=== PATIENT | male | born 1950 | race Caucasian/White ===

== ENCOUNTER 2020-12-29 21:05 | Inpatient (IN) | payer MEDICARE ==
[~2020-12-29] VITALS: Ht 177.8 cm; Wt 153.4 kg
[~2020-12-29 21:05] MED LIST: ASP81CT PO; COLE3.75 PO; HYDR1CAP2 PO; LISI1TAB10 PO; MULT-608 PO; NYST15CR3 TP; OMEG1CAP40 PO; ROSI1TAB23 PO; SERT100T PO
[2020-12-29] MEDS ORDERED: ONDANSETRON 4 MG/2 ML (SDV) Z0FRAN ONE (22:03)
[2020-12-29] MEDS ORDERED: ACETAMINOPHEN 500 MG TAB (TYLENOL) ONE (22:03)
[2020-12-29] MEDS ORDERED: ONDANSETRON 4 MG/2 ML (SDV) Z0FRAN IV STA (22:11)
[2020-12-29] MEDS ORDERED: LACTATED RINGERS 1,000 ML IV ONE (22:15)
[2020-12-29] MEDS ORDERED: cefTRIAXone FOR IV USE 1,000 MG in WATER (STERILE) FOR INJECTION 10 ML IV ONE (22:15)
[2020-12-29] MEDS ORDERED: ACETAMINOPHEN 500 MG TAB (TYLENOL) PO PRN (22:15)
[2020-12-29] MEDS ORDERED: AZITHROMYCIN INJECTION 500 MG in NS (IVPB) 250 ML IV ONE (22:15)
[2020-12-29] MEDS: cefTRIAXone 1,000 MG IV (ROCEPHIN) VIAL ONE (22:17)
[2020-12-29] MEDS: LACTATED RINGERS 1,000 ML IV ONE (22:17)
[2020-12-29] MEDS: WATER (STERILE) FOR INJECTION 10 ML ONE (22:18)
--- NOTE | 2020-12-29 22:19 | ED Respiratory ---
General Chief Complaint: Respiratory Problems Stated Complaint: FEVER/COUGH/NAUSEA Source: patient Exam Limitations: no limitations History of Present Illness Date Seen by Provider: Dec 29, 2020 Time Seen by Provider: 22:00 Initial Comments Patient presents ER by private conveyance from home with chief complaint of nonproductive cough shortness of air fever T-max of 100.5. Been going on for the past several days. He has been dizzy and had 7 or 8 falls in the past couple days. He is not having any pain from any that. Is not on any blood thinners. No loss of consciousness or syncope. He says he gets nauseated whenever he lays flat such as to work on a car but not when he lays down in bed to sleep. He is not having orthopnea or increased swelling or weight gain. He follows with Dr. Crawford but does not have any known coronary, heart failure, dysrhythmia. He is not a smoker. He wanted to be tested for COVID-19. No known sick contacts. He has not had any antipyretics today. The patient wears CPAP at night. He has had a pneumonia vaccine and influenza vaccine this season but no Covid vaccine. Allergies and Home Medications Allergies Coded Allergies: No Known Drug Allergies (Unverified , 01/02/11) Home Medications Aspirin 81 Mg Chew, 81 MG PO DAILY, (Reported) Colesevelam Hcl 3.75 Gm Powd.pack, 3 TAB PO BID, (Reported) Docosahexanoic Acid/Epa 1 Cap Capsule, 1 CAP PO BID, (Reported) Hctz/Lisinopril 1 Tab Tablet, 1 EACH PO DAILY, (Reported) Hydrocodone Bit/Acetaminophen 1 Each Capsule, 1 EACH PO PRN, (Reported) Nystatin 30 Gm Cream.gm., 30 GM TP PRN, (Reported) Rosiglitazone/Metformin Hcl 1 Each Tablet, 1 EACH PO BID, (Reported) Patient Home Medication List Home Medication List Reviewed: Yes Review of Systems Review of Systems Constitutional: chills, dizziness, fever, malaise, weakness EENTM: No ear pain, No eye pain Respiratory: cough; No phlegm; short of breath; No wheezing Cardiovascular: No chest pain, No Hx of Intervention, No palpitations Gastrointestinal: No abdominal pain, No constipation, No diarrhea; nausea; No vomiting Genitourinary: No decreased output, No discharge Musculoskeletal: No back pain, No joint pain Psychiatric/Neurological: Denies Anxiety, Denies Depressed All Other Systems Reviewed Negative Unless Noted: Yes Past Neunpay-Ivsikq-Yzubpb Hx Patient Social History Alcohol Use: Denies Use Smoking Status: Never a Smoker Past Medical History Reproductive Disorders: No Physical Exam Vital Signs - First Documented 12/28/20 3 22:19 21:36 Temp 38.1 Pulse 96 Resp 20 B/P (MAP) 185/91 (122) Pulse Ox 96 O2 Delivery Room Air Capillary Refill : Height: '" Weight: lbs. oz. kg; BMI Method:Stated General Appearance: mild distress, obese Eyes: Bilateral Eye Normal Inspection, Bilateral Eye PERRL, Bilateral Eye EOMI HEENT: PERRL/EOMI, pharynx normal, other (Bilateral TMs with otosclerosis right TM with some clear mucoid effusion and mild bulging. No erythema or injection bilaterally. Canals and pinnae unremarkable.) Neck: full range of motion, normal inspection Respiratory: lungs clear, normal breath sounds, no respiratory distress, no accessory muscle use Cardiovascular: normal peripheral pulses, regular rate, rhythm Gastrointestinal: normal bowel sounds, non tender, soft, no organomegaly Extremities: normal range of motion, normal inspection, normal capillary refill Neurologic/Psychiatric: no motor/sensory deficits, alert, normal mood/affect, oriented x 3 Skin: normal color, warm/dry Focused Exam Lactate Level 12/29/20 22:00: Lactic Acid Level 1.69 Lactic Acid Level Laboratory Tests Test 12/29/20 22:00 Lactic Acid Level 1.69 MMOL/L (0.50-2.00) Progress/Results/Core Measures Suspected Sepsis SIRS Temperature: Pulse: Respiratory Rate: Laboratory Tests 12/29/20 22:00: White Blood Count 11.0 Blood Pressure / Mean: 12/29/20 22:00: Lactic Acid Level 1.69 Laboratory Tests 12/29/20 22:00: Creatinine 1.25, INR Comment 1.0, Platelet Count 201, Total Bilirubin 2.3H Results/Orders Lab Results Laboratory Tests Test 12/29/20 22:00 12/29/20 23:28 Range/Units White Blood Count 11.0 4.3-11.0 10^3/uL Red Blood Count 4.60 4.30-5.52 10^6/uL Hemoglobin 14.0 13.3-17.7 g/dL Hematocrit 41 40-54 % Mean Corpuscular Volume 90 80-99 fL Mean Corpuscular Hemoglobin 30 25-34 pg Mean Corpuscular Hemoglobin Concent 34 32-36 g/dL Red Cell Distribution Width 13.0 10.0-14.5 % Platelet Count 201 130-400 10^3/uL Mean Platelet Volume 10.3 9.0-12.2 fL Immature Granulocyte % (Auto) 1 % Neutrophils (%) (Auto) 85 H 42-75 % Lymphocytes (%) (Auto) 6 L 12-44 % Monocytes (%) (Auto) 8 0-12 % Eosinophils (%) (Auto) 0 0-10 % Basophils (%) (Auto) 0 0-10 % Neutrophils # (Auto) 9.4 H 1.8-7.8 10^3/uL Lymphocytes # (Auto) 0.6 L 1.0-4.0 10^3/uL Monocytes # (Auto) 0.9 0.0-1.0 10^3/uL Eosinophils # (Auto) 0.0 0.0-0.3 10^3/uL Basophils # (Auto) 0.0 0.0-0.1 10^3/uL Immature Granulocyte # (Auto) 0.1 0.0-0.1 10^3/uL Prothrombin Time 14.0 12.2-14.7 SEC INR Comment 1.0 0.8-1.4 Activated Partial Thromboplast Time 35 24-35 SEC Sodium Level 133 L 135-145 MMOL/L Potassium Level 4.1 3.6-5.0 MMOL/L Chloride Level 99 98-107 MMOL/L Carbon Dioxide Level 19 L 21-32 MMOL/L Anion Gap 15 H 5-14 MMOL/L Blood Urea Nitrogen 23 H 7-18 MG/DL Creatinine 1.25 0.60-1.30 MG/DL Estimat Glomerular Filtration Rate 57 BUN/Creatinine Ratio 18 Glucose Level 180 H 70-105 MG/DL Lactic Acid Level 1.69 0.50-2.00 MMOL/L Calcium Level 9.2 8.5-10.1 MG/DL Corrected Calcium 9.2 8.5-10.1 MG/DL Total Bilirubin 2.3 H 0.1-1.0 MG/DL Aspartate Amino Transf (AST/SGOT) 21 5-34 U/L Alanine Aminotransferase (ALT/SGPT) 25 0-55 U/L Alkaline Phosphatase 75 40-136 U/L Total Protein 7.4 6.4-8.2 GM/DL Albumin 4.0 3.2-4.5 GM/DL Coronavirus 2019 (ADAM) Negative Negative Urine Color YELLOW Urine Clarity SL CLOUDY Urine pH 6.0 5-9 Urine Specific Switzer 1.025 H 1.016-1.022 Urine Protein 2+ H NEGATIVE Urine Glucose (UA) NEGATIVE NEGATIVE Urine Ketones 1+ H NEGATIVE Urine Nitrite NEGATIVE NEGATIVE Urine Bilirubin NEGATIVE NEGATIVE Urine Urobilinogen 2.0 < = 1.0 MG/DL Urine Leukocyte Esterase NEGATIVE NEGATIVE Urine RBC (Auto) TRACE-I NEGATIVE Urine RBC NONE /HPF Urine WBC NONE /HPF Urine Squamous Epithelial Cells 0-2 /HPF Urine Crystals NONE /LPF Urine Bacteria FEW H /HPF Urine Casts NONE /LPF Urine Mucus SMALL H /LPF Urine Culture Indicated CULTURE PENDING Micro Results Microbiology 12/29/20 Influenza Types A,B Antigen (ARELY) - Final, Complete My Orders Orders - YOU STERN Lactated Ringers (Lr 1000 Ml Iv Solution (12/29/20 22:02) Ondansetron Injection (Zofran Injectio (12/29/20 22:03) Acetaminophen Tablet (Tylenol Tablet) (12/29/20 22:03) Water (Sterile) For Injection (Sterile W (12/29/20 22:03) Ceftriaxone For Iv Use (Rocephin For I (12/29/20 22:03) Cbc With Automated Diff (12/29/20 22:11) Comprehensive Metabolic Panel (12/29/20 22:11) Blood Culture (12/29/20 22:11) Urinalysis (12/29/20 22:11) Urine Culture (12/29/20 22:11) Protime With Inr (12/29/20 22:11) Partial Thromboplastin Time (12/29/20 22:11) Chest 1 View, Ap/Pa Only (12/29/20 22:11) Acetaminophen Tablet (Tylenol Tablet) (12/29/20 22:15) Ed Iv/Invasive Line Start (12/29/20 22:11) Ed Iv/Invasive Line Start (12/29/20 22:11) Vital Signs Adult Sepsis Patie Q15M (12/29/20 22:11) Ondansetron Injection (Zofran Injectio (12/29/20 22:11) O2 (12/29/20 22:11) Remove Rings In Anticipation O (12/29/20 22:11) Lactic Acid Analyzer (12/29/20 22:11) Influenza A And B Antigens (12/29/20 22:11) Lactated Ringers (Lr 1000 Ml Iv Solution (12/29/20 22:15) Ceftriaxone For Iv Use (Rocephin For I (12/29/20 22:15) Azithromycin Injection (Zithromax Inject (12/29/20 22:15) Ct Head/Cervical Spine Wo (12/29/20 22:11) Covid 19 Inhouse Test (12/29/20 22:11) Medications Given in ED Current Medications Medications Dose Ordered Sig/Chele Route Start Time Stop Time Status Last Admin Dose Admin Acetaminophen 500 mg STK-MED ONCE .ROUTE 12/29/20 22:03 12/29/20 22:09 DC 12/29/20 22:17 1,000 MG Acetaminophen 1,000 mg ONCE PRN PO 12/29/20 22:15 12/29/20 22:20 DC 12/28/20 22:19 1,000 MG Azithromycin 500 mg/Sodium Chloride 255 ml @ 250 mls/hr ONCE ONCE IV 12/29/20 22:15 12/29/20 23:16 DC 12/29/20 22:29 250 MLS/HR Ceftriaxone Sodium 1000 mg/ Sterile Water 10 ml @ 200 mls/hr ONCE ONCE IV 12/29/20 22:15 12/29/20 22:17 DC 12/29/20 22:19 200 MLS/HR Ondansetron HCl 4 mg STK-MED ONCE .ROUTE 12/29/20 22:03 12/29/20 22:09 DC 12/29/20 22:17 8 MG Vital Signs/I&O 12/28/20 12/29/20 12/29/20 22:19 21:36 22:17 Temp 38.1 38.1 38.1 Pulse 96 Resp 20 B/P (MAP) 185/91 (122) Pulse Ox 96 O2 Delivery Room Air 12/30/20 00:00 Intake Total 1265 ml Balance 1265 ml Capillary Refill : Progress Note : Time: 22:17 Progress Note Septic work-up based on his elevated temperature of 100.5 and heart rate in the mid 90s. We have encouraged him to get a CT of his head and C-spine with his history of multiple falls. Nothing tender to suggest further musculoskeletal injury. Suspect pneumonia versus bronchitis. Some of his nausea and dizziness may be related to inner ear infection likely viral as he has a mucoid effusion on his right ear. He has scarring on his TMs related to myringotomy in the past. We will give him some Zofran and Tylenol for his fever and nausea. We will start with just 1 L of fluids while awaiting on the initial Covid and flu swab. If it looks more like a bacterial lobar pneumonia then we will pursue more IV fluids but for now Rocephin and azithromycin. Diagnostic Imaging Diagonstic Imaging: Xray Plain Films/CT/US/NM/MRI: chest Comments No acute cardiopulmonary process. Reviewed: Reviewed by Me Diagonstic Imaging: CT Plain Films/CT/US/NM/MRI: c-spine, head Comments No acute findings in the head or brain. Enlargement of the lateral ventricles. Cannot exclude a normal pressure hydrocephalus. No acute findings in the cervical spine Reviewed: Reviewed Night [facility] Study, Reviewed by Me Departure Communication (Admissions) Time/Spoke to Admitting Phy: 01:06 Dr Crawford: Discussed the case as well as the CT findings. Plan to put him on Rocephin azithromycin but on the floor. She agrees with the inpatient plan for treatment of pneumonia. Covid PUI Impression Primary Impression: Pneumonia Qualified Codes: J18.9 - Pneumonia, unspecified organism Additional Impressions: Sepsis Qualified Codes: A41.9 - Sepsis, unspecified organism Person under investigation for COVID-19 History of falling Suspect normal pressure hydrocephalus Disposition: ADMITTED INPATIENT Condition: Stable Admissions Decision to Admit Reason: Admit from ER (General) Decision to Admit/Date: Dec 30, 2020 Time/Decision to Admit Time: 01:06 Departure-Patient Inst. Referrals: GIOVANNA CRAWFORD MD (PCP/Family) Primary Care Physician YOU STERN Dec 29, 2020 22:19
[2020-12-29 22:30] LABS: BASOPHILS % (AUTO) 0 % (0-10); EOSINOPHILS % (AUTO) 0 % (0-10); HEMATOCRIT 41 % (40-54); LYMPHOCYTES # (AUTO) 0.6 10^3/uL (1.0-4.0); LYMPHOCYTES % (AUTO) 6 % (12-44); MEAN CORPUSCULAR HEMOGLOBIN 30 pg (25-34); MEAN CORPUSCULAR HGB CONC 34 g/dL (32-36); MEAN CORPUSCULAR VOLUME 90 fL (80-99); MEAN PLATELET VOLUME 10.3 fL (9.0-12.2); MONOCYTES # (AUTO) 0.9 10^3/uL (0.0-1.0); MONOCYTES % (AUTO) 8 % (0-12); NEUTROPHILS # (AUTO) 9.4 10^3/uL (1.8-7.8); NEUTROPHILS % (AUTO) 85 % (42-75); PLATELET COUNT 201 10^3/uL (130-400)
[2020-12-29 22:41] LABS: POTASSIUM 4.1 MMOL/L (3.6-5.0)
[2020-12-29 22:42] LABS: CALCIUM 9.2 MG/DL (8.5-10.1)
[2020-12-29 22:43] LABS: TOTAL PROTEIN 7.4 GM/DL (6.4-8.2)
[2020-12-29 22:45] LABS: BILIRUBIN,TOTAL 2.3 MG/DL (0.1-1.0)
[2020-12-29 22:47] LABS: CREATININE SERUM 1.25 MG/DL (0.60-1.30)
[2020-12-29 23:34] LABS: BILIRUBIN,URINE NEGATIVE (NEGATIVE); CLARITY,URINE SL CLOUDY; COLOR,URINE YELLOW; GLUCOSE, URINE (UA) NEGATIVE (NEGATIVE); KETONES,URINE 1+ (NEGATIVE); LEUKOCYTE ESTERASE ,URINE NEGATIVE (NEGATIVE); NITRITE,URINE NEGATIVE (NEGATIVE); PROTEIN,URINE 2+ (NEGATIVE)
[2020-12-29 23:45] LABS: BACTERIA,URINE FEW /HPF; SQUAMOUS EPITHELIAL CELL,UR 0-2 /HPF
[2020-12-30] VITALS (7 sets, daily range): BP systolic 147–185; BP diastolic 65–91
[2020-12-30] MEDS ORDERED: LACTATED RINGERS 1,000 ML IV ONE (01:15)
[2020-12-30] MEDS: LACTATED RINGERS 1,000 ML IV ONE (01:56)
[2020-12-30] MEDS: WATER (STERILE) FOR INJECTION 10 ML ONE (01:57)
[2020-12-30] MEDS: cefTRIAXone 1,000 MG IV (ROCEPHIN) VIAL ONE (01:57)
[2020-12-30] MEDS ORDERED: ONDANSETRON 4 MG/2 ML (SDV) Z0FRAN IV PRN (04:15)
[2020-12-30] MEDS: LACTATED RINGERS 1,000 ML IV SCH ×3 (04:31→17:20)
[2020-12-30] MEDS ORDERED: RT-ALBUTEROL INHALER HFA (VENTOLIN HFA) 18 GM IH PRN (04:45)
[2020-12-30 06:29] LABS: BASOPHILS % (AUTO) 0 % (0-10); EOSINOPHILS % (AUTO) 0 % (0-10); HEMATOCRIT 39 % (40-54); HEMOGLOBIN 12.8 g/dL (13.3-17.7); LYMPHOCYTES # (AUTO) 0.7 10^3/uL (1.0-4.0); LYMPHOCYTES % (AUTO) 8 % (12-44); MEAN CORPUSCULAR HEMOGLOBIN 30 pg (25-34); MEAN CORPUSCULAR HGB CONC 33 g/dL (32-36); MEAN CORPUSCULAR VOLUME 92 fL (80-99); MEAN PLATELET VOLUME 9.8 fL (9.0-12.2); MONOCYTES % (AUTO) 11 % (0-12); NEUTROPHILS # (AUTO) 7.7 10^3/uL (1.8-7.8); NEUTROPHILS % (AUTO) 80 % (42-75); PLATELET COUNT 172 10^3/uL (130-400); WHITE BLOOD COUNT 9.5 10^3/uL (4.3-11.0)
[2020-12-30] MEDS ORDERED: CATHETER FLUSH 10 ML SYR IV PRN (06:30)
[2020-12-30] MEDS: inSUlin ASPART (NovoLOG) 1 UNIT/0.01 ML (CHARGE PER UNIT) SC SCH ×4 (06:32→21:56)
[2020-12-30 06:51] LABS: ALBUMIN 3.6 GM/DL (3.2-4.5)
[2020-12-30 06:52] LABS: CALCIUM 8.9 MG/DL (8.5-10.1)
[2020-12-30 06:53] LABS: TOTAL PROTEIN 6.9 GM/DL (6.4-8.2)
[2020-12-30 06:55] LABS: BILIRUBIN,TOTAL 2.3 MG/DL (0.1-1.0)
[2020-12-30 06:57] LABS: CREATININE SERUM 1.19 MG/DL (0.60-1.30)
--- NOTE | 2020-12-30 07:00 | Diagnostic Imaging Report ---
INDICATION: Sepsis COMPARISON: 01/02/2011 FINDINGS: Single view of the chest demonstrates slight cardiac enlargement. Lungs are otherwise clear. There is no pneumothorax or effusion. Osseous structures are age-appropriate. IMPRESSION: No acute cardiopulmonary findings. Dictated by: Dictated on workstation # [id number]
--- NOTE | 2020-12-30 07:03 | Diagnostic Imaging Report ---
PROCEDURE: CT head and CT cervical spine without contrast. TECHNIQUE: Multiple contiguous axial images were obtained through the brain and cervical spine without the use of intravenous contrast. Sagittal and coronal reformations through the cervical spine were then performed. Auto Exposure Controls were utilized during the CT exam to meet ALARA standards for radiation dose reduction. INDICATION: Trauma, head and neck injury. COMPARISON: None CT HEAD: Age-related cerebral volume loss and chronic microvascular changes are present. The preliminary report did mention some prominent ventricular system which is likely related to the patient's atrophy. There is no focus of acute ischemia or hemorrhage. No extra-axial fluid collection or mass is seen. There is no skull fracture. The mastoids and paranasal sinuses are grossly unremarkable. IMPRESSION: No acute intracranial abnormalities. If normal pressure hydrocephalus is suspected, MRI is recommended. CT cervical spine: Alignment is normal. There is no subluxation or fracture. Mild degenerative changes are seen throughout. There is no osseous lesion. IMPRESSION: No traumatic malalignment or fracture. Dictated by: Dictated on workstation # [id number]
--- NOTE | 2020-12-30 08:56 | History & Physical ---
History of Present Illness History of Present Illness Reason for visit/HPI PT IS A 70 Y/O MALE WHO PRESENTED TO THE EMERGENCY DEPARTMENT AFTER HAVING WEAKNESS AND FALLING AT HOME MULTIPLE TIMES. HE HAD A FEVER ON PRESENTATION TO THE ER, WAS TREATED A COVID PUI AND STARTED ON IV ANTIBIOTICS FOR PNEUMONIA. Date of Admission Dec 30, 2020 at 01:10 Date Seen by a Provider: Dec 30, 2020 Time Seen by a Provider: 08:40 Attending Physician Giovanna Crawford MD Admitting Physician Giovanna Crawford MD Consult Allergies and Home Medications Allergies Coded Allergies: No Known Drug Allergies (Unverified , 01/02/11) Home Medications Allopurinol 300 Mg Tablet, 300 MG PO HS, (Reported) Atorvastatin Calcium 20 Mg Tablet, 20 MG PO HS, (Reported) Insulin Glargine,Hum.rec.anlog 100 Unit/1 Ml Insuln.pen, 80 UNITS SC HS, (Repor lamar) Losartan/Hydrochlorothiazide 1 Each Tablet, 1 EA PO HS, (Reported) Loteprednol Etabonate 5 Gm Drops.gel, 1 DROP OD HS, (Reported) Metformin HCl 850 Mg Tablet, 425 MG PO BID, (Reported) TAKES OF AN 850MG TAB Multivit-Min/FA/Lycopen/Lutein 1 Each Tablet, 1 EACH PO DAILY, (Reported) Patient Home Medication List Home Medication List Reviewed: Yes Past Rykeiia-Qdaoef-Snzzbu Hx Past Med/Social Hx: Reviewed Nursing Past Med/Soc Hx, Reviewed and Corrections made Patient Social History Marrital Status: Living Status: LIVES AT HOME WITH SPOUE Employed/Student: retired ([employer]) Alcohol Use: Denies Use Recreational Drug Use: No Smoking Status: Never a Smoker 2nd Hand Smoke Exposure: No Physical Abuse Screen: No Sexual Abuse: No Recent Foreign Travel: No Contact w/other who traveled: No Recent Hopitalizations: Yes Recent Infectious Disease Expo: No Immunizations Up To Date Date of Influenza Vaccine: Aug 01, 2021 Seasonal Allergies Seasonal Allergies: No Past Medical History Currently Using CPAP: No Currently Using BIPAP: No Cardiac: High Cholesterol, Hypertension Reproductive: No Sexually Transmitted Disease: No HIV/AIDS: No Musculoskeletal: Degenerate Disk Disease Endocrine: Diabetes, Non-Insulin dep Are Your Blood Sugars Over 250: No Loss of Vision: Denies History of Blood Disorders: No Family History Reviewed Nursing Family Hx Hypertension Review of Systems Constitutional: No chills; fever; No malaise, No weakness EENTM: No hoarseness, No throat pain Respiratory: cough, dyspnea on exertion, short of breath Cardiovascular: No chest pain, No palpitations Gastrointestinal: No abdominal pain, No constipation, No diarrhea, No nausea, No vomiting Genitourinary: no symptoms reported Musculoskeletal: back pain, muscle weakness Skin: no symptoms reported Psychiatric/Neurological: No Symptoms Reported All Other Systems Reviewed Negative Unless Noted: Yes Physical Exam Vital Signs Vital Signs - First Documented 12/28/20 12/29/20 12/30/20 12/30/20 22:19 21:36 04:34 22:32 Temp 38.1 Pulse 96 Resp 20 B/P (MAP) 185/91 (122) Pulse Ox 96 O2 Delivery Room Air O2 Flow Rate 21.00 FiO2 21 Capillary Refill : Less Than 3 Seconds Height, Weight, BMI Height: '" Weight: lbs. oz. kg; 46.62 BMI Method:Stated General Appearance: No Apparent Distress, WD/WN Eyes: Bilateral Eye Normal Inspection, Bilateral Eye PERRL, Bilateral Eye EOMI HEENT: PERRL/EOMI, TMs Normal, Normal ENT Inspection, Pharynx Normal Neck: Full Range of Motion, Normal Inspection, Non Tender, Supple Respiratory: Chest Non Tender, No Accessory Muscle Use, No Respiratory Distress, Crackles (BILATERAL LOWER LOBES), Decreased Breath Sounds Cardiovascular: Regular Rate, Rhythm, No Edema, No Gallop, No JVD, No Murmur, Normal Peripheral Pulses Gastrointestinal: Normal Bowel Sounds, No Organomegaly, No Pulsatile Mass, Non Tender, Soft Rectal: Deferred Back: Normal Inspection, No Vertebral Tenderness Extremity: Normal Capillary Refill, Normal Range of Motion, Non Tender, No Calf Tenderness, No Pedal Edema Neurologic/Psychiatric: Alert, Oriented x3, No Motor/Sensory Deficits, Normal Mood/Affect Skin: Normal Color, Warm/Dry Lymphatic: No Adenopathy Assessment/Plan Assessment and Plan COVID PUI PNEUMONIA FEVER SEPSIS HYPERTENSION SEVERE MORBID OBESITY CHRONIC WEAKNESS CHRONIC BACK PAIN COVID PUI - RAPID TEST NEGATIVE - WAITING ON PCR TESTING - BREATHING TREATMENTS, OXYGEN PNEUMONIA - IV ANTIBIOTICS - ROCEPHIN AND AZITHROMYCIN FEVER - TYLENOL AND MOTRIN PRN SEPSIS - IMPROVED - PROTOCOL WITH FLUIDS, MONITOR SYMPTOMS. HYPERTENSION - RESUME HOME REGIMEN SEVERE MORBID OBESITY CHRONIC WEAKNESS WITH CHRONIC BACK PAIN - CONTINUE WITH PLANS FOR THERAPY, MONITOR SYMPTOMS, MAY NEED TO CONSIDER INPT REHAB DVT PROPHYLAXIS WITH SCD'S GI PROPHYLAXIS WITH PPI Admission Diagnosis COVID PUI PNEUMONIA FEVER SEPSIS HYPERTENSION SEVERE MORBID OBESITY CHRONIC WEAKNESS CHRONIC BACK PAIN Admission Status: Inpatient Order (span 2 midnights) Reason for Inpatient Admission: PT ADMITTED TO HOSPITAL FOR PNEUMONIA, SEPSIS, COVID PUI - WILL REQUIRE AT LEAST 72+ HOURS IN HOSPITAL FOR TREATMENT AND STABILIZATION OF SYMPTOMS GIOVANNA CRAWFORD MD Dec 30, 2020 08:56
[2020-12-30] MEDS: ACETAMINOPHEN 500 MG TAB (TYLENOL) PO PRN ×2 (10:14→20:58)
[2020-12-30] MEDS: RT-ALBUTEROL INHALER HFA (VENTOLIN HFA) 18 GM IH SCH ×2 (10:51→18:41)
--- NOTE | 2020-12-30 14:38 | Occupational Therapy Eval ---
OT Evaluation-General/PLF Medical Diagnosis Admission Date Dec 30, 2020 at 01:10 Medical Diagnosis: PNA, sepsis, dehydration, COVID PUI Onset Date: Dec 30, 2020 Therapy Diagnosis Therapy Diagnosis: weakness Precautions Precautions/Isolations: Fall Prevention, Standard Precautions Referral Physician: Ty Referral Reason: Evaluation/Treatment Medical History Current History ED from home, c/o nonproductive cough, SOA and fever. Pt reports dizziness wtih 7-8 falls the past couple of days. He is PUI for COVID-19, no known exposures Social History Home: Single Level Current Living Status: Spouse ADL-Prior Level of Function SCALE: Activities may be completed with or without assistive devices. 2-Hlssdgovwm-muakvce completes the activity by him/herself with no assistance from a helper. 5-Set-up or Clean-up Assistance-helper sets up or cleans up; patient completes activity. [place] assists only prior to or following the activity. 4-Supervision or Touching Assistance-helper provides verbal cues and/or touching/steadying and/or contact guard assistance as patient completes activity. Assistance may be provided throughout the activity or intermittently. 3-Partial/Moderate Assistance-helper does LESS THAN HALF the effort. [place] lifts, holds or supports trunk or limbs, but provides less than half the effort. 2-Substantial/Maximal Assistance-helper does MORE THAN HALF the effort. [place] lifts or holds trunk or limbs and provides more than half the effort. 1-Mioqhtskm-fcmywq does ALL the effort. Patient does none of the effort to complete the activity. Or, the assistance of 2 or more helpers is required for the patient to complete the activity. If activity was not attempted, code reason: 7-Patient Refused. 9-Not Applicable-not attempted and the patient did not perform the activity before the current illness, exacerbation or injury. 10-Not Attempted due to Environmental Limitations-(lack of equipment, weather restraints, etc.). 88-Not Attempted due to Medical Conditions or Safety Concerns. ADL PLOF Comments Pt reports independent with ADLs and functional mobility at [facility]. Pt indicates he typically uses a cane, although he has been using a walker recently. He is unable to complete footwear at home, has assistance donning/doffing socks and shoes. He is able to complete other dressing tasks, shower, and toilet independently. Self Care: Needed Some Help Functional Cognition: Independent DME/Equipment Comments walker, cane. OT Current Status Subjective Pt seated in recliner, agreeable to OT evaluation and tx. Pt does not report any pain, and indicates he is feeling a lot better. Mental Status/Objective Patient Orientation: Person, Place, Time, Situation Attachments: IV Current Upper Extremity ROM WFL Upper Extremity Coordination WFL Upper Extremity Sensation WFL Upper Extremity Strength grossly 4/5 BUEs ADL-Treatment Eating (QC): 6 (Pt reports independent with lunch, able to open containers and use utensils) On/Off Footwear (QC): 1 (Pt requires assistance to doff/don gripper socks.) Other Treatments Pt seated in recliner, used FWW to perform functional mobility to his door and back to recliner, CGA and assist with IV pole. Pt required a seated rest break, then able to complete functional mobility again. With transfers, pt requires skilled verbal cues for hand placement prior to sit <-> stand transfers. Pt educated on safety aspect of reaching back for surface prior to sitting, and pushing up from armrests instead of walker, he verbalizes understanding. Pt attempts to complete footwear, but requires assistance donning/doffing gripper socks. Pt indicates he has assistance with footwear at home, but is able to complete other dressing parts including threading LE clothing. OT educated pt on OT POC while he is admitted to hospital, with focus on increasing BUE strength and activity tolerance, and increasing safety/independence with ADLS and functional mobility, he verbalizes understanding. Post tx, pt seated in recliner, call light in reach and all needs met. Education OT Patient Education: Correct positioning, Energy conservation, Modified ADL techniques, Progress toward Goal/Update tx plan, Purpose of tx/functional activities, Safety issues, Transfer techniques Teaching Recipient: Patient Teaching Methods: Discussion Response to Teaching: Verbalize Understanding OT [facility] Goals Finance Vice President Goals Time Frame: Jan 09, 2021 Eating (QC): 6 Oral Hygiene (QC): 6 Toileting Hygiene (QC): 6 Shower/Bathe Self (QC): 6 Upper Body Dressing (QC): 6 Lower Body Dressing (QC): 6 On/Off Footwear (QC): 2 Additional Goals: 1-Demonstrate ADL Tasks, 2-Verbalize Understanding, 3- ImproveStrength/Rohini 1=Demonstrate adherence to instructed precautions during ADL tasks. 2=Patient will verbalize/demonstrate understanding of assistive devices/modifications for ADL. 3=Patient will improve strength/tolerance for activity to enable patient to perform ADL's. OT Education/Plan Problem List/Assessment Assessment: Decreased Activ Tolerance, Decreased UE Strength, Impaired Funct Balance, Impaired I ADL's, Impaired Self-Care Skills Pt would benefit from skilled OT services in order to increase BUE strength and activity tolerance, and to increase safety and independence with functional mobility and ADLs to maximize LOF for safe return home. Discharge Recommendations Plan/Recommendations: Continue POC Therapy Discharge Recommendati: Home & Family Treatment Plan/Plan of Care Patient would benefit from OT for education, treatment and training to promote independence in ADL's, mobility, safety and/or upper extremity function for ADL's. Plan of Care: ADL Retraining, Functional Mobility, UE Funct Exercise/Act Treatment Duration: Jan 09, 2021 Frequency: 5 times per week Estimated Hrs Per Day: .25 hour per day Agreement: Yes Rehab Potential: Good Time/GCodes Start Time: 14:10 Stop Time: 14:25 Total Time Billed (hr/min): 15 Billed Treatment Time 1, MELISSA TEMPLETON OT Dec 30, 2020 14:38
--- NOTE | 2020-12-30 15:17 | Physical Therapy Evaluation ---
PT Evaluation-General Medical Diagnosis Admission Date Dec 30, 2020 at 01:10 Medical Diagnosis: PNA, sepsis, dehydration, COVID PUI Onset Date: Dec 30, 2020 Therapy Diagnosis Therapy Diagnosis: debility/weakness Precautions Precautions/Isolations: Fall Prevention, Standard Precautions Referral Physician: Ty Reason for Referral: Evaluation/Treatment Medical History Additional Medical History morbid obesity Reviewed History: Yes Social History Home: Single Level Current Living Status: Spouse Entry Into Home: Level Entry Prior Prior Level of Function SCALE: Activities may be completed with or without assistive devices. 4-Obzpmgbsae-wbtrhuz completes the activity by him/herself with no assistance from a helper. 5-Set-up or Clean-up Assistance-helper sets up or cleans up; patient completes activity. [place] assists only prior to or following the activity. 4-Supervision or Touching Assistance-helper provides verbal cues and/or touching/steadying and/or contact guard assistance as patient completes activity. Assistance may be provided throughout the activity or intermittently. 3-Partial/Moderate Assistance-helper does LESS THAN HALF the effort. [place] lifts, holds or supports trunk or limbs, but provides less than half the effort. 2-Substantial/Maximal Assistance-helper does MORE THAN HALF the effort. [place] lifts or holds trunk or limbs and provides more than half the effort. 3-Jkieafkus-tcdzxi does ALL the effort. Patient does none of the effort to complete the activity. Or, the assistance of 2 or more helpers is required for the patient to complete the activity. If activity was not attempted, code reason: 7-Patient Refused. 9-Not Applicable-not attempted and the patient did not perform the activity before the current illness, exacerbation or injury. 10-Not Attempted due to Environmental Limitations-(lack of equipment, weather restraints, etc.). 88-Not Attempted due to Medical Conditions or Safety Concerns. Bed Mobility: 6 Transfers (B,C,W/C): 6 Gait: 6 Indoor Mobility (Ambulation): Independent Prior Devices Use: Walker PT Evaluation-Current Subjective Patient agrees to PT. He reports decrease in activity during Covid (the past year). Objective Patient Orientation: Normal For Age Attachments: IV ROM/Strength ROM Lower Extremities bilateral LE WFL Strength Lower Extremities 4-/5 grossly bilateral LE all planes Integumentary/Posture Integumentary refer to nursing notes Bowel Incontinence: No Bladder Incontinence: No Posture slight trunk flexed posture Neuromuscular (Tone, Coordination, Reflexes) grossly intact Sensory Vision: Functional Hearing: Impaired Transfers Roll Left to Right (QC): 4 Sit to Lying (QC): 4 Lying to Sitting/Side of Bed(Q: 4 Sit to Stand (QC): 4 Chair/Iic-xd-Bqfwc Xfer(QC): 4 Gait Does the Patient Walk?: Yes Mode of Locomotion: Walk Anticipated Mode of Locomotion: Walk Walk 10 feet (QC): 4 Walk 50 ft with 2 Turns(QC): 4 Walk 150 ft (QC): 88 Distance: 50' x 2 Gait Assistive Device: FWW Comments/Gait Description fatigues quickly with minimal activity/ "melts" during gait with FWW due to weakness Balance Sitting Static: Normal Sitting Dynamic: Normal Standing Static: Fair Standing Dynamic: Fair Assessment/Needs 70 y.o. male, will benefit from skilled PT to address functional strength and mobility to improve current LOF to safely return to home at maximum LOF. Rehab Potential: Fair PT Fci Goals Fci Goals PT Fci Goals Time Frame: Jan 10, 2021 Roll Left & Right (QC): 6 Sit to Lying (QC): 6 Lying-Sitting on Side/Bed(QC): 6 Sit to Stand (QC): 6 Chair/The-ke-Olyue Xfer(QC): 6 Toilet Transfer (QC): 6 Car Transfer (QC): 6 Does the Patient Walk: Yes Walk 10 feet (QC): 6 Walk 50ft with 2 Turns (QC): 6 Walk 150 ft (QC): 6 PT Plan Problem List Problem List: Activity Tolerance, Functional Strength, Safety, Balance, Gait, Transfer, Bed Mobility Treatment/Plan Treatment Plan: Continue Plan of Care Treatment Plan: Bed Mobility, Education, Functional Activity Rohini, Functional Strength, Gait, Safety, Therapeutic Exercise, Transfers Treatment Duration: Jan 10, 2021 Frequency: 6 times per week Estimated Hrs Per Day: .25 hour per day Patient and/or Family Agrees t: Yes Time/GCodes Time In: 1415 Time Out: 1429 Total Billed Treatment Time: 14 Total Billed Treatment 1 visit EVModC 14 min SHANNON BARTHOLOMEW PT Dec 30, 2020 15:17
[2020-12-30] MEDS ORDERED: cefTRIAXone 1,000 MG/SWFI 10 ML IV PUSH IV SCH ×2 (21:00)
[2020-12-30] MEDS ORDERED: AZITHROMYCIN 500 MG/NS 250 ML IVPB IV SCH ×2 (21:00)
[2020-12-31] MEDS: LACTATED RINGERS 1,000 ML IV SCH ×3 (00:04→17:04)
[2020-12-31 04:24] VITALS: BP 154/77
[2020-12-31] MEDS: inSUlin ASPART (NovoLOG) 1 UNIT/0.01 ML (CHARGE PER UNIT) SC SCH ×4 (05:24→21:22)
[2020-12-31] MEDS: RT-ALBUTEROL INHALER HFA (VENTOLIN HFA) 18 GM IH SCH ×2 (07:11→18:48)
--- NOTE | 2020-12-31 07:43 | Diagnostic Imaging Report ---
INDICATION: Pneumonia. Followup. COMPARISON: 12/29/2020 FINDINGS: Single frontal view of the chest demonstrates normal heart size and pulmonary vascularity. The lungs show low inspiratory volumes, but are otherwise clear. No large pleural effusion or pneumothorax is seen. The visualized osseous structures show no acute abnormalities. IMPRESSION: 1. No acute cardiopulmonary process. Dictated by: Dictated on workstation # [id number]
[2020-12-31 08:00] VITALS: BP 135/60
[2020-12-31] MEDS ORDERED: METF-398 PO (09:10)
[2020-12-31] MEDS ORDERED: ATOR20TA66 PO (09:10)
[2020-12-31] MEDS ORDERED: MULT-1061 PO (09:10)
[2020-12-31] MEDS ORDERED: INSU100I34 SC (09:10)
[2020-12-31] MEDS ORDERED: LOTE5GEL OD (09:10)
[2020-12-31] MEDS ORDERED: LOSA1TAB20 PO (09:10)
[2020-12-31] MEDS ORDERED: ALLO300T2 PO (09:10)
--- NOTE | 2020-12-31 09:27 | Progress Note ---
Subjective Subjective Date Seen by Provider: Dec 31, 2020 Time Seen by Provider: 09:00 TODAY CAYDEN IS IRRITABLE AND RUDE TO MYSELF AND THE STAFF. HE REPORTS THAT HE WANTS SOMETHING DONE RIGHT NOW TO STOP HIS FEVER AND FIGURE OUT WHERE HIS INFECTION IS COMING FROM AND FOR ME TO STOP IT RIGHT AWAY. HE STATES THAT HE HAS BEEN SICK FOR DAYS AND IT IS RIDICULOUS THAT IT HAS NOT BEEN STOPPED BY NOW. I REMINDED CAYDEN THAT HE HAS BEEN IN THE HOSPITAL FOR ABOUT 48 HOURS AND THAT HIS FEVER IS BETTER, HE IS GETTING BETTER AND IT TAKES TIME TO ACCOMPLISH WELLNESS. Review of Systems General: No Chills; Fatigue, Malaise, Other (FEVER) HEENT: No Head Aches, No Visual Changes, No Dysphasia Pulmonary: Dyspnea, Cough Cardiovascular: No: Chest Pain, Palpitations Gastrointestinal: No: Nausea, Abdominal Pain Genitourinary: No Dysuria; Frequency Musculoskeletal: other (GENERALIZED MUSCLE WEAKNESS), back pain Neurological: Weakness All Other Systems Reviewed All Other Systems Reviewed: Yes Objective Exam Vital Signs Vital Signs - First Documented 12/28/20 12/29/20 12/30/20 12/30/20 22:19 21:36 04:34 22:32 Temp 38.1 Pulse 96 Resp 20 B/P (MAP) 185/91 (122) Pulse Ox 96 O2 Delivery Room Air O2 Flow Rate 21.00 FiO2 21 Capillary Refill : Less Than 3 Seconds General Appearance: No Apparent Distress, WD/WN Eyes: Bilateral Eye Normal Inspection, Bilateral Eye PERRL, Bilateral Eye EOMI HEENT: PERRL/EOMI, TMs Normal, Pharynx Normal Neck: Full Range of Motion, Non Tender, Supple Respiratory: Chest Non Tender, Crackles (LEFT BASE), Decreased Breath Sounds Cardiovascular: Regular Rate, Rhythm, Normal Peripheral Pulses Gastrointestinal: Normal Bowel Sounds, Non Tender, Soft, Other (GROSSLY OBESE ABDOMEN) Rectal: Deferred Extremity: Pedal Edema Neurologic/Psychiatric: Alert, Oriented x3, No Motor/Sensory Deficits, signal maintainer helper II- XII Norm as Tested, Other (IRRITABLE) Skin: Normal Color, Warm/Dry Lymphatic: No Adenopathy Results Lab Laboratory Tests 12/30/20 10:27: Glucometer 153H 12/30/20 16:10: Glucometer 238H 12/30/20 20:30: Glucometer 247H 12/31/20 05:23: Glucometer 164H Microbiology 12/30/20 Gram Stain - Final, Resulted 12/30/20 Sputum Culture, Resulted Pending 12/29/20 Urine Culture - Final, Complete >=3 Gram Positive Isolates 12/29/20 Blood Culture - Preliminary, Resulted No growth Assessment/Plan Assessment/Plan Admission Dx COVID PUI PNEUMONIA FEVER SEPSIS HYPERTENSION SEVERE MORBID OBESITY CHRONIC WEAKNESS CHRONIC BACK PAIN Assessment and Plan COVID PUI PNEUMONIA FEVER SEPSIS HYPERTENSION SEVERE MORBID OBESITY CHRONIC WEAKNESS CHRONIC BACK PAIN TODAY PT AGREES TO EVAL BY INPT REHAB UNIT FOR POSSIBLE MOVE THERE LATER THIS WEEK. COVID PUI NEGATIVE - RAPID TEST NEGATIVE WITH NEGATIVE PCR TESTING - BREATHING TREATMENTS, OXYGEN PNEUMONIA - IV ANTIBIOTICS - ROCEPHIN AND AZITHROMYCIN WITH HIS PERSISTENT FEVER, WILL CHANGE TO ZOSYN. FEVER - TYLENOL AND MOTRIN PRN SEPSIS - IMPROVED - PROTOCOL WITH FLUIDS, MONITOR SYMPTOMS. HYPERTENSION - RESUME HOME REGIMEN SEVERE MORBID OBESITY CHRONIC WEAKNESS WITH CHRONIC BACK PAIN - THERAPY NOTES SIGNIFICANT WEAKNESS - DISCUSSED WITH PT AND HIS , WILL CONSULT INPT REHAB UNIT AND WILL TRANSFER HIM TOMORROW IF HE QUALIFIES - WILL HAVE PT ON IV ANTIBIOTICS ON DISCHARGE TO IRF. DVT PROPHYLAXIS WITH SCD'S GI PROPHYLAXIS WITH PPI GIOVANNA ELIAS MD Dec 31, 2020 09:27
[2020-12-31] MEDS ORDERED: FUROSEMIDE 40 MG/4 ML INJ (LASIX) IVP ONE (09:45)
[2020-12-31] MEDS ORDERED: PIPERACILLIN/TAZOBACTAM (BULK) 4.5 GM in NS (IVPB) 100 ML IV NR (10:00)
--- NOTE | 2020-12-31 10:34 | Physical Therapy Daily Note ---
PT Daily Note-Current Subjective Patient seated upright in chair pre tx. Patient did not complain of pain, but noted he felt feverish and wanted to take a tylenol. We took patient's temperature and it was 98.9 degrees. Patient was mildly agitated, but with some encouragement and consoling patient cooperated and consented to therapy. Patient's current temp and request for tylenol was forwarded to the nurse. Appearance Patient was left in chair seated upright with call button within reach and tray table positioned next to him. Mental Status Attachments: Other-See Comments (Patient was masked in room), IV Transfers SCALE: Activities may be completed with or without assistive devices. 4-Mxbejtmqka-zicqpbs completes the activity by him/herself with no assistance from a helper. 5-Set-up or Clean-up Assistance-helper sets up or cleans up; patient completes activity. [place] assists only prior to or following the activity. 4-Supervision or Touching Assistance-helper provides verbal cues and/or touching/steadying and/or contact guard assistance as patient completes activity. Assistance may be provided throughout the activity or intermittently. 3-Partial/Moderate Assistance-helper does LESS THAN HALF the effort. [place] lifts, holds or supports trunk or limbs, but provides less than half the effort. 2-Substantial/Maximal Assistance-helper does MORE THAN HALF the effort. [place] lifts or holds trunk or limbs and provides more than half the effort. 6-Idavpjdlr-sittok does ALL the effort. Patient does none of the effort to complete the activity. Or, the assistance of 2 or more helpers is required for the patient to complete the activity. If activity was not attempted, code reason: 7-Patient Refused. 9-Not Applicable-not attempted and the patient did not perform the activity before the current illness, exacerbation or injury. 10-Not Attempted due to Environmental Limitations-(lack of equipment, weather restraints, etc.). 88-Not Attempted due to Medical Conditions or Safety Concerns. Sit to Stand (QC): 4 Patient was CGA x1 with sit <> stand transfer. Patient required 2 attempts using forward thrusting movement to perform full transfer. Gait Training Does the Patient Walk?: Yes Distance: 60' Walk 10 feet (QC): 4 Walk 50 ft with 2 Turns(QC): 4 Gait Persons Needed: 1 Gait Assistive Device: FWW Patient ambulates quickly, but feet are not as steady with shuffling feet and poor heel strike. Patient relies on the walker with his upper body, but positions walker in far forward in front of body. Patient noted he needed a rest during last 20' of ambulation, at last 8' he noted he needed to sit down and became SOB. SOB relieved when mask was taken off and patient was seated safely in chair. Exercises Seated Therapy Exercises: Ankle pumps, Long arc quads, Hip flexion Seated Reps: 15 Treatments Patient performed LE strengthening and ROM, and Gait Training for pneumonia and DVT prevention and to promote functional activity, strength, and endurance deficits. Assessment Current Status: Fair Progress Patient will benefit from PT to promote endurance needed for patient to return to [facility] with at home independence. Patient will need further encouragement and education regarding his need for therapies. PT Correction Goals Correction Goals PT Research Tech Goals Time Frame: Jan 10, 2021 Roll Left & Right (QC): 6 Sit to Lying (QC): 6 Lying-Sitting on Side/Bed(QC): 6 Sit to Stand (QC): 6 Chair/Jdh-bb-Touwj Xfer(QC): 6 Toilet Transfer (QC): 6 Car Transfer (QC): 6 Does the Patient Walk: Yes Walk 10 feet (QC): 6 Walk 50ft with 2 Turns (QC): 6 Walk 150 ft (QC): 6 PT Plan Problem List Problem List: Activity Tolerance, Functional Strength, Safety, Gait, Transfer, ROM Treatment/Plan Treatment Plan: Continue Plan of Care Treatment Plan: Bed Mobility, Education, Functional Activity Rohini, Functional Strength, Gait, Safety, Therapeutic Exercise, Transfers Treatment Duration: Jan 10, 2021 Frequency: 6 times per week Estimated Hrs Per Day: .25 hour per day Patient and/or Family Agrees t: Yes Safety Risks/Education Patient Education: Transfer Techniques Teaching Recipient: Patient Teaching Methods: Discussion Response to Teaching: Verbalize Understanding Patient instructed to push off with both hands from seated position during sit <> stand transfer for safety concerns regarding relying heavily on walker with UE's. Time/GCodes Time In: 1010 Time Out: 1025 Total Billed Treatment Time: 15 Total Billed Treatment 1 visit: FA: 15' JASPER MARTINEZ [employer] STE[employer]ER Dec 31, 2020 10:34
[2020-12-31] MEDS: ACETAMINOPHEN 500 MG TAB (TYLENOL) PO PRN (11:52)
[2020-12-31 12:38] VITALS: BP 132/63
--- NOTE | 2020-12-31 13:55 | Occupational Ther Daily Note ---
OT Current Status-Daily Note Subjective Pt agreeable to OT Tx with focus on UE exercises. Pt does not report any pain. ADL-Treatment Therapy Code Descriptions/Definitions Functional [place] Measure: 0=Not Assessed/NA 4=Minimal Assistance 1=Total Assistance 5=Supervision or Setup 2=Maximal Assistance 6=Modified [place] 3=Moderate Assistance 7=Complete IndependenceSCALE: Activities may be completed with or without assistive devices. 5-Oauiazprmw-jhmgdeo completes the activity by him/herself with no assistance from a helper. 5-Set-up or Clean-up Assistance-helper sets up or cleans up; patient completes activity. [place] assists only prior to or following the activity. 4-Supervision or Touching Assistance-helper provides verbal cues and/or touching/steadying and/or contact guard assistance as patient completes activity. Assistance may be provided throughout the activity or intermittently. 3-Partial/Moderate Assistance-helper does LESS THAN HALF the effort. [place] lifts, holds or supports trunk or limbs, but provides less than half the effort. 2-Substantial/Maximal Assistance-helper does MORE THAN HALF the effort. [place] lifts or holds trunk or limbs and provides more than half the effort. 2-Xuggstmwi-wdcjjw does ALL the effort. Patient does none of the effort to complete the activity. Or, the assistance of 2 or more helpers is required for the patient to complete the activity. If activity was not attempted, code reason: 7-Patient Refused. 9-Not Applicable-not attempted and the patient did not perform the activity before the current illness, exacerbation or injury. 10-Not Attempted due to Environmental Limitations-(lack of equipment, weather restraints, etc.). 88-Not Attempted due to Medical Conditions or Safety Concerns. Other Treatment OT tx with focus on UE exercise in order to increase BUE strength and functional activity tolerance. OT educated pt on BUE exercise using moderate resistance theraband, pt completed x15 reps each of the following:shoulder flexion, elbow extension and horizontal abduction. Pt required moderate skilled verbal cues throughout the exercises. Noted LUE shoulder flexion to approx 90 degrees. OT educated pt on completing exercises 2-3 times a day, he verbalized understanding. Post tx, pt seated in recliner, call light in reach and all needs met. Education OT Patient Education: Correct positioning, Exercise program, Modified ADL techniques, Progress toward Goal/Update tx plan, Purpose of tx/functional activities Teaching Recipient: Patient Teaching Methods: Discussion Response to Teaching: Verbalize Understanding OT Custodial Goals Custodial Goals Time Frame: Jan 09, 2021 Eating (QC): 6 Oral Hygiene (QC): 6 Toileting Hygiene (QC): 6 Shower/Bathe Self (QC): 6 Upper Body Dressing (QC): 6 Lower Body Dressing (QC): 6 On/Off Footwear (QC): 2 Additional Goals: 1-Demonstrate ADL Tasks, 2-Verbalize Understanding, 3- ImproveStrength/Rohini 1=Demonstrate adherence to instructed precautions during ADL tasks. 2=Patient will verbalize/demonstrate understanding of assistive devices/modifications for ADL. 3=Patient will improve strength/tolerance for activity to enable patient to perform ADL's. OT Education/Plan Problem List/Assessment Assessment: Decreased Activ Tolerance, Decreased UE Strength, Impaired I ADL's, Impaired Self-Care Skills Pt would benefit from skilled OT services in order to increase BUE strength and activity tolerance, and to increase safety and independence with functional mobility and ADLs to maximize LOF for safe return home. Discharge Recommendations Plan/Recommendations: Continue POC Treatment Plan/Plan of Care Patient would benefit from OT for education, treatment and training to promote independence in ADL's, mobility, safety and/or upper extremity function for ADL's. Plan of Care: ADL Retraining, Functional Mobility, UE Funct Exercise/Act Treatment Duration: Jan 09, 2021 Frequency: 5 times per week Estimated Hrs Per Day: .25 hour per day Agreement: Yes Rehab Potential: Fair Time/GCodes Start Time: 13:37 Stop Time: 13:48 Total Time Billed (hr/min): 11 Billed Treatment Time 1, EX MELISSA ARIAS OT Dec 31, 2020 13:55
[2020-12-31 16:00] VITALS: BP 150/65
[2020-12-31] MEDS: PIPERACILLIN/TAZOBACTAM (BULK) 4.5 GM in NS (IVPB) 100 ML IV SCH (17:01)
[2020-12-31] MEDS: metFORMIN 850 MG (GLUCOPHAGE) TAB PO SCH (17:14)
[2020-12-31 20:30] VITALS: BP 128/58
[2020-12-31] MEDS ORDERED: NON-FORMULARY MEDICATION 1 EA EA (Loteprednol Etabonate (Lotemax) 1 DROP) OD SCH (21:00)
[2020-12-31] MEDS ORDERED: LOSARTAN 50 MG (COZAAR) TAB PO SCH (21:00)
[2020-12-31] MEDS ORDERED: ALLOPURINOL 300 MG (ZYLOPRIM) TAB PO SCH (21:00)
[2020-12-31] MEDS ORDERED: HYDROCHLOROTHIAZIDE 12.5 MG (HCTZ) CAP PO SCH (21:00)
[2021-01-01 00:59] VITALS: BP 168/71
[2021-01-01] MEDS: PIPERACILLIN/TAZOBACTAM (BULK) 4.5 GM in NS (IVPB) 100 ML IV SCH ×2 (01:05→08:45)
[2021-01-01 04:19] LABS: HEMOGLOBIN 11.6 g/dL (13.3-17.7); MEAN PLATELET VOLUME 10.2 fL (9.0-12.2); WHITE BLOOD COUNT 5.5 10^3/uL (4.3-11.0)
[2021-01-01 04:30] LABS: ALBUMIN 3.3 GM/DL (3.2-4.5)
[2021-01-01 04:31] LABS: POTASSIUM 3.4 MMOL/L (3.6-5.0)
[2021-01-01 04:32] LABS: CALCIUM 8.4 MG/DL (8.5-10.1)
[2021-01-01 04:33] LABS: TOTAL PROTEIN 6.4 GM/DL (6.4-8.2)
[2021-01-01 04:35] LABS: BILIRUBIN,TOTAL 0.7 MG/DL (0.1-1.0)
[2021-01-01 04:37] LABS: CREATININE SERUM 1.36 MG/DL (0.60-1.30)
[2021-01-01] MEDS: inSUlin ASPART (NovoLOG) 1 UNIT/0.01 ML (CHARGE PER UNIT) SC SCH ×2 (04:43→11:32)
[2021-01-01 04:47] VITALS: BP 146/67
[2021-01-01] MEDS: LACTATED RINGERS 1,000 ML IV SCH (06:58)
[2021-01-01 07:29] VITALS: BP 134/62
[2021-01-01] MEDS: RT-ALBUTEROL INHALER HFA (VENTOLIN HFA) 18 GM IH SCH (08:26)
[2021-01-01] MEDS ORDERED: KCL 20 MEQ TAB (K-DUR) PO NR (08:45)
[2021-01-01] MEDS: metFORMIN 850 MG (GLUCOPHAGE) TAB PO SCH (08:45)
--- NOTE | 2021-01-01 08:49 | Progress Note ---
Subjective Date Seen by a Provider: Jan 01, 2021 Time Seen by a Provider: 08:46 Subjective/Events-last exam Fwup pneumonia with sepsis, HTN, ROSS, DMII, weakness and falls. Resting in bed with CPAP on. Feeling better. Fevers better. Focused Exam Lactate Level 12/29/20 22:00: Lactic Acid Level 1.69 Objective Exam Vital Signs Date Time Temp Pulse Resp B/P (MAP) Pulse Ox O2 Delivery O2 Flow Rate FiO2 01/01/21 08:26 92 Room Air 01/01/21 08:18 NIV CPAP 01/01/21 07:29 36.4 83 134/62 (86) 93 NIV CPAP 01/01/21 04:47 37.3 82 22 146/67 (93) 95 Room Air 01/01/21 00:59 36.8 96 22 168/71 (103) 92 Room Air 12/31/20 20:30 36.7 92 20 128/58 (81) 98 Room Air 12/31/20 18:49 95 Room Air 12/31/20 16:00 36.3 82 20 150/65 (93) 96 Room Air 12/31/20 12:38 37.1 87 132/63 (86) 94 Room Air 12/31/20 10:35 37.0 12/31/20 09:00 Room Air 12/31/20 09:00 38.0 I & O 01/01/21 07:00 Intake Total 2240 ml Output Total 804 ml Balance 1436 ml Capillary Refill : Less Than 3 Seconds General Appearance: No Apparent Distress Neck: Supple Respiratory: Lungs Clear Cardiovascular: Regular Rate, Rhythm Gastrointestinal: normal bowel sounds, non tender, soft Extremity: Non Tender, No Calf Tenderness, No Pedal Edema Neurologic/Psychiatric: Alert, Oriented x3 Results Lab Laboratory Tests 12/31/20 11:43: Glucometer 266H 12/31/20 16:23: Glucometer 199H 12/31/20 21:02: Glucometer 266H 01/01/21 03:55: White Blood Count 5.5, Red Blood Count 3.89L, Hemoglobin 11.6L, Hematocrit 35L, Mean Corpuscular Volume 90, Mean Corpuscular Hemoglobin 30, Mean Corpuscular Hemoglobin Concent 33, Red Cell Distribution Width 13.0, Platelet Count 213, Mean Platelet Volume 10.2, Sodium Level 135, Potassium Level 3.4L, Chloride Level 101, Carbon Dioxide Level 24, Anion Gap 10, Blood Urea Nitrogen 21H, Creatinine 1.36H, Estimat Glomerular Filtration Rate 52, BUN/Creatinine Ratio 15, Glucose Level 148H, Calcium Level 8.4L, Corrected Calcium 9.0, Total Bilirubin 0.7, Aspartate Amino Transf (AST/SGOT) 33, Alanine Aminotransferase (ALT/SGPT) 42, Alkaline Phosphatase 66, Total Protein 6.4, Albumin 3.3 Microbiology 12/30/20 Gram Stain - Final, Resulted 12/30/20 Sputum Culture - Preliminary, Resulted Usual upper respiratory [place]land 12/29/20 Urine Culture - Final, Complete >=3 Gram Positive Isolates 12/29/20 Blood Culture - Preliminary, Resulted No growth Assessment/Plan Assessment/Plan Assess & Plan/Chief Complaint 1. Pneumonia with sepsis--on zosyn, fevers better, WBC count normal 2. Hypertension--stable 3. DMII--insulin requiring--increase levemir dose and continue accuchecks with SSI 4. Weakness/Falls--continue PT/OT--plan is for rehab SHAYNE SINCLAIR DO Jan 01, 2021 08:49
--- NOTE | 2021-01-01 09:06 | Diagnostic Imaging Report ---
EXAMINATION: PA and lateral chest at 8:44 AM INDICATION: Pneumonia The heart size is within normal limits and stable when compared to 12/31/2020. In the interval since the prior study a vague area of increased density has developed in the left midlung. I am suspicious that this is related to pneumonia/atelectasis. There does not appear to be any significant fluid in the left lung base and left apex is clear. The right lung is generally clear as well. The mediastinum is not widened. The osseous structures are intact. IMPRESSION: The appearance of the chest has worsened since the prior exam as pneumonia/atelectasis has developed in the left midlung. A followup study would be recommended for continued evaluation. Dictated by: Dictated on workstation # [id number]
[2021-01-01 11:23] VITALS: BP 146/64
[2021-01-01 13:49] VITALS: BP 146/64
== END 2021-01-01 13:50 | DRG 871 ==
LOC: EDUNIT# 21:05 → ER 21:07 → 4TH 12-30 01:10
PROVIDERS: ADMIT Family Medicine; ATTEND Family Medicine
PROC: 5A09357 Assistance with Respiratory Ventilation, Less than 24 Consecutive Hours, Continuous Positive Airway Pressure (ICD-10-PCS; principal; 2020-12-31)
DX: A41.9 Sepsis, unspecified organism (principal); J18.9 Pneumonia, unspecified organism; Z68.42 Body mass index [BMI] 45.0-49.9, adult; Z79.4 Long term (current) use of insulin; E78.00 Pure hypercholesterolemia, unspecified; I10 Essential (primary) hypertension; E11.9 Type 2 diabetes mellitus without complications; E66.01 Morbid (severe) obesity due to excess calories; R53.1 Weakness; G89.29 Other chronic pain; M54.9 Dorsalgia, unspecified; Z20.822 Contact with and (suspected) exposure to COVID-19
CPT/HCPCS: 36415; 70450; 71045; 71046; 72125; 80053; 81000; 82962; 83605; 85025; 85027; 85610; 85730; 87040; 87070; 87088; 87205; 87635; 87804; 94640; 94660; 94664; 94760; 96361; 96374; 96375

== ENCOUNTER 2021-01-01 09:49 | Inpatient (IN) | payer MEDICARE ==
[~2021-01-01] VITALS: Ht 177.8 cm; Wt 153.0 kg
[~2021-01-01 09:49] MED LIST changes: +ALLO300T2 PO; +ATOR20TA66 PO; +INSU100I34 SC; +LOSA1TAB20 PO; +LOTE5GEL OD; +METF-398 PO; +MULT-1061 PO
[2021-01-01] MEDS ORDERED: diphenhydrAMINE 25 MG TAB (BENADRYL) PO PRN (10:00)
[2021-01-01] MEDS ORDERED: CALCIUM CARBONATE 500 MG (TUMS) TAB.CHEW PO PRN (10:00)
[2021-01-01] MEDS ORDERED: LOPERAMIDE 2 MG (IMODIUM) TABLET PO PRN (10:00)
[2021-01-01] MEDS ORDERED: FLEET ENEMA ADULT 1 EA BTL PR PRN (10:00)
[2021-01-01] MEDS ORDERED: ONDANSETRON 4 MG (ZOFRAN) ORAL DISSOLVE TAB PO PRN (10:00)
[2021-01-01] MEDS ORDERED: LACTULOSE SYRUP 10GM/15ML (ENULOSE) 30ML UDC PO PRN (10:00)
[2021-01-01] MEDS ORDERED: DOCUSATE SODIUM 100 MG (COLACE) CAP PO PRN (10:00)
[2021-01-01] MEDS ORDERED: guaiFENesin/CODEINE (ROBITUSSIN AC) 10ML UDC PO PRN (10:00)
[2021-01-01] MEDS ORDERED: BISACODYL 10 MG SUPP (DULCOLAX) PR PRN (10:00)
[2021-01-01] MEDS ORDERED: ALPRAZolam 0.25 MG (XANAX) TAB PO PRN (10:00)
[2021-01-01 15:00] VITALS: BP 160/70
--- NOTE | 2021-01-01 15:13 | Physical Therapy Evaluation ---
PT Evaluation-General Medical Diagnosis Admission Date Jan 01, 2021 at 14:09 Medical Diagnosis: PNA, sepsis, dehydration Onset Date: Dec 30, 2020 Therapy Diagnosis Therapy Diagnosis: Impaired functional mobility and strength Precautions Precautions/Isolations: Fall Prevention, Standard Precautions, Pressure Ulcer Weight Bear Status Right Lower Extremity: Right Full Weight Bearing Left Lower Extremity: Left Full Weight Bearing Referral Physician: Tate Reason for Referral: Evaluation/Treatment Medical History Pertinent Medical History: Neuropathy Additional Medical History Prev spinal sx Current History ED from home c/o nonproductive cough, SOA, fever, dizziness with 7-8 falls past couple of days. Reviewed History: Yes Social History Home: Single Level Current Living Status: Spouse Entry Into Home: Level Entry Prior Prior Level of Function SCALE: Activities may be completed with or without assistive devices. 0-Zxyufuzxfc-bfnxssz completes the activity by him/herself with no assistance from a helper. 5-Set-up or Clean-up Assistance-helper sets up or cleans up; patient completes activity. [place] assists only prior to or following the activity. 4-Supervision or Touching Assistance-helper provides verbal cues and/or touching/steadying and/or contact guard assistance as patient completes activity. Assistance may be provided throughout the activity or intermittently. 3-Partial/Moderate Assistance-helper does LESS THAN HALF the effort. [place] lifts, holds or supports trunk or limbs, but provides less than half the effort. 2-Substantial/Maximal Assistance-helper does MORE THAN HALF the effort. [place] lifts or holds trunk or limbs and provides more than half the effort. 5-[place]-nenfrx does ALL the effort. Patient does none of the effort to complete the activity. Or, the assistance of 2 or more helpers is required for the patient to complete the activity. If activity was not attempted, code reason: 7-Patient Refused. 9-Not Applicable-not attempted and the patient did not perform the activity before the current illness, exacerbation or injury. 10-Not Attempted due to Environmental Limitations-(lack of equipment, weather restraints, etc.). 88-Not Attempted due to Medical Conditions or Safety Concerns. Bed Mobility: 6 Transfers (B,C,W/C): 6 Gait: 6 Stairs: 6 Indoor Mobility (Ambulation): Independent Stairs: Independent Prior Device Use: Cane PT Evaluation-Current Subjective Patient consented to therapy. Patient reports no pain overall, and reports he wants to get better so he can help his from her recent spinal surgery 6 weeks prior. Pt/Family Goals Return home to with PLOF Objective Patient Orientation: Person, Place, Time, Normal For Age ROM/Strength ROM Upper Extremities See OT report ROM Lower Extremities WFL for ambulation/transfers Strength Upper Extremities See OT report Strength Lower Extremities (R) WNL grossly (L) Diminished compared to (R) (hip flexion 4-/5, knee extension 4-/5, knee flexion 4-/5, DF 4/5, PF 4-/5) Integumentary/Posture Posture Kyphotic Neuromuscular (Tone, Coordination, Reflexes) grossly intact Sensory Vision: Functional Hearing: Impaired Sensation Right Lower Extremit: Impaired Sensation Left Lower Extremity: Impaired Sensation Lower Extremities Patient reports peripheral neuropathy in feet. Leg sensation in-tact, plantar surface of foot diminished Transfers Roll Left & Right (QC): 4 Sit to Lying (QC): 4 Lying to Sitting/Side of Bed(Q: 4 Sit to Stand (QC): 4 (Patient utilizes forward momentum with transfer.) Chair/Fsd-xr-Viryh Xfer(QC): 4 Toilet Transfer (QC): 4 Car Transfer (QC): 4 CGA x1 utilized. Gait Does the Patient Walk?: Yes Mode of Locomotion: Walk Anticipated Mode of Locomotion: Walk Walk 10 feet (QC): 4 Walk 50 ft with 2 Turns(QC): 4 Walk 150 ft (QC): 4 Walking 10ft/uneven surface-QC: 4 Distance: 200' x2, 150' Gait Assistive Device: FWW Comments/Gait Description Patient walks with slow pace, "melts" into gait without cueing to stand straight up. Requires several rest breaks between ambulation. Wheelchair Training Wheel 50 ft with 2 turns (QC): 9 Wheel 150 ft (QC): 9 Type of Wheelchair: N/A Stairs #of Steps: 1 1 Step (curb) (QC): 4 4 Steps (QC): 88 12 Steps (QC): 88 Walking Assistive Device: Walker CGA x1 utilized. Balance Sitting Static: Good Sitting Dynamic: Good Standing Static: Good Standing Dynamic: Good Picking up an Object (QC): 88 Treatment OT/PT cotreat due to skill of 2 clinicians required which a rehab trainer could not perform in order to coordinate UE/LEs with tasks, to decrease fall risk, and due to pt's limitations in mobility, activity tolerance, and strength. OT focused on UE placement, cues for sequencing and safety, and ADLs, PT focused on LE placement, gross overall movements, functional mobility and transfers, and endurance with ambulation. Assessment/Needs 70 y.o. male,will benefit from skilled PT to address functional strength and mobility to improve current LOF to safely return to home with spouse at maximum LOF. Rehab Potential: Fair PT Short Term Goals Short Term Goals Time Frame: Jan 14, 2021 Roll Left & Right: 4 Sit to lyin Lying to sitting on side of be: 4 Sit to stand: 4 Chair/uvn-zl-bipvs transfer: 4 Toilet transfer: 4 Car transfer: 4 Walk 10 feet: 4 Walk 50 feet with two turns: 4 Walk 150 feet: 4 Walking 10ft on uneven surface: 4 1 step (curb): 4 4 steps: 4 12 steps: 9 Picking up objects: 4 Does pt use a wc or scooter: No Wheel 50ft w/2 turns: 9 Wheel 150 feet: 9 Type: N/A Utilizing SBA x1 PT Senior Back [employer] Developer Goals [facility] Goals PT [facility] Goals Time Frame: Jan 31, 2021 Roll Left & Right (QC): 6 Sit to Lying (QC): 6 Lying-Sitting on Side/Bed(QC): 6 Sit to Stand (QC): 6 Chair/Oin-vu-Nbeop Xfer(QC): 6 Toilet Transfer (QC): 6 Car Transfer (QC): 6 Does the Patient Walk: Yes Walk 10 feet (QC): 6 Walk 50ft with 2 Turns (QC): 6 Walk 150 ft (QC): 6 Walking 10ft on Uneven Surface: 6 1 Step (curb) (QC): 6 4 Steps (QC): 6 12 Steps (QC): 9 Picking up an Object (QC): 6 (Utilizing cane for assistance) Does the Pt use WC or Scooter?: No Wheel 50 feet with 2 turns (QC: 9 Type: N/A Wheel 150 feet: 9 Type: N/A PT Plan Problem List Problem List: Activity Tolerance, Functional Strength, Safety, Balance, Gait, Transfer, Bed Mobility, ROM Treatment/Plan Treatment Plan: Continue Plan of Care Treatment Plan: Bed Mobility, Concurrent Therapy, Education, Functional Activity Rohini, Functional Strength, Group Therapy, Gait, Safety, Therapeutic Exercise, Transfers Treatment Duration: Jan 24, 2021 Frequency: 6 times per week Estimated Hrs Per Day: 1.5 hours per day Patient and/or Family Agrees t: Yes Discharge Recommendations Therapy Discharge Recommendati: Home & Family Time/GCodes Time In: 1335 Time Out: 1515 Total Billed Treatment Time: 90 Total Billed Treatment 1335- 1345 PT Eval, [id number] OT Eval, 7912-2238 Co- Treat with OT 1 visit EVM: 10' FA x 5: 80' SHANNON BARTHOLOMEW PT Jan 01, 2021 15:13
--- NOTE | 2021-01-01 15:14 | Occupational Therapy Eval ---
OT Evaluation-General/PLF Medical Diagnosis Admission Date Jan 01, 2021 at 14:09 Medical Diagnosis: PNA, sepsis, dehydration Onset Date: Dec 30, 2020 Therapy Diagnosis Therapy Diagnosis: weakness, decreased ADL status Precautions Precautions/Isolations: Fall Prevention, Standard Precautions, Pressure Ulcer Referral Physician: Tate Pringle Reason: Evaluation/Treatment Medical History Pertinent Medical History: Neuropathy Additional Medical History Pt states back injury in high school Current History ED from home c/o nonproductive cough,SOA and dizzy. Pt reports having 7-8 falls the last couple days prior to admission, negative for COVID-19. Pt admitted to ARU 01/01/21 for skilled therapies and continued medication management. Social History Home: Single Level Current Living Status: Spouse Entry Into Home: Level Entry ADL-Prior Level of Function SCALE: Activities may be completed with or without assistive devices. 0-Cxptorwysh-kmptqkq completes the activity by him/herself with no assistance fr om a helper. 5-Set-up or Clean-up Assistance-helper sets up or cleans up; patient completes activity. [place] assists only prior to or following the activity. 4-Supervision or Touching Assistance-helper provides verbal cues and/or touching/steadying and/or contact guard assistance as patient completes activity. Assistance may be provided throughout the activity or intermittently. 3-Partial/Moderate Assistance-helper does LESS THAN HALF the effort. [place] lifts, holds or supports trunk or limbs, but provides less than half the effort. 2-Substantial/Maximal Assistance-helper does MORE THAN HALF the effort. [place] lifts or holds trunk or limbs and provides more than half the effort. 2-Hnfpslfkb-lkzreh does ALL the effort. Patient does none of the effort to complete the activity. Or, the assistance of 2 or more helpers is required for the patient to complete the activity. If activity was not attempted, code reason: 7-Patient Refused. 9-Not Applicable-not attempted and the patient did not perform the activity before the current illness, exacerbation or injury. 10-Not Attempted due to Environmental Limitations-(lack of equipment, weather restraints, etc.). 88-Not Attempted due to Medical Conditions or Safety Concerns. ADL PLOF Comments Pt initially reports being independent with all ADLS and functional mobility. He used a cane primarily, but recently has been using an old walker. Upon further discussion, pt reports needing assistance with footwear, and some assist with donning overalls. His LLE is weaker than R and he sometimes needs assistance threading LLE and with pant hike of overalls. He uses his cane to assist him with doffing socks and donning underwear at home, using the handle as a dressing stick. IND with toileting, showering, and oral care. Self Care: Needed Some Help Functional Cognition: Independent DME/Equipment: Bath Chair, Shower DME/Equipment Comments cane, walker. Drive Self: Yes OT Current Status Subjective Pt agreeable to OT evaluation, then OT/PT cotreat. Pt did not verbalize any pain during tx. Mental Status/Objective Patient Orientation: Person, Place, Time, Situation Current Glasses/Contacts: Yes Hearing Aids: No Dentures/Partials: No Hand Dominance: Right Upper Extremity ROM WFL, BUE shoulder flexion to approx 140 degrees Upper Extremity Coordination WFL, pt did require assistance opening toothbrush from plastic (states he uses his pocket knife at home to open things) Upper Extremity Sensation WFL, pt denies tingling/numbness Upper Extremity Strength RUE grossly 4+/5, LUE grossly 3+/5 (pt states L side has been weaker since back injury in high school) ADL-Treatment Eating (QC): 6 (IND) Oral Hygiene (QC): 4 (SBA standing at sink for safety, pt leaning over sink requiring cues to stand up straight.) Shower/Bathe Self (QC): 3 (Assist to wash BLE lower legs/feet and buttocks. Pt able to wash other parts seated on SC) Upper Body Dressing (QC): 3 (Min A with managing shirt down back, pt able to thread BUEs and overhead.) Lower Body Dressing (QC): 3 (Pt able to doff underwear, assist to thread BLEs into underwear, pt able to manage up, assist with managing up completely in the back. Assist to thread LLE into overalls, and assist with managing overalls up.) On/Off Footwear (QC): 1 (Assist donning/doffing gripper socks.) Toileting Hygiene (QC): 3 (Assist with washing buttocks, pt able to manage clothing. Set up assist with urinal.) Other Treatments OT evaluation complete. OT/PT cotreat due to skill of 2 clinicians required which a rn rehabilitation could not perform in order to coordinate UE/LEs with tasks, to decrease fall risk, and due to pt's limitations in mobility, activity tolerance, and strength. OT focused on UE placement, cues for sequencing and safety, and ADLs, PT focused on LE placement, gross overall movements, functional mobility and transfers. Pt completed functional transfers, in/out of car simulation, over uneven surface and up/down 1 step. Pt took a seated rest break, then used FWW to go to room, CGA. Pt sat on SC, doffed clothes, completed shower, then donned clothes. Pt took rest breaks as needed. Pt then stood at sink to complete oral care. Pt sat at w/c for rest break after oral care, then transferred to bed, and supine. Pt required cues for UE placement with each sit <-> stand transfer. Please refer to PT note for QCs for mobility/transfers. Post tx, pt laying in bed, call light in reach and all needs met. Education OT Patient Education: Correct positioning, Energy conservation, Modified ADL techniques, Progress toward Goal/Update tx plan, Purpose of tx/functional activities, Rehab process, Safety issues, Transfer techniques Teaching Recipient: Patient Teaching Methods: Discussion Response to Teaching: Verbalize Understanding OT Short Term Goals Short Term Goals Time Frame: Jan 15, 2021 Shower/bathe self: 4 Upper body dressin Lower body dressin OT Waistband Setter Lockstitch Goals Waistband Setter Lockstitch Goals Time Frame: Jan 30, 2021 Eating (QC): 6 Oral Hygiene (QC): 6 Toileting Hygiene (QC): 6 Shower/Bathe Self (QC): 6 Upper Body Dressing (QC): 6 Lower Body Dressing (QC): 6 On/Off Footwear (QC): 3 Additional Goals: 1-Demonstrate ADL Tasks, 2-Verbalize Understanding, 3- ImproveStrength/Rohini 1=Demonstrate adherence to instructed precautions during ADL tasks. 2=Patient will verbalize/demonstrate understanding of assistive devices/modifications for ADL. 3=Patient will improve strength/tolerance for activity to enable patient to perform ADL's. OT Education/Plan Problem List/Assessment Assessment: Decreased Activ Tolerance, Decreased Safety Aware, Decreased UE Strength, Impaired Funct Balance, Impaired I ADL's, Impaired Self-Care Skills Discharge Recommendations Plan/Recommendations: Continue POC Treatment Plan/Plan of Care Patient would benefit from OT for education, treatment and training to promote independence in ADL's, mobility, safety and/or upper extremity function for ADL's. Plan of Care: ADL Retraining, Functional Mobility, Group Exercise/Act as Ind, UE Funct Exercise/Act Treatment Duration: Jan 30, 2021 Frequency: At least 5 of 7 days/Wk (IRF) Estimated Hrs Per Day: 1.5 hours per day Rehab Potential: Good Time/GCodes Start Time: 13:45 Stop Time: 15:15 Total Time Billed (hr/min): 90 Billed Treatment Time 6931-4505 OT tx, [id number] OT/PT cotreat 1, EVM (10'), FA 2 (35'), ADL 3 (45') MELISSA ARIAS OT Jan 01, 2021 15:14
--- NOTE | 2021-01-01 15:52 | ST Cognitive Linguistic Eval ---
Speech Evaluation-General Medical Diagnosis PNA, sepsis, dehydration Onset Date: Dec 30, 2020 Therapy Diagnosis Therapy Diagnosis: Cognitive-communication Medical History Pertinent Medical History: Neuropathy Reviewed History: Yes Social History Current Living Status: Spouse Speech PLF-Current Status Prior Level of Function Patient lives in the home with his where he was independent with his daily needs. Subjective Patient was pleasant and cooperative with the cognitive assessment. Language Eval: Auditory Comprehends Simple Yes/No Ques: Functional Indent/Objects Multiple Gomez: Functional Ident/Pics in Multiple Gomez: Functional Follows 1-Step Commands: Functional Follows Complex Directions: Functional Follows General Conversations: Functional Language Eval: Verbal Language Completes Spontaneous Greeting: Functional Produces Auto, Serial Info: Functional Imitates Simple Words/Phrases: Functional Word Finding: Functional Requests Basic Needs: Functional States Basic Personal Info: Functional Expresses Complex Ideas: Functional Language Evaluation: Reading Comprehends Single Nouns: Functional Objective Cognitive Domain Attention: WNL Memory: WNL Problem Solving: Functional Executive Functions: WNL Visuospatial Skills: WNL Composite Severity Rating: WNL Clock Drawing Severity Rating: WNL Objective Formal/Standardized Tests [facility] Mental Status ([facility]) Results 28/30, within normal range of function Oral Motor/Speech Production Within Normal Limits Impression Patient is a pleasant 70 y/o man who was admitted to the ARU for strengthening s/p pneumonia. Patient was given the SLUMS at bedside with a score of 28/30 obtained. This score is within the normal range of function for cognitive. Patient does not require further ST services at this time. Speech Patient Assess Expression of Ideas/Wants: Expression (4) Understanding Verbal Content: Understands (4) Brief Interview-Mental Status: Yes Repetition of Three Words: Three (3) Temporal Orientation: Year: Correct (3) Temporal Orientation: Month: Accurate within 5 days(2) Temporal Orientation: Day: Correct (1) Recall : Wear to say "Sock": Yes, no cue required (2) Recall : Color: Yes, no cue required (2) Recall : Bed: Yes,after cueing (1) Memory/Recall Ability: Current season, That he or she is in a hsp/hsp unit Speech-Plan Patient/Family Goals Patient/Family Goals: Patient plans on returning to his home where he lives with his . Treatment Plan Speech Therapy Treatment Plan: Discontinue ST Treatment Duration: Jan 01, 2021 Frequency: 1 time per week Estimated Hrs Per Day: .25 hour per day Rehab Potential: Good Barriers to Learning: None identified Pt/Family Agrees to Plan: Yes Safety Risks/Education Teaching Recipient: Patient Teaching Methods: Discussion Response to Teaching: Verbalize Understanding Education Topics Provided: Safety within his room, communication of wants/needs Time Speech Therapy Time In: 15:15 Speech Therapy Time Out: 15:30 Total Billed Time: 15 Billed Treatment Time 1, RUBI Sprague Jan 01, 2021 15:52
--- NOTE | 2021-01-01 17:55 | PM&R Post Admission Assessment ---
PM&R HP Date of Visit: Jan 01, 2021 Time of Visit: 14:30 History of Present Illness CC: Debility from PNA HPI: This is a 70yoWM clinic patient of Dr Crawford who is admitted to IRF after dx with PNA and placed on broad spectrum abx and O2 on med-surg. Patient uses CPAP every night. No use of O2 at home. He lives alone. No pain reported. BM+. Patient is weak and will need aggressive PT OT to return to live independently. Past Iwcghip-Zbfbag-Ogmjsc Hx Past Med/Social Hx: Reviewed Nursing Past Med/Soc Hx, Reviewed and Corrections made Patient Social History Marrital Status: single Employed/Student: retired Alcohol Use: Denies Use Smoking Status: Never a Smoker 2nd Hand Smoke Exposure: No Recent Hopitalizations: Yes Immunizations Up To Date Date of Influenza Vaccine: Aug 01, 2021 Seasonal Allergies Seasonal Allergies: No Past Medical History Respiratory: Pneumonia, Sleep Apnea Currently Using CPAP: Yes Currently Using BIPAP: No Cardiac: High Cholesterol, Hypertension Reproductive: No Sexually Transmitted Disease: No HIV/AIDS: No Musculoskeletal: Degenerate Disk Disease Endocrine: Diabetes, Non-Insulin dep Loss of Vision: Denies History of Blood Disorders: No Family History Hypertension Prior Level of Function Bed Mobility: 6 Transfers: 6 Gait: 6 Stairs: 6 Indoor Mobility (Ambulation): Independent Stairs: Independent Cane Self Care: Needed Some Help Functional Cognition: Independent Drive Self: Yes Current Level of Fuctioning Roll Left to Right: 4 Sit to Lyin Lying to Sitting/Side of Bed: 4 Sit to Stand: 4 (Patient utilizes forward momentum with transfer.) Chair/Qjk-rm-Jkqcd Xfer: 4 Car Transfer: 4 Does the Patient Walk: Yes Mode of Locomotion: Walk Anticipated Mode of Locomotion: Walk Walk 10 feet: 4 Walk 50 ft with 2 Turns: 4 Walk 150 ft: 4 Walking 10ft on uneven surface: 4 Gait Assistive Device: FWW Wheel 50 ft with 2 turns: 9 Wheel 150 ft: 9 Type of Wheelchair: N/A #of Steps: 1 1 Step (curb): 4 4 Steps: 88 Walking Assistive Device: Walker 12 Steps: 88 Picking up an Object: 88 Eatin (IND) Oral Hygiene: 4 (SBA standing at sink for safety, pt leaning over sink requiring cues to stand up straight.) Shower/Bathe Self: 3 (Assist to wash BLE lower legs/feet and buttocks. Pt able to wash other parts seated on SC) Upper Body Dressin (Min A with managing shirt down back, pt able to thread BUEs and overhead.) Lower Body Dressin (Pt able to doff underwear, assist to thread BLEs into underwear, pt able to manage up, assist with managing up completely in the back. Assist to thread LLE into overalls, and assist with managing overalls up.) On/Off Footwear: 1 (Assist donning/doffing gripper socks.) Toileting Hygiene: 3 (Assist with washing buttocks, pt able to manage clothing. Set up assist with urinal.) PM&R Allergy/Meds/Data Review Allergies Coded Allergies: No Known Drug Allergies (Unverified , 01/02/11) Home Medications Scheduled Allopurinol (Allopurinol), 300 MG PO HS, (Reported) Atorvastatin Calcium (Atorvastatin Calcium), 20 MG PO HS, (Reported) Insulin Glargine,Hum.rec.anlog (Basaglar Kwikpen U-100), 80 UNITS SC HS, (Repor lamar) Losartan/Hydrochlorothiazide (Losartan-Hctz 50-12.5 mg Tab), 1 EA PO HS, (Reported) Loteprednol Etabonate (Lotemax), 1 DROP OD HS, (Reported) Metformin HCl (Metformin HCl), 425 MG PO BID, (Reported) Multivit-Min/FA/Lycopen/Lutein (Centrum Silver Men Tablet), 1 EACH PO DAILY, (Reported) Discontinued Medications Aspirin (Aspirin 81 Mg Chew Tab), 81 MG PO DAILY, (Reported) Discontinued Reason: No Longer Taking Colesevelam Hcl (Welchol), 3 TAB PO BID, (Reported) Discontinued Reason: No Longer Taking Docosahexanoic Acid/Epa (Fish Oil 300 Mg Softgel), 1 CAP PO BID, (Reported) Discontinued Reason: No Longer Taking Hctz/Lisinopril (Lisinopril-Hctz 20-25MG Tab), 1 EACH PO DAILY, (Reported) Discontinued Reason: No Longer Taking Hydrocodone Bit/Acetaminophen (Hydrocet 5-500 Capsule), 1 EACH PO PRN, (Reported) Discontinued Reason: No Longer Taking Multivitamins (Multiple Vitamin), 1 TAB PO, (Reported) Discontinued Reason: Prescription changed Nystatin (Mycostatin), 30 GM TP PRN, (Reported) Discontinued Reason: No Longer Taking Rosiglitazone/Metformin Hcl (Avandamet 2 Mg-500 Mg Tablet), 1 EACH PO BID, (Reported) Discontinued Reason: No Longer Taking Sertraline Hcl (Sertraline Hcl), 100 MG PO, (Reported) Discontinued Reason: No Longer Taking Current Medications Current Medications Reviewed Review of Systems Constitutional: see HPI, malaise, weakness Respiratory: dyspnea on exertion Physical Exam Physical Exam Vital Signs Vital Signs - First Documented 01/01/21 14:18 O2 Delivery Room Air Capillary Refill : Height, Weight, BMI Height: '" Weight: lbs. oz. kg; 48.39 BMI Method:Stated General Appearance: No Apparent Distress, WD/WN, Chronically ill, Obese Eyes: Bilateral Eye Normal Inspection, Bilateral Eye PERRL HEENT: PERRL/EOMI, Normal ENT Inspection, Pharynx Normal Neck: Full Range of Motion, Normal Inspection, Non Tender, Supple, Carotid Bruit Respiratory: Chest Non Tender, Lungs Clear, No Accessory Muscle Use, No Respiratory Distress, Decreased Breath Sounds Cardiovascular: Regular Rate, Rhythm, No Edema, No Gallop, No JVD, No Murmur, Normal Peripheral Pulses Gastrointestinal: Normal Bowel Sounds, No Organomegaly, No Pulsatile Mass, Non Tender, Soft Back: Normal Inspection, No CVA Tenderness, No Vertebral Tenderness Extremity: Normal Capillary Refill, Normal Inspection, Normal Range of Motion, Non Tender, No Calf Tenderness, No Pedal Edema Neurologic/Psychiatric: Alert, Oriented x3, No Motor/Sensory Deficits, Normal Mood/Affect, Abnormal Gait, Motor Weakness (generalized) Skin: Normal Color, Warm/Dry Lymphatic: No Adenopathy PM&R Medical Assessment & Plan REHAB/MEDICAL ASSESSMENT AND PLAN: REHAB IMPAIRMENT GROUP: Debility ETIOLOGIC DIAGNOSIS: Debility The comorbidities that impact the patients function and/or functional outcome by: advanced age, obesity, ROSS on CPAP, current PNA REHAB PLAN: The patient is being admitted to our comprehensive inpatient rehabilitation facility and can tolerate the intensity of service consisting of at least: 180 minutes of therapy a day, 5 out of 7 days a week Rehab treatment will consist of: PT OT will focus on regaining function and strength in order to return to live independently The patient/family has a good understanding of our discharge process and will benefit from an interdisciplinary inpatient rehabilitation program. The patient has potential to make improvement and is in need of at least two of the following multidisciplinary therapies including but not limited to physical, occupational, speech, and prosthetics and orthotics. Additionally the patient will need services from respiratory, nutritional services, wound care, psychology, etc. (Customize this to each patient). Given the patients complex condition and risk of further medical complications, rehabilitation services cannot be safely or effectively provided at a lower level of care such as a long-term facility. BARRIERS TO DISCHARGE: Obesity with advanced age ESTIMATED LOS: 7 days DISPOSITION: Home RELEVANT CHANGES SINCE PREADMISSION SCREENING: I have compared the patients medical and functional status at the time of the preadmission screening and there are: no changes PROGNOSIS: Good REHABILITATION GOALS: 1. PT OT will focus on regaining function and strength in order to return to live independently All the above goals were reviewed with the patient and he/she is in agreement. By signing this document, I acknowledge that I have personally performed a full physical examination on this patient within 24 hours of admission to this inpatient rehabilitation facility and have determined the patient to be able to tolerate the above course of treatment at an intensive level for a reasonable period of time. I will be completing a detailed individualized Plan of Care for this patient by day #4 of the patients stay based upon the Preadmission Screen, the Post-Admission Evaluation, and the therapy evaluations. Admission Dx/Comorbidities: (1) Debility ICD Codes: R53.81 - Other malaise (2) Sepsis Status: Acute ICD Codes: A41.9 - Sepsis, unspecified organism (3) Pneumonia Status: Acute ICD Codes: J18.9 - Pneumonia, unspecified organism (4) Dehydration ICD Codes: E86.0 - Dehydration (5) History of falling Status: Acute ICD Codes: Z91.81 - History of falling Assessment/Plan Assessment and Plan Assess & Plan/Chief Complaint Assessment: Debility PNA on abx ROSS on CPAP HTN DM Falls Plan: Abx HLIVF Monitor closely IRF protocol JEANIE GALVIN DO Jan 01, 2021 17:55
[2021-01-01] MEDS ORDERED: CATHETER FLUSH 10 ML SYR IV PRN (18:15)
[2021-01-01] MEDS ORDERED: ONDANSETRON 4 MG/2 ML (SDV) Z0FRAN IV PRN (18:15)
[2021-01-01] MEDS ORDERED: ACETAMINOPHEN 500 MG TAB (TYLENOL) PO PRN (18:15)
[2021-01-01 18:21] VITALS: BP 160/70
[2021-01-01] MEDS ORDERED: RT-ALBUTEROL INHALER HFA (VENTOLIN HFA) 18 GM IH PRN (18:30)
[2021-01-01] MEDS: metFORMIN 850 MG (GLUCOPHAGE) TAB PO SCH (18:56)
[2021-01-01] MEDS: PIPERACILLIN/TAZOBACTAM (BULK) 4.5 GM in NS (IVPB) 100 ML IV SCH (18:57)
[2021-01-01] MEDS ORDERED: NON-FORMULARY MEDICATION 1 EA EA (Loteprednol Etabonate (Lotemax) 1 DROP) OD SCH (21:00)
[2021-01-01] MEDS: inSUlin ASPART (NovoLOG) 1 UNIT/0.01 ML (CHARGE PER UNIT) SC SCH (21:26)
[2021-01-01] MEDS: SENNA W/DOCUSATE (SENOKOT S) TABLET PO SCH (21:30)
[2021-01-01] MEDS: DOCUSATE SODIUM 100 MG (COLACE) CAP PO SCH (21:30)
[2021-01-01] MEDS: polyethylene glycoL POWDER 17 GM (MIRALAX) PACK PO SCH (21:30)
[2021-01-01] MEDS: MELATONIN 3 MG TABLET PO PRN (21:34)
[2021-01-01] MEDS: ALLOPURINOL 300 MG (ZYLOPRIM) TAB PO SCH (21:34)
[2021-01-01] MEDS: HYDROCHLOROTHIAZIDE 12.5 MG (HCTZ) CAP PO SCH (21:34)
[2021-01-01] MEDS: LOSARTAN 50 MG (COZAAR) TAB PO SCH (21:34)
[2021-01-02] MEDS: PIPERACILLIN/TAZOBACTAM (BULK) 4.5 GM in NS (IVPB) 100 ML IV SCH ×2 (02:48→10:16)
[2021-01-02] MEDS: inSUlin ASPART (NovoLOG) 1 UNIT/0.01 ML (CHARGE PER UNIT) SC SCH ×4 (04:56→20:52)
[2021-01-02 05:39] LABS: BASOPHILS # (AUTO) 0.1 10^3/uL (0.0-0.1); BASOPHILS % (AUTO) 1 % (0-10); EOSINOPHILS # (AUTO) 0.4 10^3/uL (0.0-0.3); EOSINOPHILS % (AUTO) 6 % (0-10); HEMATOCRIT 38 % (40-54); HEMOGLOBIN 12.7 g/dL (13.3-17.7); LYMPHOCYTES # (AUTO) 1.2 10^3/uL (1.0-4.0); LYMPHOCYTES % (AUTO) 19 % (12-44); MEAN CORPUSCULAR HEMOGLOBIN 30 pg (25-34); MEAN CORPUSCULAR HGB CONC 33 g/dL (32-36); MEAN CORPUSCULAR VOLUME 90 fL (80-99); MONOCYTES # (AUTO) 0.6 10^3/uL (0.0-1.0); MONOCYTES % (AUTO) 10 % (0-12); NEUTROPHILS # (AUTO) 4.2 10^3/uL (1.8-7.8); NEUTROPHILS % (AUTO) 64 % (42-75); PLATELET COUNT 246 10^3/uL (130-400); WHITE BLOOD COUNT 6.6 10^3/uL (4.3-11.0)
[2021-01-02 05:51] LABS: ALBUMIN 3.5 GM/DL (3.2-4.5); CHLORIDE 104 MMOL/L (98-107); POTASSIUM 3.6 MMOL/L (3.6-5.0); SODIUM 138 MMOL/L (135-145)
[2021-01-02 05:53] LABS: CALCIUM 8.9 MG/DL (8.5-10.1)
[2021-01-02 05:54] LABS: GLUCOSE 99 MG/DL (70-105); TOTAL PROTEIN 6.8 GM/DL (6.4-8.2)
[2021-01-02 05:55] LABS: CARBON DIOXIDE 22 MMOL/L (21-32)
[2021-01-02 05:56] LABS: BILIRUBIN,TOTAL 0.9 MG/DL (0.1-1.0)
[2021-01-02 05:57] LABS: ALKALINE PHOSPHATASE 68 U/L (40-136); CREATININE SERUM 1.17 MG/DL (0.60-1.30); GFR ESTIMATED > 60
[2021-01-02 05:58] LABS: BUN/CREATININE RATIO 15
[2021-01-02 06:00] VITALS: BP 147/67
[2021-01-02 06:00] LABS: ALANINE AMINOTRANSFERASE 41 U/L (0-55)
--- NOTE | 2021-01-02 06:27 | PM&R Progress Note ---
Subjective HPI/CC On Admission Date Seen by Provider: Jan 02, 2021 Time Seen by Provider: 13:00 Subjective/Events-last exam 01/02/21: Patient seems upset to be here Already asking "how am I doing" of which I told him that he just arrived and we are assessing him at bedside who knows me from 2 weeks ago back surgery with Dr Branch Got up to go to bathroom on his own with his to help him and RN explained he needs to use call light IV abx will be transitioned to PO abx at his request Very difficult to manage his needs Review of Systems General: Fatigue Pulmonary: Dyspnea Objective Exam Vital Signs Vital Signs Date Time Temp Pulse Resp B/P (MAP) Pulse Ox O2 Delivery O2 Flow Rate FiO2 01/02/21 16:00 36.0 85 16 160/88 (112) 96 01/02/21 08:00 Room Air 01/01/21 18:21 21 Capillary Refill : General Appearance: No Apparent Distress, WD/WN, Chronically ill, Obese HEENT: PERRL/EOMI, Normal ENT Inspection, Pharynx Normal Neck: Full Range of Motion, Normal Inspection, Non Tender, Supple, Carotid Br uit Respiratory: Chest Non Tender, Lungs Clear, No Accessory Muscle Use, No Re spiratory Distress, Decreased Breath Sounds Cardiovascular: Regular Rate, Rhythm, No Edema, No Gallop, No JVD, No Murmur, Normal Peripheral Pulses Gastrointestinal: Normal Bowel Sounds, No Organomegaly, No Pulsatile Mass, Non Tender, Soft Back: Normal Inspection, No CVA Tenderness, No Vertebral Tenderness Extremity: Normal Capillary Refill, Normal Inspection, Normal Range of Motion, Non Tender, No Calf Tenderness, No Pedal Edema Neurologic/Psychiatric: Alert, Oriented x3, No Motor/Sensory Deficits, Normal Mood/Affect, Abnormal Gait, Motor Weakness (generalized) Skin: Normal Color, Warm/Dry Lymphatic: No Adenopathy Results/Procedures Lab Laboratory Tests 01/02/21 05:09 Patient resulted labs reviewed. FIM Transfers Therapy Code Descriptions/Definitions Functional [place] Measure: 0=Not Assessed/NA 4=Minimal Assistance 1=Total Assistance 5=Supervision or Setup 2=Maximal Assistance 6=Modified [place] 3=Moderate Assistance 7=Complete IndependenceSCALE: Activities may be completed with or without assistive devices. 3-Qosxxdqgef-hwmqtoc completes the activity by him/herself with no assistance from a helper. 5-Set-up or Clean-up Assistance-helper sets up or cleans up; patient completes activity. [place] assists only prior to or following the activity. 4-Supervision or Touching Assistance-helper provides verbal cues and/or touching/steadying and/or contact guard assistance as patient completes activity. Assistance may be provided throughout the activity or intermittently. 3-Partial/Moderate Assistance-helper does LESS THAN HALF the effort. [place] lifts, holds or supports trunk or limbs, but provides less than half the effort. 2-Substantial/Maximal Assistance-helper does MORE THAN HALF the effort. [place] lifts or holds trunk or limbs and provides more than half the effort. 5-Fkewrpwkj-nrfksm does ALL the effort. Patient does none of the effort to complete the activity. Or, the assistance of 2 or more helpers is required for the patient to complete the activity. If activity was not attempted, code reason: 7-Patient Refused. 9-Not Applicable-not attempted and the patient did not perform the activity before the current illness, exacerbation or injury. 10-Not Attempted due to Environmental Limitations-(lack of equipment, weather restraints, etc.). 88-Not Attempted due to Medical Conditions or Safety Concerns. Roll Left to Right (QC): 4 Sit to Lying (QC): 4 Sit to Stand (QC): 4 (Patient utilizes forward momentum with transfer.) Chair/Cuh-mw-Gdptm Xfer(QC): 4 Car Transfer (QC): 4 Gait Training Does the Patient Walk?: Yes Walk 10 feet (QC): 4 Walk 50 ft with 2 Turns(QC): 4 Walk 150 ft (QC): 4 Walking 10ft/uneven surface-QC: 4 Gait Assistive Device: FWW Wheelchair Training Wheel 50 ft with 2 turns (QC): 9 Wheel 150 ft (QC): 9 Type of Wheelchair: N/A Stair Training #of Steps: 1 1 Step (curb) (QC): 4 4 Steps (QC): 88 12 Steps (QC): 88 Balance Picking up an Object (QC): 88 ADL-Treatment Eating (QC): 6 (IND) Oral Hygiene (QC): 4 (SBA standing at sink for safety, pt leaning over sink requiring cues to stand up straight.) Shower/Bathe Self (QC): 3 (Assist to wash BLE lower legs/feet and buttocks. Pt able to wash other parts seated on SC) Upper Body Dressing (QC): 3 (Min A with managing shirt down back, pt able to thread BUEs and overhead.) Lower Body Dressing (QC): 3 (Pt able to doff underwear, assist to thread BLEs into underwear, pt able to manage up, assist with managing up completely in the back. Assist to thread LLE into overalls, and assist with managing overalls up.) On/Off Footwear (QC): 1 (Assist donning/doffing gripper socks.) Toileting Hygiene (QC): 3 (Assist with washing buttocks, pt able to manage clothing. Set up assist with urinal.) Assessment/Plan Assessment and Plan Assess & Plan/Chief Complaint Assessment: Debility PNA on abx ROSS on CPAP HTN DM Falls Plan: Abx HLIVF Monitor closely IRF protocol 01/02/21: Supportive care Abx change to PO (1) Debility (2) Sepsis Status: Acute (3) Pneumonia Status: Acute (4) Dehydration (5) History of falling Status: Acute JEANIE GALVIN DO Jan 02, 2021 06:27
--- NOTE | 2021-01-02 06:27 | Individualized Plan of Care ---
Individualized Plan of Care Rehab Nursing IPOC Order Admission Date Jan 01, 2021 at 14:09 Current Orders Orders Admission Order(Inpt,Obs,Sdc) (01/01/21 09:52) Agency Appointments Supervisor-Inpt Rehab Con (01/01/21 09:52) Rehab Nursing Orders-Ipoc (01/01/21 09:52) Physical Therapy Rehab Orders (01/01/21 09:52) Occupational Therapy Rehab Ord (01/01/21 09:52) Speech Therapy Rehab Orders (01/01/21 09:52) Cbc With Automated Diff (01/02/21 06:00) Comprehensive Metabolic Panel (01/02/21 06:00) Intake & Output 06,14,22 (01/01/21 09:52) Precautions (Aru) (01/01/21 09:52) Weekly Weight WEEK (01/01/21 09:52) Rehab-Intensity Of Therapy (01/01/21 09:52) Initiate Admission Nursing Pro .admission (01/01/21 09:52) Alprazolam Tablet (Xanax Tablet) (01/01/21 10:00) Calcium Carbonate Chew Tablet (Antacid C (01/01/21 10:00) Diphenhydramine Tablet (Benadryl Tablet) (01/01/21 10:00) Docusate Sodium Capsule (Colace Capsule) (01/01/21 21:00) Docusate Sodium Capsule (Colace Capsule) (01/01/21 10:00) Bisacodyl Suppository (Dulcolax Supposit (01/01/21 10:00) Lactulose Oral Solution (Enulose Oral So (01/01/21 10:00) Na Phos/Na Biphos Enema (Fleet Enema Ricardo (01/01/21 10:00) Guaifenesin/Codeine Syrup (Robitussin Ac (01/01/21 10:00) Loperamide Tablet (Imodium Tablet) (01/01/21 10:00) Melatonin Tablet (Melatonin Tablet) (01/01/21 10:00) Polyethylene Glycol Powder Pkt (Miralax (01/01/21 21:00) Ondansetron Oral Dissolve Tab (Zofran (01/01/21 10:00) Senna S Tablet (Senokot S Tablet) (01/01/21 21:00) Initiate Admission Nursing Pro .admission (01/01/21 09:52) Admission Arrival Bed Request (01/01/21 13:55) Patient Visit (01/01/21 ) Pt Eval Moderate Complexity (01/01/21 ) Functional Activities, Ea 15 (01/01/21 ) Patient Visit (01/01/21 ) Speech Sound Lang Comp (01/01/21 ) Code/Resuscitation (01/01/21 18:10) Sequential Compression Device .admit (01/01/21 18:10) Cho 60g/M 3snack (16-2000 Marcellus) (01/01/21 Dinner) (Nf) Loteprednol Etabonate (Lotemax) (01/01/21 21:00) Acetaminophen Tablet (Tylenol Tablet) (01/01/21 18:15) Albuterol Inhaler (Ventolin Hfa) (01/01/21 21:00) Allopurinol Tablet (Zyloprim Tablet) (01/01/21 21:00) Atorvastatin Tablet (Lipitor Tablet) (01/01/21 21:00) Hydrochlorothiazide Cap/Tablet (Hctz Cap (01/01/21 21:00) Losartan Tablet (Cozaar Tablet) (01/01/21 21:00) Ondansetron Injection (Zofran Injectio (01/01/21 18:15) Piperacillin/Tazobactam (Bulk) (Zosyn In (01/01/21 18:15) Sodium Chloride Flush (Catheter Flush Sy (01/01/21 18:15) Insulin Aspart (Novolog) (Novolog (Charg (01/01/21 21:00) Insulin Determir (Per Unit) (Levemir (Pe (01/01/21 21:00) Metformin Tablet (Glucophage Tablet) (01/01/21 18:00) Mat Initiate Protocol (01/01/21 18:27) Albuterol Inhaler (Ventolin Hfa) (01/01/21 18:30) Incentive Spirometry Initial (01/01/21 18:27) Incentive Spirometry (Nursing) Q2H (01/01/21 18:27) Insulin Determir (Per Unit) (Levemir (Pe (01/02/21 21:00) Patient Visit (01/02/21 ) Exercise Therap, Ea 15 Min (01/02/21 ) Gait Training, Ea 15 Min (01/02/21 ) Functional Activities, Ea 15 (01/02/21 ) Cefdinir Capsule (Omnicef Capsule) (01/02/21 21:00) Patient Visit (01/02/21 ) Exercise Therap, Ea 15 Min (01/02/21 ) Rehab Nursing Orders: Ongoing Assess. of Cognitive Status, Ongoing Assess. of Function Status, Bladder Management, Bladder Scan, Bladder Training, Bowel Management, Bowel Training, Disease Management & Educaiton, DVT Prophylaxis, Fall Prevention, Fluid/Electrolyte/Nutrition Mgmt, Infection Prevention, Medication Management & Education, Management of Risks & Complications, Management of Skin Intergrity, Nutrition Management, Pain Management, Patient/Family Support, Safety Management Intensity of Therapy to be met Patient to be seen: Min.3h per day/5 of 7d PT IPOC Problem List: Activity Tolerance, Functional Strength, Safety, Balance, Gait, Transfer, Bed Mobility, ROM Treatment Plan: Continue Plan of Care Bed Mobility, Concurrent Therapy, Education, Functional Activity Rohini, Functional Strength, Group Therapy, Gait, Safety, Therapeutic Exercise, Transfer s Treatment Duration: Jan 24, 2021 Frequency: 6 times per week Estimated Hrs Per Day: 1.5 hours per day OT IPOC Problems: Decreased Activ Tolerance, Decreased Safety Aware, Decreased UE Strength, Impaired Funct Balance, Impaired I ADL's, Impaired Self-Care Skills OT Treatment, Training and Edu: Yes Plan of Care: ADL Retraining, Functional Mobility, Group Exercise/Act as Ind, UE Funct Exercise/Act Treatment Duration: Jan 30, 2021 Frequency: At least 5 of 7 days/Wk (IRF) Estimated Hrs Per Day: 1.[address] IPOC Speech Therapy Treatment Plan: Discontinue ST Treatment Duration: Jan 01, 2021 Frequency: 1 time per week Estimated Hrs Per Day: .25 hour per day Agency Appointments Supervisor/Case Mgmt Agency Appointments Supervisor/Case Managemen: Discharge Planning Dietitian/Product Marketing Programs Manager Dietitian/Product Marketing Programs Manager to monitor nutritional status and make changes and/or recommendations as needed and work with speech pathology on dietary upgrades as the occur. Physician IPOC Medical Issues being managed closely and that require the 24 hour availability of a physician: Recent PNA and ROSS hx will place him at high risk for decompensation Medical Issues: Bowel/Bladder Function, DVT Prophylaxis, Falls Precautions, Fluid/Electrolyte/Nutrition Balance, Infection Protection, Pain Management Brief Synthesis of Preadmission Screen, Post-Admission Evaluation, and Therapy Evaluations: PT OT will focus on regaining ambulatory skills along with use of AD and be able to return to independent living Medical Prognosis: Good Anticipated Length of Stay: 6 days JEANIE GALVIN DO Jan 02, 2021 06:27
[2021-01-02] MEDS: RT-ALBUTEROL INHALER HFA (VENTOLIN HFA) 18 GM IH SCH ×2 (08:21→18:23)
--- NOTE | 2021-01-02 08:23 | Occupational Ther Daily Note ---
OT Current Status-Daily Note Subjective Pt seated upright in w/c, agreeable to OT Tx. Mental Status/Objective Patient Orientation: Person, Place, Time, Situation ADL-Treatment Therapy Code Descriptions/Definitions Functional [place] Measure: 0=Not Assessed/NA 4=Minimal Assistance 1=Total Assistance 5=Supervision or Setup 2=Maximal Assistance 6=Modified [place] 3=Moderate Assistance 7=Complete IndependenceSCALE: Activities may be completed with or without assistive devices. 3-Wlglhstttm-snqwkew completes the activity by him/herself with no assistance from a helper. 5-Set-up or Clean-up Assistance-helper sets up or cleans up; patient completes activity. [place] assists only prior to or following the activity. 4-Supervision or Touching Assistance-helper provides verbal cues and/or touching/steadying and/or contact guard assistance as patient completes activity. Assistance may be provided throughout the activity or intermittently. 3-Partial/Moderate Assistance-helper does LESS THAN HALF the effort. [place] lifts, holds or supports trunk or limbs, but provides less than half the effort. 2-Substantial/Maximal Assistance-helper does MORE THAN HALF the effort. [place] lifts or holds trunk or limbs and provides more than half the effort. 6-Fxglvwmen-berwyv does ALL the effort. Patient does none of the effort to complete the activity. Or, the assistance of 2 or more helpers is required for the patient to complete the activity. If activity was not attempted, code reason: 7-Patient Refused. 9-Not Applicable-not attempted and the patient did not perform the activity before the current illness, exacerbation or injury. 10-Not Attempted due to Environmental Limitations-(lack of equipment, weather restraints, etc.). 88-Not Attempted due to Medical Conditions or Safety Concerns. On/Off Footwear: 2 (Max A overall to don shoes and socks after education of AE) Toileting Hygiene (QC): 4 (CGA for clothing management.) Toilet Transfer (QC): 4 (CGA on/off toilet.) Other Treatment Pt seated up in w/c, agreeable to OT tx. Pt declined completing ADLs as he is already dressed and has already completed oral care. He agreed to going to the therapy gym. Pt used FWW to ambulate to therapy gym, CGA. In order to increase BUE strength and activity tolerance, pt completed arm bike, min resistance x15 mins. Pt did not require a rest break during task, but required one post. OT then educated pt on AE to assist pt with completing footwear. Pt able to use manager inpatient to doff socks, then mod A with sock aide to don socks. With pt's permission, OT switched pt's shoelaces out for elastic laces. Pt used FWW to return to his room, CGA. Pt then donned shoes with max A (slip on), using long handled shoe horn and manager inpatient. Pt requests to use restroom, uses FWW to transfer into bathroom, CGA, and onto toilet. Pt completed toileting, then uses FWW to stand at sink to wash hands, SBA. Pt returned to w/c, post tx, seated in w/c. PT present for therapy, all needs met. Education OT Patient Education: Correct positioning, Energy conservation, Exercise program, Modified ADL techniques, Progress toward Goal/Update tx plan, Purpose of tx/functional activities, Rehab process Teaching Recipient: Patient Teaching Methods: Discussion Response to Teaching: Verbalize Understanding OT Short Term Goals Short Term Goals Time Frame: Jan 15, 2021 Shower/bathe self: 4 Upper body dressin Lower body dressin OT Assisted Goals Histology Specialist Goals Time Frame: Jan 30, 2021 Eating (QC): 6 Oral Hygiene (QC): 6 Toileting Hygiene (QC): 6 Shower/Bathe Self (QC): 6 Upper Body Dressing (QC): 6 Lower Body Dressing (QC): 6 On/Off Footwear (QC): 3 Additional Goals: 1-Demonstrate ADL Tasks, 2-Verbalize Understanding, 3- ImproveStrength/Rohini 1=Demonstrate adherence to instructed precautions during ADL tasks. 2=Patient will verbalize/demonstrate understanding of assistive devices/modifications for ADL. 3=Patient will improve strength/tolerance for activity to enable patient to perform ADL's. OT Education/Plan Problem List/Assessment Assessment: Decreased Activ Tolerance, Decreased UE Strength, Impaired Funct Balance, Impaired I ADL's, Impaired Self-Care Skills Discharge Recommendations Plan/Recommendations: Continue POC Treatment Plan/Plan of Care Patient would benefit from OT for education, treatment and training to promote independence in ADL's, mobility, safety and/or upper extremity function for ADL's. Plan of Care: ADL Retraining, Functional Mobility, Group Exercise/Act as Ind, UE Funct Exercise/Act Treatment Duration: Jan 30, 2021 Frequency: At least 5 of 7 days/Wk (IRF) Estimated Hrs Per Day: 1.5 hours per day Rehab Potential: Good Time/GCodes Start Time: 08:00 Stop Time: 09:00 Total Time Billed (hr/min): 60 Billed Treatment Time 1, ADL 2 (35'), EX (15'), FA (10') MELISSA ARIAS OT Jan 02, 2021 08:23
[2021-01-02] MEDS: DOCUSATE SODIUM 100 MG (COLACE) CAP PO SCH ×2 (08:41→20:53)
[2021-01-02] MEDS: polyethylene glycoL POWDER 17 GM (MIRALAX) PACK PO SCH ×2 (08:41→20:53)
[2021-01-02] MEDS: metFORMIN 850 MG (GLUCOPHAGE) TAB PO SCH ×2 (08:41→17:25)
[2021-01-02] MEDS: SENNA W/DOCUSATE (SENOKOT S) TABLET PO SCH ×2 (08:42→20:53)
--- NOTE | 2021-01-02 10:01 | Physical Therapy Daily Note ---
PT Daily Note-Current Subjective Pt up in bathroom upon arrival to room, OT present. Agreeable to PT treatment at this time. Appearance Pt up in [facility] in room following session, call light, tray and phone within reach. All needs met at this time. Mental Status Patient Orientation: Person, Place, Time, Situation Transfers SCALE: Activities may be completed with or without assistive devices. 4-Ogyzoomord-trwqfrx completes the activity by him/herself with no assistance from a helper. 5-Set-up or Clean-up Assistance-helper sets up or cleans up; patient completes activity. [place] assists only prior to or following the activity. 4-Supervision or Touching Assistance-helper provides verbal cues and/or touching/steadying and/or contact guard assistance as patient completes activity. Assistance may be provided throughout the activity or intermittently. 3-Partial/Moderate Assistance-helper does LESS THAN HALF the effort. [place] lifts, holds or supports trunk or limbs, but provides less than half the effort. 2-Substantial/Maximal Assistance-helper does MORE THAN HALF the effort. [place] lifts or holds trunk or limbs and provides more than half the effort. 1-Rlkcotmfa-nydpmx does ALL the effort. Patient does none of the effort to complete the activity. Or, the assistance of 2 or more helpers is required for the patient to complete the activity. If activity was not attempted, code reason: 7-Patient Refused. 9-Not Applicable-not attempted and the patient did not perform the activity before the current illness, exacerbation or injury. 10-Not Attempted due to Environmental Limitations-(lack of equipment, weather restraints, etc.). 88-Not Attempted due to Medical Conditions or Safety Concerns. Sit to Stand (QC): 5 Chair/Trf-eh-[place] Xfer(QC): 5 Weight Bearing Right Lower Extremity: Right Full Weight Bearing Left Lower Extremity: Left Full Weight Bearing Gait Training Distance: 3 x 150' Walk 10 feet (QC): 4 Walk 50 ft with 2 Turns(QC): 4 Walk 150 ft (QC): 4 Gait Assistive Device: FWW Pt ambulates with short, shuffling steps, requires occasional cueing to prevent walker from getting too far ahead of him. Exercises Seated Therapy Exercises: Ankle pumps, Long arc quads, Hamstring Curls Seated Reps: 15 NuStep Minutes: 15 NuStep Workload: 4 Assessment Current Status: Good Progress Pt with occasional rest breaks due to fatigue, required 2 rest breaks on NuStep. He would benefit from increased endurance activities. Pt tolerated above well, no pain noted. PT Short Term Goals Short Term Goals Time Frame: Jan 14, 2021 Roll Left & Right: 4 Sit to lyin Lying to sitting on side of be: 4 Sit to stand: 4 Chair/rym-um-cjufo transfer: 4 Toilet transfer: 4 Car transfer: 4 Walk 10 feet: 4 Walk 50 feet with two turns: 4 Walk 150 feet: 4 Walking 10ft on uneven surface: 4 1 step (curb): 4 4 steps: 4 12 steps: 9 Picking up objects: 4 Does pt use a wc or scooter: No Wheel 50ft w/2 turns: 9 Wheel 150 feet: 9 Type: N/A PT Sheet Catcher Goals Jail Goals PT Sheet Catcher Goals Time Frame: Jan 31, 2021 Roll Left & Right (QC): 6 Sit to Lying (QC): 6 Lying-Sitting on Side/Bed(QC): 6 Sit to Stand (QC): 6 Chair/Pts-gd-Iwajw Xfer(QC): 6 Toilet Transfer (QC): 6 Car Transfer (QC): 6 Does the Patient Walk: Yes Walk 10 feet (QC): 6 Walk 50ft with 2 Turns (QC): 6 Walk 150 ft (QC): 6 Walking 10ft on Uneven Surface: 6 1 Step (curb) (QC): 6 4 Steps (QC): 6 12 Steps (QC): 9 Picking up an Object (QC): 6 (Utilizing cane for assistance) Does the Pt use WC or Scooter?: No Wheel 50 feet with 2 turns (QC: 9 Type: N/A Wheel 150 feet: 9 Type: N/A PT Plan Problem List Problem List: Activity Tolerance, Functional Strength, Safety, Balance, Gait, Transfer, Bed Mobility, ROM Treatment/Plan Treatment Plan: Continue Plan of Care Treatment Plan: Bed Mobility, Concurrent Therapy, Education, Functional Activity Rohini, Functional Strength, Group Therapy, Gait, Safety, Therapeutic Exercise, Transfers Treatment Duration: Jan 24, 2021 Frequency: 6 times per week Estimated Hrs Per Day: 1.5 hours per day Patient and/or Family Agrees t: Yes Time/GCodes Time In: 900 Time Out: 1000 Total Billed Treatment Time: 60 Total Billed Treatment 1 visit EX x 2 (30') FA ( 10') GT (20') SURESH GIBSON PT Jan 02, 2021 10:01
--- NOTE | 2021-01-02 11:11 | Occupational Ther Daily Note ---
OT Current Status-Daily Note Subjective Pt seated up in w/c, agreeable to OT Tx. Mental Status/Objective Attachments: IV ADL-Treatment Therapy Code Descriptions/Definitions Functional [place] Measure: 0=Not Assessed/NA 4=Minimal Assistance 1=Total Assistance 5=Supervision or Setup 2=Maximal Assistance 6=Modified [place] 3=Moderate Assistance 7=Complete IndependenceSCALE: Activities may be completed with or without assistive devices. 8-Kaodmwhlck-ytmjlxf completes the activity by him/herself with no assistance from a helper. 5-Set-up or Clean-up Assistance-helper sets up or cleans up; patient completes activity. [place] assists only prior to or following the activity. 4-Supervision or Touching Assistance-helper provides verbal cues and/or touching/steadying and/or contact guard assistance as patient completes activity. Assistance may be provided throughout the activity or intermittently. 3-Partial/Moderate Assistance-helper does LESS THAN HALF the effort. [place] lifts, holds or supports trunk or limbs, but provides less than half the effort. 2-Substantial/Maximal Assistance-helper does MORE THAN HALF the effort. [place] lifts or holds trunk or limbs and provides more than half the effort. 7-Zdrewzebv-dvbulj does ALL the effort. Patient does none of the effort to complete the activity. Or, the assistance of 2 or more helpers is required for the patient to complete the activity. If activity was not attempted, code reason: 7-Patient Refused. 9-Not Applicable-not attempted and the patient did not perform the activity before the current illness, exacerbation or injury. 10-Not Attempted due to Environmental Limitations-(lack of equipment, weather restraints, etc.). 88-Not Attempted due to Medical Conditions or Safety Concerns. Other Treatment Pt seated in w/c, agreeable to OT Tx wtih focus on increasing BUE strength and activity tolerance. OT educated pt on moderate resistance theraband exercises, providing pt with printed HEP. Pt completed x15 reps of the following, with min verbal cues: shoulder flexion, elbow flexion, elbow extension, external rotation and horizontal abduction. Pt took rest breaks between exercises as needed. OT instructed pt to complete 2-3 times a day, increasing reps as tolerated, he verbalized understanding. Post tx, pt seated in recliner, call light in reach and all needs met. Education OT Patient Education: Correct positioning, Energy conservation, Exercise program, Home exercise program, Modified ADL techniques, Progress toward Goal/Update tx plan, Purpose of tx/functional activities Teaching Recipient: Patient Teaching Methods: Discussion Response to Teaching: Verbalize Understanding OT Short Term Goals Short Term Goals Time Frame: Jan 15, 2021 Shower/bathe self: 4 Upper body dressin Lower body dressin OT Alf Goals Blanker Press Operator Goals Time Frame: Jan 30, 2021 Eating (QC): 6 Oral Hygiene (QC): 6 Toileting Hygiene (QC): 6 Shower/Bathe Self (QC): 6 Upper Body Dressing (QC): 6 Lower Body Dressing (QC): 6 On/Off Footwear (QC): 3 Additional Goals: 1-Demonstrate ADL Tasks, 2-Verbalize Understanding, 3- ImproveStrength/Rohini 1=Demonstrate adherence to instructed precautions during ADL tasks. 2=Patient will verbalize/demonstrate understanding of assistive devices/modifications for ADL. 3=Patient will improve strength/tolerance for activity to enable patient to perform ADL's. OT Education/Plan Problem List/Assessment Assessment: Decreased Activ Tolerance, Decreased UE Strength, Impaired I ADL's Discharge Recommendations Plan/Recommendations: Continue POC Treatment Plan/Plan of Care Patient would benefit from OT for education, treatment and training to promote independence in ADL's, mobility, safety and/or upper extremity function for ADL's. Plan of Care: ADL Retraining, Functional Mobility, Group Exercise/Act as Ind, UE Funct Exercise/Act Treatment Duration: Jan 30, 2021 Frequency: At least 5 of 7 days/Wk (IRF) Estimated Hrs Per Day: 1.5 hours per day Rehab Potential: Good Time/GCodes Start Time: 10:30 Stop Time: 11:00 Total Time Billed (hr/min): 30 Billed Treatment Time 1, EX 2 MELISSA ARIAS OT Jan 02, 2021 11:11
--- NOTE | 2021-01-02 13:06 | Physical Therapy Daily Note ---
PT Daily Note-Current Subjective Pt sitting up in [facility] upon arrival to room, agreeable to PT exercises, denies ambulation due to pt getting IV in arm "I dont want to pull that around." Appearance Following session, pt up in [facility] with call light, tray and phone within reach. All needs met at this time, Mental Status Patient Orientation: Person, Place, Situation Attachments: IV Transfers SCALE: Activities may be completed with or without assistive devices. 6-Jfqqcafjpb-tczbaqq completes the activity by him/herself with no assistance from a helper. 5-Set-up or Clean-up Assistance-helper sets up or cleans up; patient completes activity. [place] assists only prior to or following the activity. 4-Supervision or Touching Assistance-helper provides verbal cues and/or touching/steadying and/or contact guard assistance as patient completes activity. Assistance may be provided throughout the activity or intermittently. 3-Partial/Moderate Assistance-helper does LESS THAN HALF the effort. [place] lifts, holds or supports trunk or limbs, but provides less than half the effort. 2-Substantial/Maximal Assistance-helper does MORE THAN HALF the effort. [place] lifts or holds trunk or limbs and provides more than half the effort. 2-Xwsujngcl-zudvtp does ALL the effort. Patient does none of the effort to complete the activity. Or, the assistance of 2 or more helpers is required for the patient to complete the activity. If activity was not attempted, code reason: 7-Patient Refused. 9-Not Applicable-not attempted and the patient did not perform the activity before the current illness, exacerbation or injury. 10-Not Attempted due to Environmental Limitations-(lack of equipment, weather restraints, etc.). 88-Not Attempted due to Medical Conditions or Safety Concerns. Weight Bearing Right Lower Extremity: Right Full Weight Bearing Left Lower Extremity: Left Full Weight Bearing Exercises Seated Therapy Exercises: Ankle pumps, Sit to stand (10), Long arc quads, Hip flexion, Hamstring Curls (RTB), Hip abd/add, Glut set Seated Reps: 15 Standing: Heel/toe raises, 3 way Ex=Flex, Abd, Ext, Mini squats Standing Reps: 15 Assessment Current Status: Good Progress Pt with decreased strength on (L) ankle, unable to complete toe raises. RTB used for PF on (L) ankle. PT Short Term Goals Short Term Goals Time Frame: Jan 14, 2021 Roll Left & Right: 4 Sit to lyin Lying to sitting on side of be: 4 Sit to stand: 4 Chair/pwo-ix-bcyhe transfer: 4 Toilet transfer: 4 Car transfer: 4 Walk 10 feet: 4 Walk 50 feet with two turns: 4 Walk 150 feet: 4 Walking 10ft on uneven surface: 4 1 step (curb): 4 4 steps: 4 12 steps: 9 Picking up objects: 4 Does pt use a wc or scooter: No Wheel 50ft w/2 turns: 9 Wheel 150 feet: 9 Type: N/A PT Prison Goals Prison Goals PT Preschool Adviser Goals Time Frame: Jan 31, 2021 Roll Left & Right (QC): 6 Sit to Lying (QC): 6 Lying-Sitting on Side/Bed(QC): 6 Sit to Stand (QC): 6 Chair/Btt-bo-[place]hief Xfer(QC): 6 Toilet Transfer (QC): 6 Car Transfer (QC): 6 Does the Patient Walk: Yes Walk 10 feet (QC): 6 Walk 50ft with 2 Turns (QC): 6 Walk 150 ft (QC): 6 Walking 10ft on Uneven Surface: 6 1 Step (curb) (QC): 6 4 Steps (QC): 6 12 Steps (QC): 9 Picking up an Object (QC): 6 (Utilizing cane for assistance) Does the Pt use WC or Scooter?: No Wheel 50 feet with 2 turns (QC: 9 Type: N/A Wheel 150 feet: 9 Type: N/A PT Plan Problem List Problem List: Activity Tolerance, Functional Strength, Safety, Balance, Gait, Transfer, Bed Mobility, ROM Treatment/Plan Treatment Plan: Continue Plan of Care Treatment Plan: Bed Mobility, Concurrent Therapy, Education, Functional Activity Rohini, Functional Strength, Group Therapy, Gait, Safety, Therapeutic Exercise, Transfers Treatment Duration: Jan 24, 2021 Frequency: 6 times per week Estimated Hrs Per Day: 1.5 hours per day Patient and/or Family Agrees t: Yes Time/GCodes Time In: 1115 Time Out: 1145 Total Billed Treatment Time: 15 Total Billed Treatment 1 visit EX x 2 (30') SURESH GIBSON PT Jan 02, 2021 13:06
[2021-01-02 16:00] VITALS: BP 160/88
[2021-01-02] MEDS: LOSARTAN 50 MG (COZAAR) TAB PO SCH (21:29)
[2021-01-02] MEDS: ALLOPURINOL 300 MG (ZYLOPRIM) TAB PO SCH (21:29)
[2021-01-02] MEDS: HYDROCHLOROTHIAZIDE 12.5 MG (HCTZ) CAP PO SCH (21:29)
[2021-01-02] MEDS: CEFDINIR 300 MG (OMNICEF) CAP PO SCH (21:29)
[2021-01-03 05:44] VITALS: BP 172/73
[2021-01-03] MEDS: inSUlin ASPART (NovoLOG) 1 UNIT/0.01 ML (CHARGE PER UNIT) SC SCH ×4 (06:23→21:00)
[2021-01-03] MEDS: RT-ALBUTEROL INHALER HFA (VENTOLIN HFA) 18 GM IH SCH ×2 (07:03→18:49)
[2021-01-03] MEDS: metFORMIN 850 MG (GLUCOPHAGE) TAB PO SCH ×2 (08:10→17:16)
[2021-01-03] MEDS: CEFDINIR 300 MG (OMNICEF) CAP PO SCH ×2 (08:10→20:51)
[2021-01-03] MEDS: DOCUSATE SODIUM 100 MG (COLACE) CAP PO SCH ×2 (08:12→20:52)
[2021-01-03] MEDS: polyethylene glycoL POWDER 17 GM (MIRALAX) PACK PO SCH ×2 (08:12→21:00)
[2021-01-03] MEDS: SENNA W/DOCUSATE (SENOKOT S) TABLET PO SCH ×2 (08:12→21:00)
--- NOTE | 2021-01-03 08:41 | PM&R Progress Note ---
Subjective HPI/CC On Admission Date Seen by Provider: Jan 03, 2021 Time Seen by Provider: 14:15 Subjective/Events-last exam 01/03/21: Can't understand why he can't go home Appears he has some underlying cognitive deficit Chair alarm on Incontinent at times 01/02/21: Patient seems upset to be here Already asking "how am I doing" of which I told him that he just arrived and we are assessing him at bedside who knows me from 2 weeks ago back surgery with Dr Branch Got up to go to bathroom on his own with his to help him and RN explained he needs to use call light IV abx will be transitioned to PO abx at his request Very difficult to manage his needs Review of Systems General: Fatigue, Malaise Objective Exam Vital Signs Vital Signs Date Time Temp Pulse Resp B/P (MAP) Pulse Ox O2 Delivery O2 Flow Rate FiO2 01/03/21 18:49 94 Room Air 01/03/21 16:18 36.4 89 16 139/84 (102) 01/03/21 07:03 21 Capillary Refill : General Appearance: No Apparent Distress, WD/WN, Chronically ill, Obese HEENT: PERRL/EOMI, Normal ENT Inspection, Pharynx Normal Neck: Full Range of Motion, Normal Inspection, Non Tender, Supple, Carotid Bruit Respiratory: Chest Non Tender, Lungs Clear, No Accessory Muscle Use, No Respiratory Distress, Decreased Breath Sounds Cardiovascular: Regular Rate, Rhythm, No Edema, No Gallop, No JVD, No Murmur, Normal Peripheral Pulses Gastrointestinal: Normal Bowel Sounds, No Organomegaly, No Pulsatile Mass, Non Tender, Soft Back: Normal Inspection, No CVA Tenderness, No Vertebral Tenderness Extremity: Normal Capillary Refill, Normal Inspection, Normal Range of Motion, Non Tender, No Calf Tenderness, No Pedal Edema Neurologic/Psychiatric: Alert, Oriented x3, No Motor/Sensory Deficits, Normal Mood/Affect, Abnormal Gait, Motor Weakness (generalized) Skin: Normal Color, Warm/Dry Lymphatic: No Adenopathy Results/Procedures Lab Patient resulted labs reviewed. FIM Transfers Therapy Code Descriptions/Definitions Functional [place] Measure: 0=Not Assessed/NA 4=Minimal Assistance 1=Total Assistance 5=Supervision or Setup 2=Maximal Assistance 6=Modified [place] 3=Moderate Assistance 7=Complete IndependenceSCALE: Activities may be completed with or without assistive devices. 6-Zgrwumsxut-ncvhmjg completes the activity by him/herself with no assistance from a helper. 5-Set-up or Clean-up Assistance-helper sets up or cleans up; patient completes activity. [place] assists only prior to or following the activity. 4-Supervision or Touching Assistance-helper provides verbal cues and/or touching/steadying and/or contact guard assistance as patient completes activity. Assistance may be provided throughout the activity or intermittently. 3-Partial/Moderate Assistance-helper does LESS THAN HALF the effort. [place] lifts, holds or supports trunk or limbs, but provides less than half the effort. 2-Substantial/Maximal Assistance-helper does MORE THAN HALF the effort. [place] lifts or holds trunk or limbs and provides more than half the effort. 1-Sfykyfkgx-pqqiux does ALL the effort. Patient does none of the effort to complete the activity. Or, the assistance of 2 or more helpers is required for the patient to complete the activity. If activity was not attempted, code reason: 7-Patient Refused. 9-Not Applicable-not attempted and the patient did not perform the activity before the current illness, exacerbation or injury. 10-Not Attempted due to Environmental Limitations-(lack of equipment, weather restraints, etc.). 88-Not Attempted due to Medical Conditions or Safety Concerns. Roll Left to Right (QC): 4 Sit to Lying (QC): 4 Sit to Stand (QC): 5 Chair/Rwn-ft-Xyufv Xfer(QC): 5 Car Transfer (QC): 4 Gait Training Does the Patient Walk?: Yes Distance: 3 x 150' Walk 10 feet (QC): 4 Walk 50 ft with 2 Turns(QC): 4 Walk 150 ft (QC): 4 Walking 10ft/uneven surface-QC: 4 Gait Assistive Device: FWW Wheelchair Training Wheel 50 ft with 2 turns (QC): 9 Wheel 150 ft (QC): 9 Type of Wheelchair: N/A Stair Training #of Steps: 1 1 Step (curb) (QC): 4 4 Steps (QC): 88 12 Steps (QC): 88 Balance Picking up an Object (QC): 88 ADL-Treatment Eating (QC): 6 (IND) Oral Hygiene (QC): 4 (SBA standing at sink for safety, pt leaning over sink requiring cues to stand up straight.) Shower/Bathe Self (QC): 3 (Assist to wash BLE lower legs/feet and buttocks. Pt able to wash other parts seated on SC) Upper Body Dressing (QC): 3 (Min A with managing shirt down back, pt able to thread BUEs and overhead.) Lower Body Dressing (QC): 3 (Pt able to doff underwear, assist to thread BLEs into underwear, pt able to manage up, assist with managing up completely in the back. Assist to thread LLE into overalls, and assist with managing overalls up.) On/Off Footwear (QC): 2 (Max A overall to don shoes and socks after education of AE) Toileting Hygiene (QC): 4 (CGA for clothing management.) Toilet Transfer (QC): 4 (CGA on/off toilet.) Assessment/Plan Assessment and Plan Assess & Plan/Chief Complaint Assessment: Debility PNA on abx ROSS on CPAP HTN DM Falls Plan: Abx HLIVF Monitor closely IRF protocol 01/02/21: Supportive care Abx change to PO 01/03/21: Monitor closely PO abx (1) Debility (2) Sepsis Status: Acute (3) Pneumonia Status: Acute (4) Dehydration (5) History of falling Status: Acute JEANIE GALVIN DO Jan 03, 2021 08:41
--- NOTE | 2021-01-03 10:43 | Physical Therapy Daily Note ---
PT Daily Note-Current Subjective Pt sitting up in w/c upon arrival; RN in room giving medication. Pt agrees to PT tx. Pain Numeric Pain Scale: 0-No Pain Location: No Pain Reported Mental Status Patient Orientation: Person, Place, Time, Situation Transfers SCALE: Activities may be completed with or without assistive devices. 8-Pzasdzssxo-anekuuj completes the activity by him/herself with no assistance from a helper. 5-Set-up or Clean-up Assistance-helper sets up or cleans up; patient completes activity. [place] assists only prior to or following the activity. 4-Supervision or Touching Assistance-helper provides verbal cues and/or touching/steadying and/or contact guard assistance as patient completes activity . Assistance may be provided throughout the activity or intermittently. 3-Partial/Moderate Assistance-helper does LESS THAN HALF the effort. [place] lifts, holds or supports trunk or limbs, but provides less than half the effort. 2-Substantial/Maximal Assistance-helper does MORE THAN HALF the effort. [place] lifts or holds trunk or limbs and provides more than half the effort. 2-Natlxbbaa-kdqbrz does ALL the effort. Patient does none of the effort to complete the activity. Or, the assistance of 2 or more helpers is required for the patient to complete the activity. If activity was not attempted, code reason: 7-Patient Refused. 9-Not Applicable-not attempted and the patient did not perform the activity before the current illness, exacerbation or injury. 10-Not Attempted due to Environmental Limitations-(lack of equipment, weather restraints, etc.). 88-Not Attempted due to Medical Conditions or Safety Concerns. Sit to Stand (QC): 5 Weight Bearing Right Lower Extremity: Right Full Weight Bearing Left Lower Extremity: Left Full Weight Bearing Gait Training Does the Patient Walk?: Yes Distance: 75' x2 Walk 10 feet (QC): 4 Walk 50 ft with 2 Turns(QC): 4 Gait Persons Needed: 1 Gait Assistive Device: FWW Exercises NuStep Minutes: 15 NuStep Workload: 3 Treatments Pt completes all transfers using FWW w/ supervision. Pt completes NuStep at WL3 for 10 mins and WL4 for 5 mins. Pt returns to room, requests bathroom. Pt stands unsupported to doff/don LE clothing. Pt stands unsupported to wash/dry hands. Pt completes toileting and hand hygiene w/ supervision. Pt returns to w/c, has call light, bedside table and all needs met at end of tx. Assessment Current Status: Good Progress Pt seems SOB at times on NuStep but O2 remains WNL. PT Short Term Goals Short Term Goals Time Frame: Jan 14, 2021 Roll Left & Right: 4 Sit to lyin Lying to sitting on side of be: 4 Sit to stand: 4 Chair/yvt-xj-rknsd transfer: 4 Toilet transfer: 4 Car transfer: 4 Walk 10 feet: 4 Walk 50 feet with two turns: 4 Walk 150 feet: 4 Walking 10ft on uneven surface: 4 1 step (curb): 4 4 steps: 4 12 steps: 9 Picking up objects: 4 Does pt use a wc or scooter: No Wheel 50ft w/2 turns: 9 Wheel 150 feet: 9 Type: N/A PT Skilled Nursing Goals Skilled Nursing Goals PT Help Desk Support Goals Time Frame: Jan 31, 2021 Roll Left & Right (QC): 6 Sit to Lying (QC): 6 Lying-Sitting on Side/Bed(QC): 6 Sit to Stand (QC): 6 Chair/Fhh-nc-Yblmr Xfer(QC): 6 Toilet Transfer (QC): 6 Car Transfer (QC): 6 Does the Patient Walk: Yes Walk 10 feet (QC): 6 Walk 50ft with 2 Turns (QC): 6 Walk 150 ft (QC): 6 Walking 10ft on Uneven Surface: 6 1 Step (curb) (QC): 6 4 Steps (QC): 6 12 Steps (QC): 9 Picking up an Object (QC): 6 (Utilizing cane for assistance) Does the Pt use WC or Scooter?: No Wheel 50 feet with 2 turns (QC: 9 Type: N/A Wheel 150 feet: 9 Type: N/A PT Plan Problem List Problem List: Activity Tolerance, Functional Strength, Safety, Balance, Gait, Transfer, Bed Mobility, ROM Treatment/Plan Treatment Plan: Continue Plan of Care Treatment Plan: Bed Mobility, Concurrent Therapy, Education, Functional Activity [place], Functional Strength, Group Therapy, Gait, Safety, Therapeutic Exercise, Transfers Treatment Duration: Jan 24, 2021 Frequency: 6 times per week Estimated Hrs Per Day: 1.5 hours per day Patient and/or Family Agrees t: Yes Safety Risks/Education Patient Education: Safety Issues Teaching Recipient: Patient Teaching Methods: Discussion Response to Teaching: Verbalize Understanding Time/GCodes Time In: 811 Time Out: 845 Total Billed Treatment Time: 34 Total Billed Treatment 1, EX x1(15m), FA x1(12m) and GT (7m) HENRY INFANTE TECHNOLOGY INSTRUCTOR Jan 03, 2021 10:43
[2021-01-03 16:18] VITALS: BP 139/84
[2021-01-03] MEDS: HYDROCHLOROTHIAZIDE 12.5 MG (HCTZ) CAP PO SCH (20:51)
[2021-01-03] MEDS: ALLOPURINOL 300 MG (ZYLOPRIM) TAB PO SCH (20:51)
[2021-01-03] MEDS: LOSARTAN 50 MG (COZAAR) TAB PO SCH (20:52)
[2021-01-03 21:00] VITALS: BP 148/65
[2021-01-04 05:12] VITALS: BP 167/76
[2021-01-04] MEDS: inSUlin ASPART (NovoLOG) 1 UNIT/0.01 ML (CHARGE PER UNIT) SC SCH ×4 (06:28→20:42)
--- NOTE | 2021-01-04 07:20 | PM&R Progress Note ---
Subjective HPI/CC On Admission Date Seen by Provider: Jan 04, 2021 Time Seen by Provider: 13:30 Subjective/Events-last exam 01/04/21: Sleeping soundly Monitor closely Unhappy about being here at IRF just had surgery 2.5 weeks ago and can't help him recuperate Incontinence noted 01/03/21: Can't understand why he can't go home Appears he has some underlying cognitive deficit Chair alarm on Incontinent at times 01/02/21: Patient seems upset to be here Already asking "how am I doing" of which I told him that he just arrived and we are assessing him at bedside who knows me from 2 weeks ago back surgery with Dr Branch Got up to go to bathroom on his own with his to help him and RN explained he needs to use call light IV abx will be transitioned to PO abx at his request Very difficult to manage his needs Review of Systems General: Fatigue, Malaise Pulmonary: Dyspnea Objective Exam Vital Signs Vital Signs Date Time Temp Pulse Resp B/P (MAP) Pulse Ox O2 Delivery O2 Flow Rate FiO2 01/04/21 17:13 36.6 79 20 157/72 (100) 95 Room Air 01/03/21 07:03 21 Capillary Refill : General Appearance: No Apparent Distress, WD/WN, Chronically ill, Obese HEENT: PERRL/EOMI, Normal ENT Inspection, Pharynx Normal Neck: Full Range of Motion, Normal Inspection, Non Tender, Supple, Carotid Bruit Respiratory: Chest Non Tender, Lungs Clear, No Accessory Muscle Use, No Respiratory Distress, Decreased Breath Sounds Cardiovascular: Regular Rate, Rhythm, No Edema, No Gallop, No JVD, No Murmur, Normal Peripheral Pulses Gastrointestinal: Normal Bowel Sounds, No Organomegaly, No Pulsatile Mass, Non Tender, Soft Back: Normal Inspection, No CVA Tenderness, No Vertebral Tenderness Extremity: Normal Capillary Refill, Normal Inspection, Normal Range of Motion, Non Tender, No Calf Tenderness, No Pedal Edema Neurologic/Psychiatric: Alert, Oriented x3, No Motor/Sensory Deficits, Normal Mood/Affect, Abnormal Gait, Motor Weakness (generalized) Skin: Normal Color, Warm/Dry Lymphatic: No Adenopathy Results/Procedures Lab Patient resulted labs reviewed. FIM Transfers Therapy Code Descriptions/Definitions Functional [place] Measure: 0=Not Assessed/NA 4=Minimal Assistance 1=Total Assistance 5=Supervision or Setup 2=Maximal Assistance 6=Modified [place] 3=Moderate Assistance 7=Complete IndependenceSCALE: Activities may be completed with or without assistive devices. 4-Lfrgdqtvtf-aopwyeq completes the activity by him/herself with no assistance from a helper. 5-Set-up or Clean-up Assistance-helper sets up or cleans up; patient completes activity. [place] assists only prior to or following the activity. 4-Supervision or Touching Assistance-helper provides verbal cues and/or touching/steadying and/or contact guard assistance as patient completes activity. Assistance may be provided throughout the activity or intermittently. 3-Partial/Moderate Assistance-helper does LESS THAN HALF the effort. [place] lifts, holds or supports trunk or limbs, but provides less than half the effort. 2-Substantial/Maximal Assistance-helper does MORE THAN HALF the effort. [place] lifts or holds trunk or limbs and provides more than half the effort. 1-Komjbnlah-ubpndd does ALL the effort. Patient does none of the effort to complete the activity. Or, the assistance of 2 or more helpers is required for the patient to complete the activity. If activity was not attempted, code reason: 7-Patient Refused. 9-Not Applicable-not attempted and the patient did not perform the activity before the current illness, exacerbation or injury. 10-Not Attempted due to Environmental Limitations-(lack of equipment, weather restraints, etc.). 88-Not Attempted due to Medical Conditions or Safety Concerns. Roll Left to Right (QC): 4 Sit to Lying (QC): 4 Sit to Stand (QC): 5 Chair/Aye-ph-Tsuvn Xfer(QC): 5 Car Transfer (QC): 4 Gait Training Does the Patient Walk?: Yes Distance: 75' x2 Walk 10 feet (QC): 4 Walk 50 ft with 2 Turns(QC): 4 Walk 150 ft (QC): 4 Walking 10ft/uneven surface-QC: 4 Gait Persons Needed: 1 Gait Assistive Device: FWW Wheelchair Training Wheel 50 ft with 2 turns (QC): 9 Wheel 150 ft (QC): 9 Type of Wheelchair: N/A Stair Training #of Steps: 1 1 Step (curb) (QC): 4 4 Steps (QC): 88 12 Steps (QC): 88 Balance Picking up an Object (QC): 88 ADL-Treatment Eating (QC): 6 (IND) Oral Hygiene (QC): 4 (SBA standing at sink for safety, pt leaning over sink requiring cues to stand up straight.) Shower/Bathe Self (QC): 3 (Assist to wash BLE lower legs/feet and buttocks. Pt able to wash other parts seated on SC) Upper Body Dressing (QC): 3 (Min A with managing shirt down back, pt able to thread BUEs and overhead.) Lower Body Dressing (QC): 3 (Pt able to doff underwear, assist to thread BLEs into underwear, pt able to manage up, assist with managing up completely in the back. Assist to thread LLE into overalls, and assist with managing overalls up.) On/Off Footwear (QC): 2 (Max A overall to don shoes and socks after education of AE) Toileting Hygiene (QC): 4 (CGA for clothing management.) Toilet Transfer (QC): 4 (CGA on/off toilet.) Assessment/Plan Assessment and Plan Assess & Plan/Chief Complaint Assessment: Debility PNA on abx ROSS on CPAP HTN DM Falls Incontinence Plan: Abx HLIVF Monitor closely IRF protocol 01/02/21: Supportive care Abx change to PO 01/03/21: Monitor closely PO abx 01/03/21: Incontinence noted PO abx Monitor O2 (1) Debility (2) Sepsis Status: Acute (3) Pneumonia Status: Acute (4) Dehydration (5) History of falling Status: Acute JEANIE GALVIN DO Jan 04, 2021 07:20
[2021-01-04] MEDS: metFORMIN 850 MG (GLUCOPHAGE) TAB PO SCH ×2 (08:12→17:22)
[2021-01-04] MEDS: CEFDINIR 300 MG (OMNICEF) CAP PO SCH ×2 (08:12→20:42)
[2021-01-04] MEDS: DOCUSATE SODIUM 100 MG (COLACE) CAP PO SCH ×2 (08:19→20:40)
[2021-01-04] MEDS: SENNA W/DOCUSATE (SENOKOT S) TABLET PO SCH ×2 (08:19→20:40)
[2021-01-04] MEDS: polyethylene glycoL POWDER 17 GM (MIRALAX) PACK PO SCH ×2 (08:19→20:40)
[2021-01-04] MEDS: RT-ALBUTEROL INHALER HFA (VENTOLIN HFA) 18 GM IH SCH ×2 (08:49→21:01)
[2021-01-04 17:13] VITALS: BP 157/72
[2021-01-04] MEDS: HYDROCHLOROTHIAZIDE 12.5 MG (HCTZ) CAP PO SCH (20:41)
[2021-01-04] MEDS: LOSARTAN 50 MG (COZAAR) TAB PO SCH (20:41)
[2021-01-04] MEDS: ALLOPURINOL 300 MG (ZYLOPRIM) TAB PO SCH (20:42)
[2021-01-05 06:00] VITALS: BP 152/72
[2021-01-05] MEDS: inSUlin ASPART (NovoLOG) 1 UNIT/0.01 ML (CHARGE PER UNIT) SC SCH ×4 (06:00→20:35)
[2021-01-05 06:23] LABS: BASOPHILS # (AUTO) 0.1 10^3/uL (0.0-0.1); BASOPHILS % (AUTO) 1 % (0-10); EOSINOPHILS # (AUTO) 0.5 10^3/uL (0.0-0.3); EOSINOPHILS % (AUTO) 6 % (0-10); HEMATOCRIT 39 % (40-54); HEMOGLOBIN 12.9 g/dL (13.3-17.7); LYMPHOCYTES # (AUTO) 1.5 10^3/uL (1.0-4.0); LYMPHOCYTES % (AUTO) 18 % (12-44); MEAN CORPUSCULAR HEMOGLOBIN 30 pg (25-34); MEAN CORPUSCULAR HGB CONC 33 g/dL (32-36); MEAN CORPUSCULAR VOLUME 90 fL (80-99); MONOCYTES # (AUTO) 0.5 10^3/uL (0.0-1.0); MONOCYTES % (AUTO) 6 % (0-12); NEUTROPHILS # (AUTO) 5.6 10^3/uL (1.8-7.8); NEUTROPHILS % (AUTO) 68 % (42-75); PLATELET COUNT 366 10^3/uL (130-400); WHITE BLOOD COUNT 8.2 10^3/uL (4.3-11.0)
[2021-01-05 06:30] LABS: ALBUMIN 3.7 GM/DL (3.2-4.5); POTASSIUM 3.7 MMOL/L (3.6-5.0)
[2021-01-05 06:31] LABS: CALCIUM 9.3 MG/DL (8.5-10.1)
[2021-01-05 06:34] LABS: BILIRUBIN,TOTAL 0.8 MG/DL (0.1-1.0)
[2021-01-05 06:36] LABS: CREATININE SERUM 1.23 MG/DL (0.60-1.30)
--- NOTE | 2021-01-05 08:01 | Progress Note ---
Subjective Subjective Date Seen by Provider: Jan 05, 2021 Time Seen by Provider: 07:40 Pt seen and examined. He was sitting up in a wheelchair watching tv, NAD. He denies chest pain, SOB, N/V. He had concerns of ineffective/not enough benefit from PT/OT since being admitted to IRF. Review of Systems General: No Chills; Fatigue; No Malaise HEENT: No Head Aches, No Visual Changes Pulmonary: No Dyspnea, No Cough Cardiovascular: No: Chest Pain, Palpitations, Lt Headedness Gastrointestinal: No: Nausea, Vomiting, Abdominal Pain Genitourinary: No Dysuria, No Hematuria Musculoskeletal: No: neck pain, back pain Neurological: No: Weakness, Numbness Objective Exam Vital Signs Vital Signs - First Documented 01/01/21 01/01/21 01/01/21 14:18 15:00 18:21 Temp 36.6 Pulse 95 Resp 18 B/P (MAP) 160/70 (100) Pulse Ox 95 O2 Delivery Room Air FiO2 21 Capillary Refill : General Appearance: No Apparent Distress, WD/WN, Chronically ill, Obese Eyes: Bilateral Eye Normal Inspection, Bilateral Eye PERRL HEENT: PERRL/EOMI, Normal ENT Inspection, Pharynx Normal Neck: Full Range of Motion, Normal Inspection, Non Tender, Supple Respiratory: Chest Non Tender, Lungs Clear, No Accessory Muscle Use, No Res piratory Distress, Decreased Breath Sounds Cardiovascular: Regular Rate, Rhythm, No Edema, No Gallop, No JVD, No Murmur, Normal Peripheral Pulses, Other (2+ pitting edema BLE) Gastrointestinal: Normal Bowel Sounds, No Organomegaly, No Pulsatile Mass, Non Tender, Soft Rectal: Deferred Back: Normal Inspection, No CVA Tenderness, No Vertebral Tenderness Extremity: Normal Capillary Refill, Normal Inspection, Normal Range of Motion, Non Tender, No Calf Tenderness, Swelling (2+ pitting edema BLE) Neurologic/Psychiatric: Alert, Oriented x3, No Motor/Sensory Deficits, Normal Mood/Affect, Motor Weakness Skin: Normal Color, Warm/Dry Lymphatic: No Adenopathy Results Lab Laboratory Tests 01/04/21 10:51: Glucometer 195H 01/04/21 16:25: Glucometer 123H 01/04/21 20:37: Glucometer 153H 01/05/21 05:45: White Blood Count 8.2, Red Blood Count 4.34, Hemoglobin 12.9L, Hematocrit 39L, Mean Corpuscular Volume 90, Mean Corpuscular Hemoglobin 30, Mean Corpuscular Hemoglobin Concent 33, Red Cell Distribution Width 12.7, Platelet Count 366, Me an Platelet Volume 10.0, Immature Granulocyte % (Auto) 0, Neutrophils (%) (Auto) 68, Lymphocytes (%) (Auto) 18, Monocytes (%) (Auto) 6, Eosinophils (%) (Auto) 6, Basophils (%) (Auto) 1, Neutrophils # (Auto) 5.6, Lymphocytes # (Auto) 1.5, Monocytes # (Auto) 0.5, Eosinophils # (Auto) 0.5H, Basophils # (Auto) 0.1, Immature Granulocyte # (Auto) 0.0, Sodium Level 139, Potassium Level 3.7, Chloride Level 104, Carbon Dioxide Level 24, Anion Gap 11, Blood Urea Nitrogen 20H, Creatinine 1.23, Estimat Glomerular Filtration Rate 58, BUN/Creatinine Ratio 16, Glucose Level 126H, Calcium Level 9.3, Corrected Calcium 9.5, Total Bilirubin 0.8, Aspartate Amino Transf (AST/SGOT) 26, Alanine Aminotransferase (ALT/SGPT) 38, Alkaline Phosphatase 66, Total Protein 7.0, Albumin 3.7 Assessment/Plan Assessment/Plan Assessment and Plan Debility - recent inpatient stay for pneumonia ROSS - CPAP HTN DM He is unhappy with having to be in the IRF and doesn't see much benefit to it Continue PT/OT; pt should not require assistance with ambulation/ADL's D/C later this week Monitor VS/labs Problems: (1) Debility (2) Sepsis (3) Pneumonia (4) Dehydration (5) History of falling ERNIERITCHIE HERRERA MED STUDENT Jan 05, 2021 08:01
[2021-01-05] MEDS: DOCUSATE SODIUM 100 MG (COLACE) CAP PO SCH ×2 (08:03→20:35)
[2021-01-05] MEDS: SENNA W/DOCUSATE (SENOKOT S) TABLET PO SCH ×2 (08:03→20:35)
[2021-01-05] MEDS: polyethylene glycoL POWDER 17 GM (MIRALAX) PACK PO SCH ×2 (08:03→20:35)
[2021-01-05] MEDS: metFORMIN 850 MG (GLUCOPHAGE) TAB PO SCH ×2 (08:04→18:09)
[2021-01-05] MEDS: CEFDINIR 300 MG (OMNICEF) CAP PO SCH ×2 (08:04→21:08)
--- NOTE | 2021-01-05 08:42 | PM&R Progress Note ---
Subjective HPI/CC On Admission Date Seen by Provider: Jan 05, 2021 Time Seen by Provider: 10:30 Subjective/Events-last exam 01/05/21: Pt did pretty well today Took shower on his own Falls a lot at home Labs are okay Incontinence is noted 01/04/21: Sleeping soundly Monitor closely Unhappy about being here at IRF just had surgery 2.5 weeks ago and can't help him recuperate Incontinence noted 01/03/21: Can't understand why he can't go home Appears he has some underlying cognitive deficit Chair alarm on Incontinent at times 01/02/21: Patient seems upset to be here Already asking "how am I doing" of which I told him that he just arrived and we are assessing him at bedside who knows me from 2 weeks ago back surgery with Dr Branch Got up to go to bathroom on his own with his to help him and RN explained he needs to use call light IV abx will be transitioned to PO abx at his request Very difficult to manage his needs Review of Systems General: Fatigue, Malaise Objective Exam Vital Signs Vital Signs Date Time Temp Pulse Resp B/P (MAP) Pulse Ox O2 Delivery O2 Flow Rate FiO2 01/05/21 20:30 95 Room Air 01/05/21 17:46 37.1 83 18 149/67 (94) 01/03/21 07:03 21 Capillary Refill : General Appearance: No Apparent Distress, WD/WN, Chronically ill, Obese HEENT: PERRL/EOMI, Normal ENT Inspection, Pharynx Normal Neck: Full Range of Motion, Normal Inspection, Non Tender, Supple Respiratory: Chest Non Tender, Lungs Clear, No Accessory Muscle Use, No Respiratory Distress, Decreased Breath Sounds Cardiovascular: Regular Rate, Rhythm, No Edema, No Gallop, No JVD, No Murmur, Normal Peripheral Pulses, Other (2+ pitting edema BLE) Gastrointestinal: Normal Bowel Sounds, No Organomegaly, No Pulsatile Mass, Non Tender, Soft Rectal: Deferred Back: Normal Inspection, No CVA Tenderness, No Vertebral Tenderness Extremity: Normal Capillary Refill, Normal Inspection, Normal Range of Motion, Non Tender, No Calf Tenderness, Swelling (2+ pitting edema BLE) Neurologic/Psychiatric: Alert, Oriented x3, No Motor/Sensory Deficits, Normal Mood/Affect, Motor Weakness Skin: Normal Color, Warm/Dry Lymphatic: No Adenopathy Results/Procedures Lab Laboratory Tests 01/05/21 05:45 Patient resulted labs reviewed. FIM Transfers Therapy Code Descriptions/Definitions Functional [place] Measure: 0=Not Assessed/NA 4=Minimal Assistance 1=Total Assistance 5=Supervision or Setup 2=Maximal Assistance 6=Modified [place] 3=Moderate Assistance 7=Complete IndependenceSCALE: Activities may be completed with or without assistive devices. 7-Ubgqexside-ajpmcpd completes the activity by him/herself with no assistance from a helper. 5-Set-up or Clean-up Assistance-helper sets up or cleans up; patient completes activity. [place] assists only prior to or following the activity. 4-Supervision or Touching Assistance-helper provides verbal cues and/or touching/steadying and/or contact guard assistance as patient completes activity. Assistance may be provided throughout the activity or intermittently. 3-Partial/Moderate Assistance-helper does LESS THAN HALF the effort. [place] lifts, holds or supports trunk or limbs, but provides less than half the effort. 2-Substantial/Maximal Assistance-helper does MORE THAN HALF the effort. [place] lifts or holds trunk or limbs and provides more than half the effort. 4-Sxbbavgua-hmluup does ALL the effort. Patient does none of the effort to complete the activity. Or, the assistance of 2 or more helpers is required for the patient to complete the activity. If activity was not attempted, code reason: 7-Patient Refused. 9-Not Applicable-not attempted and the patient did not perform the activity before the current illness, exacerbation or injury. 10-Not Attempted due to Environmental Limitations-(lack of equipment, weather restraints, etc.). 88-Not Attempted due to Medical Conditions or Safety Concerns. Roll Left to Right (QC): 4 Sit to Lying (QC): 4 Sit to Stand (QC): 5 Chair/Sex-jo-Chgtg Xfer(QC): 5 Car Transfer (QC): 4 Gait Training Does the Patient Walk?: Yes Distance: 75' x2 Walk 10 feet (QC): 4 Walk 50 ft with 2 Turns(QC): 4 Walk 150 ft (QC): 4 Walking 10ft/uneven surface-QC: 4 Gait Persons Needed: 1 Gait Assistive Device: FWW Wheelchair Training Wheel 50 ft with 2 turns (QC): 9 Wheel 150 ft (QC): 9 Type of Wheelchair: N/A Stair Training #of Steps: 1 1 Step (curb) (QC): 4 4 Steps (QC): 88 12 Steps (QC): 88 Balance Picking up an Object (QC): 88 ADL-Treatment Eating (QC): 6 (IND) Oral Hygiene (QC): 4 (SBA standing at sink for safety, pt leaning over sink requiring cues to stand up straight.) Shower/Bathe Self (QC): 3 (Assist to wash BLE lower legs/feet and buttocks. Pt able to wash other parts seated on SC) Upper Body Dressing (QC): 3 (Min A with managing shirt down back, pt able to thread BUEs and overhead.) Lower Body Dressing (QC): 3 (Pt able to doff underwear, assist to thread BLEs into underwear, pt able to manage up, assist with managing up completely in the back. Assist to thread LLE into overalls, and assist with managing overalls up.) On/Off Footwear (QC): 2 (Max A overall to don shoes and socks after education o f AE) Toileting Hygiene (QC): 4 (CGA for clothing management.) Toilet Transfer (QC): 4 (CGA on/off toilet.) Assessment/Plan Assessment and Plan Assess & Plan/Chief Complaint Assessment: Debility PNA on abx ROSS on CPAP HTN DM Falls Incontinence Plan: Abx HLIVF Monitor closely IRF protocol 01/02/21: Supportive care Abx change to PO 01/03/21: Monitor closely PO abx 01/04/21: Incontinence noted PO abx Monitor O2 01/05/21: Monitor progress Abx completing (1) Debility (2) Sepsis Status: Acute (3) Pneumonia Status: Acute (4) Dehydration (5) History of falling Status: Acute JEANIE GALVIN DO Jan 05, 2021 08:42
[2021-01-05] MEDS: RT-ALBUTEROL INHALER HFA (VENTOLIN HFA) 18 GM IH SCH ×2 (09:30→19:44)
--- NOTE | 2021-01-05 10:24 | Physical Therapy Daily Note ---
PT Daily Note-Current Subjective Patient seated upright in chair pre tx. Patient reports no pain, and willingly consents to therapy. Appearance Patient seated upright, in chair with call button within reach and tray table positioned in front of patient. Mental Status Patient Orientation: Person, Place, Time, Normal For Age Transfers SCALE: Activities may be completed with or without assistive devices. 3-Uydhmlwact-draphqy completes the activity by him/herself with no assistance from a helper. 5-Set-up or Clean-up Assistance-helper sets up or cleans up; patient completes activity. [place] assists only prior to or following the activity. 4-Supervision or Touching Assistance-helper provides verbal cues and/or touching/steadying and/or contact guard assistance as patient completes activity. Assistance may be provided throughout the activity or intermittently. 3-Partial/Moderate Assistance-helper does LESS THAN HALF the effort. [place] lifts, holds or supports trunk or limbs, but provides less than half the effort. 2-Substantial/Maximal Assistance-helper does MORE THAN HALF the effort. [place] lifts or holds trunk or limbs and provides more than half the effort. 4-Nfzsvubvi-pxgaxg does ALL the effort. Patient does none of the effort to complete the activity. Or, the assistance of 2 or more helpers is required for the patient to complete the activity. If activity was not attempted, code reason: 7-Patient Refused. 9-Not Applicable-not attempted and the patient did not perform the activity before the current illness, exacerbation or injury. 10-Not Attempted due to Environmental Limitations-(lack of equipment, weather restraints, etc.). 88-Not Attempted due to Medical Conditions or Safety Concerns. Sit to Stand (QC): 6 Chair/Rgk-kk-Ncyvj Xfer(QC): 6 Patient is steady with transfers, utilizes pushing from seat with sit <-> stand, demonstrated no alexis LOB. Weight Bearing Right Lower Extremity: Right Full Weight Bearing Left Lower Extremity: Left Full Weight Bearing Gait Training Does the Patient Walk?: Yes Distance: 200' x2 Walk 10 feet (QC): 6 Walk 50 ft with 2 Turns(QC): 6 Walk 150 ft (QC): 6 Gait Assistive Device: FWW Patient able to ambulate with slow but steady gait. During second ambulation, patient self-corrected body positioning by standing straighter which allowed him to increase gait speed overall while maintaining balance. 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 Patient relied on UE's in parallel bars with single leg activities, but was able to complete all repetitions. NuStep Minutes: 15 NuStep Workload: 4 Treatments LE strengthening, balance, functional mobility, and gait training. Assessment Current Status: Good Progress Patient demonstrated improvements in gait endurance and overall functional mobility during today's session. PT Short Term Goals Short Term Goals Time Frame: Jan 14, 2021 Roll Left & Right: 4 Sit to lyin Lying to sitting on side of be: 4 Sit to stand: 4 Chair/phz-jt-yvvfa transfer: 4 Toilet transfer: 4 Car transfer: 4 Walk 10 feet: 4 Walk 50 feet with two turns: 4 Walk 150 feet: 4 Walking 10ft on uneven surface: 4 1 step (curb): 4 4 steps: 4 12 steps: 9 Picking up objects: 4 Does pt use a wc or scooter: No Wheel 50ft w/2 turns: 9 Wheel 150 feet: 9 Type: N/A PT Publicist Goals Publicist Goals PT Publicist Goals Time Frame: Jan 31, 2021 Roll Left & Right (QC): 6 Sit to Lying (QC): 6 Lying-Sitting on Side/Bed(QC): 6 Sit to Stand (QC): 6 Chair/Cwj-iz-Zkaiq Xfer(QC): 6 Toilet Transfer (QC): 6 Car Transfer (QC): 6 Does the Patient Walk: Yes Walk 10 feet (QC): 6 Walk 50ft with 2 Turns (QC): 6 Walk 150 ft (QC): 6 Walking 10ft on Uneven Surface: 6 1 Step (curb) (QC): 6 4 Steps (QC): 6 12 Steps (QC): 9 Picking up an Object (QC): 6 (Utilizing cane for assistance) Does the Pt use WC or Scooter?: No Wheel 50 feet with 2 turns (QC: 9 Type: N/A Wheel 150 feet: 9 Type: N/A PT Plan Problem List Problem List: Activity Tolerance, Functional Strength, Safety, Balance, Gait, Transfer, ROM Treatment/Plan Treatment Plan: Continue Plan of Care Treatment Plan: Bed Mobility, Concurrent Therapy, Education, Functional Activity Rohini, Functional Strength, Group Therapy, Gait, Safety, Therapeutic Exercise, Transfers Treatment Duration: Jan 24, 2021 Frequency: At least 5 of 7 days/Wk (IRF) Estimated Hrs Per Day: 1.5 hours per day Patient and/or Family Agrees t: Yes Safety Risks/Education Patient Education: Gait Training, Transfer Techniques, Correct Positioning, Safety Issues Teaching Recipient: Patient Teaching Methods: Demonstration, Discussion Response to Teaching: Reinforcement Needed Time/GCodes Time In: 929 Time Out: 1030 Total Billed Treatment Time: 60 Total Billed Treatment 1 visit: GT: 15' EX x3: 45' LEXX MCNALLY PT Jan 05, 2021 10:24
--- NOTE | 2021-01-05 11:56 | Occupational Ther Daily Note ---
OT Current Status-Daily Note Subjective Pt alert, sitting in recliner. Pt agrees to therapy. No c/o pain. Mental Status/Objective Patient Orientation: Person, Place, Time, Situation ADL-Treatment Pt declines shower due to taking shower at 0400 today. CGA for stability with toilet transfer and standing to manipulate clothing. Therapy Code Descriptions/Definitions Functional [place] Measure: 0=Not Assessed/NA 4=Minimal Assistance 1=Total Assistance 5=Supervision or Setup 2=Maximal Assistance 6=Modified [place] 3=Moderate Assistance 7=Complete IndependenceSCALE: Activities may be completed with or without assistive devices. 1-Lbfaohuesa-pqtsjxq completes the activity by him/herself with no assistance from a helper. 5-Set-up or Clean-up Assistance-helper sets up or cleans up; patient completes activity. [place] assists only prior to or following the activity. 4-Supervision or Touching Assistance-helper provides verbal cues and/or touch ing/steadying and/or contact guard assistance as patient completes activity. Assistance may be provided throughout the activity or intermittently. 3-Partial/Moderate Assistance-helper does LESS THAN HALF the effort. [place] lifts, holds or supports trunk or limbs, but provides less than half the effort. 2-Substantial/Maximal Assistance-helper does MORE THAN HALF the effort. [place] lifts or holds trunk or limbs and provides more than half the effort. 2-Dmkfdzxkd-qpisux does ALL the effort. Patient does none of the effort to complete the activity. Or, the assistance of 2 or more helpers is required for the patient to complete the activity. If activity was not attempted, code reason: 7-Patient Refused. 9-Not Applicable-not attempted and the patient did not perform the activity before the current illness, exacerbation or injury. 10-Not Attempted due to Environmental Limitations-(lack of equipment, weather restraints, etc.). 88-Not Attempted due to Medical Conditions or Safety Concerns. Toilet Transfer (QC): 4 Other Treatment Pt ambulated using FWW to therapy gym. Pt completed B UE exercises to increase strength and activity tolerance for daily functional tasks. Arm bike for 15 min at 20 cameron resistance. B wrist flex/ext/radial dev using 3# wt, 3 sets 10 reps. Dowel adama exercises with 3# wt attached, bicep and tricep curls 30 reps then shldr flex and chest press 2 sets 10 reps. After session, pt sitting in recliner with call light/phone in reach. All needs met in room. OT Short Term Goals Short Term Goals Time Frame: Jan 15, 2021 Shower/bathe self: 4 Upper body dressin Lower body dressin OT Hydraulic Operator Goals Nursing Home Goals Time Frame: Jan 30, 2021 Eating (QC): 6 Oral Hygiene (QC): 6 Toileting Hygiene (QC): 6 Shower/Bathe Self (QC): 6 Upper Body Dressing (QC): 6 Lower Body Dressing (QC): 6 On/Off Footwear (QC): 3 Additional Goals: 1-Demonstrate ADL Tasks, 2-Verbalize Understanding, 3- ImproveStrength/Rohini 1=Demonstrate adherence to instructed precautions during ADL tasks. 2=Patient will verbalize/demonstrate understanding of assistive devices/modifications for ADL. 3=Patient will improve strength/tolerance for activity to enable patient to perform ADL's. OT Education/Plan Problem List/Assessment Assessment: Decreased Activ Tolerance, Decreased UE Strength Discharge Recommendations Plan/Recommendations: Continue POC Treatment Plan/Plan of Care Patient would benefit from OT for education, treatment and training to promote independence in ADL's, mobility, safety and/or upper extremity function for ADL's. Plan of Care: ADL Retraining, Functional Mobility, Group Exercise/Act as Ind, UE Funct Exercise/Act Treatment Duration: Jan 30, 2021 Frequency: At least 5 of 7 days/Wk (IRF) Estimated Hrs Per Day: 1.5 hours per day Rehab Potential: Good Time/GCodes Start Time: 11:00 Stop Time: 12:00 Total Time Billed (hr/min): 60 Billed Treatment Time 1 visit-EX 4 (60 min) BRIAN BARBOZA Jan 05, 2021 11:56
--- NOTE | 2021-01-05 13:35 | Occupational Ther Daily Note ---
OT Current Status-Daily Note Subjective Pt alert, sitting in w/c. Pt agrees to therapy. No c/o pain, only fatigue. Mental Status/Objective Patient Orientation: Person, Place, Time, Situation ADL-Treatment Therapy Code Descriptions/Definitions Functional [place] Measure: 0=Not Assessed/NA 4=Minimal Assistance 1=Total Assistance 5=Supervision or Setup 2=Maximal Assistance 6=Modified [place] 3=Moderate Assistance 7=Complete IndependenceSCALE: Activities may be completed with or without assistive devices. 8-Aikdbqhwrj-cckwvvc completes the activity by him/herself with no assistance from a helper. 5-Set-up or Clean-up Assistance-helper sets up or cleans up; patient completes activity. [place] assists only prior to or following the activity. 4-Supervision or Touching Assistance-helper provides verbal cues and/or touching/steadying and/or contact guard assistance as patient completes activity. Assistance may be provided throughout the activity or intermittently. 3-Partial/Moderate Assistance-helper does LESS THAN HALF the effort. [place] lifts, holds or supports trunk or limbs, but provides less than half the effort. 2-Substantial/Maximal Assistance-helper does MORE THAN HALF the effort. [place] lifts or holds trunk or limbs and provides more than half the effort. 7-Omzifpsan-qozvzo does ALL the effort. Patient does none of the effort to complete the activity. Or, the assistance of 2 or more helpers is required for the patient to complete the activity. If activity was not attempted, code reason: 7-Patient Refused. 9-Not Applicable-not attempted and the patient did not perform the activity before the current illness, exacerbation or injury. 10-Not Attempted due to Environmental Limitations-(lack of equipment, weather restraints, etc.). 88-Not Attempted due to Medical Conditions or Safety Concerns. Other Treatment Skilled instruction for B UE exercises completed to increase strength and activity tolerance for daily functional tasks. Using medium resistance theraband, pt completed 5 exercise with verbal and physical cues to complete with correct technique. Pt tolerated 1 set 10 reps of each. Pt then completed one lap around [facility] propelling w/c with B UE only. Pt takes increased time to complete all tasks. After session, pt sitting in w/c with call light/phone in reach. All needs met in room. OT Short Term Goals Short Term Goals Time Frame: Jan 15, 2021 Shower/bathe self: 4 Upper body dressin Lower body dressin OT [facility] Goals [facility] Goals Time Frame: Jan 30, 2021 Eating (QC): 6 Oral Hygiene (QC): 6 Toileting Hygiene (QC): 6 Shower/Bathe Self (QC): 6 Upper Body Dressing (QC): 6 Lower Body Dressing (QC): 6 On/Off Footwear (QC): 3 Additional Goals: 1-Demonstrate ADL Tasks, 2-Verbalize Understanding, 3- ImproveStrength/Rohini 1=Demonstrate adherence to instructed precautions during ADL tasks. 2=Patient will verbalize/demonstrate understanding of assistive devices/modifications for ADL. 3=Patient will improve strength/tolerance for activity to enable patient to perform ADL's. OT Education/Plan Problem List/Assessment Assessment: Decreased Activ Tolerance, Decreased UE Strength Discharge Recommendations Plan/Recommendations: Continue POC Treatment Plan/Plan of Care Patient would benefit from OT for education, treatment and training to promote independence in ADL's, mobility, safety and/or upper extremity function for ADL's. Plan of Care: ADL Retraining, Functional Mobility, Group Exercise/Act as Ind, UE Funct Exercise/Act Treatment Duration: Jan 30, 2021 Frequency: At least 5 of 7 days/Wk (IRF) Estimated Hrs Per Day: 1.5 hours per day Rehab Potential: Good Time/GCodes Start Time: 13:00 Stop Time: 13:30 Total Time Billed (hr/min): 30 Billed Treatment Time 1 visit-EX 2 (30 min) BRIAN BARBOZA Jan 05, 2021 13:35
--- NOTE | 2021-01-05 14:27 | Physical Therapy Daily Note ---
PT Daily Note-Current Subjective Patient was upright in chair pre tx. Patient reported no pain, but noted he was tired. Patient consented to PT. Appearance Patient was seated upright, in w/c, with call light within reach and tray table placed in front. Mental Status Patient Orientation: Person, Place, Time, Normal For Age Transfers SCALE: Activities may be completed with or without assistive devices. 9-Badkdmnmsc-uhdpsni completes the activity by him/herself with no assistance from a helper. 5-Set-up or Clean-up Assistance-helper sets up or cleans up; patient completes activity. [place] assists only prior to or following the activity. 4-Supervision or Touching Assistance-helper provides verbal cues and/or touching/steadying and/or contact guard assistance as patient completes activity. Assistance may be provided throughout the activity or intermittently. 3-Partial/Moderate Assistance-helper does LESS THAN HALF the effort. [place] lifts, holds or supports trunk or limbs, but provides less than half the effort. 2-Substantial/Maximal Assistance-helper does MORE THAN HALF the effort. [place] lifts or holds trunk or limbs and provides more than half the effort. 2-Hoqkmmakc-qdtbay does ALL the effort. Patient does none of the effort to complete the activity. Or, the assistance of 2 or more helpers is required for the patient to complete the activity. If activity was not attempted, code reason: 7-Patient Refused. 9-Not Applicable-not attempted and the patient did not perform the activity before the current illness, exacerbation or injury. 10-Not Attempted due to Environmental Limitations-(lack of equipment, weather restraints, etc.). 88-Not Attempted due to Medical Conditions or Safety Concerns. Sit to Stand (QC): 4 Chair/Uan-os-Yzdyt Xfer(QC): 4 Patient required increased cues to push off from chair and to reach back for chair during performance of sit <-> stand transfers. Patient was able to self- correct. Weight Bearing Right Lower Extremity: Right Full Weight Bearing Left Lower Extremity: Left Full Weight Bearing Gait Training Does the Patient Walk?: Yes Distance: 150', 200', 100', 150' Walk 10 feet (QC): 4 Walk 50 ft with 2 Turns(QC): 4 Walk 150 ft (QC): 4 Gait Assistive Device: FWW Patient ambulated a greater cumulative distance, but required 2 rest breaks between ambulation duration. Patient was steady with gait, but did require cue to refrain from moving walker too far in front of him. Patient was able to maintain balance while pulling up his pants, which required brisk weight shifting. Wheelchair Training Does the Pt Use a Wheelchair?: No Exercises Seated Therapy Exercises: Long arc quads, Hip flexion, Hip abd/add (GTB, small ball) Seated Reps: 20 Assessment Current Status: Fair Progress Patient was able to demonstrate improved endurance with ambulation, despite needing rest breaks. Patient also demonstrates improved upright posture with ambulation, and less "melted" posture with gait. PT Short Term Goals Short Term Goals Time Frame: Jan 14, 2021 Roll Left & Right: 4 Sit to lyin Lying to sitting on side of be: 4 Sit to stand: 4 Chair/lil-jq-rcerf transfer: 4 Toilet transfer: 4 Car transfer: 4 Walk 10 feet: 4 Walk 50 feet with two turns: 4 Walk 150 feet: 4 Walking 10ft on uneven surface: 4 1 step (curb): 4 4 steps: 4 12 steps: 9 Picking up objects: 4 Does pt use a wc or scooter: No Wheel 50ft w/2 turns: 9 Wheel 150 feet: 9 Type: N/A PT Global Account Manager Goals Global Account Manager Goals PT [facility] Goals Time Frame: Jan 31, 2021 Roll Left & Right (QC): 6 Sit to Lying (QC): 6 Lying-Sitting on Side/Bed(QC): 6 Sit to Stand (QC): 6 Chair/Cuj-ox-Ravai Xfer(QC): 6 Toilet Transfer (QC): 6 Car Transfer (QC): 6 Does the Patient Walk: Yes Walk 10 feet (QC): 6 Walk 50ft with 2 Turns (QC): 6 Walk 150 ft (QC): 6 Walking 10ft on Uneven Surface: 6 1 Step (curb) (QC): 6 4 Steps (QC): 6 12 Steps (QC): 9 Picking up an Object (QC): 6 (Utilizing cane for assistance) Does the Pt use WC or Scooter?: No Wheel 50 feet with 2 turns (QC: 9 Type: N/A Wheel 150 feet: 9 Type: N/A PT Plan Problem List Problem List: Activity Tolerance, Functional Strength, Safety, Balance, Gait, Transfer, Bed Mobility, ROM Treatment/Plan Treatment Plan: Continue Plan of Care Treatment Plan: Bed Mobility, Concurrent Therapy, Education, Functional Activity Rohini, Functional Strength, Group Therapy, Gait, Safety, Therapeutic Exercise, Transfers Treatment Duration: Jan 24, 2021 Frequency: At least 5 of 7 days/Wk (IRF) Estimated Hrs Per Day: 1.5 hours per day Patient and/or Family Agrees t: Yes Safety Risks/Education Patient Education: Gait Training, Transfer Techniques, Correct Positioning, Safety Issues Teaching Recipient: Patient Teaching Methods: Demonstration, Discussion Response to Teaching: Verbalize Understanding, Return Demonstration, Reinforcement Needed Time/GCodes Time In: 1330 Time Out: 1400 Total Billed Treatment Time: 30 Total Billed Treatment 1 visit: GT: 30' LEXX MCNALLY PT Jan 05, 2021 14:27
[2021-01-05 17:46] VITALS: BP 149/67
[2021-01-05] MEDS: HYDROCHLOROTHIAZIDE 12.5 MG (HCTZ) CAP PO SCH (21:08)
[2021-01-05] MEDS: MELATONIN 3 MG TABLET PO PRN (21:08)
[2021-01-05] MEDS: ALLOPURINOL 300 MG (ZYLOPRIM) TAB PO SCH (21:08)
[2021-01-05] MEDS: LOSARTAN 50 MG (COZAAR) TAB PO SCH (21:08)
[2021-01-06] MEDS: inSUlin ASPART (NovoLOG) 1 UNIT/0.01 ML (CHARGE PER UNIT) SC SCH ×4 (05:31→20:38)
[2021-01-06 06:30] VITALS: BP 134/63
[2021-01-06] MEDS: RT-ALBUTEROL INHALER HFA (VENTOLIN HFA) 18 GM IH SCH (07:39)
--- NOTE | 2021-01-06 07:55 | Progress Note ---
Subjective Subjective Date Seen by Provider: Jan 06, 2021 Time Seen by Provider: 07:30 Pt seen and examined. Sleeping in bed, NAD. He denies chest pain, SOB, N/V. He says that he didn't sleep well and is tired. Review of Systems General: Fatigue, Malaise HEENT: No Head Aches, No Visual Changes Pulmonary: No Dyspnea, No Cough Cardiovascular: No: Chest Pain, Palpitations, Lt Headedness Gastrointestinal: No: Nausea, Vomiting, Abdominal Pain Genitourinary: No Dysuria, No Hematuria Musculoskeletal: No: neck pain, back pain Neurological: No: Weakness, Numbness Objective Exam Vital Signs Vital Signs - First Documented 01/01/21 01/01/21 01/01/21 14:18 15:00 18:21 Temp 36.6 Pulse 95 Resp 18 B/P (MAP) 160/70 (100) Pulse Ox 95 O2 Delivery Room Air FiO2 21 Capillary Refill : General Appearance: No Apparent Distress, WD/WN, Chronically ill, Obese Eyes: Bilateral Eye Normal Inspection, Bilateral Eye PERRL HEENT: PERRL/EOMI, Normal ENT Inspection, Pharynx Normal Neck: Full Range of Motion, Normal Inspection, Non Tender, Supple Respiratory: Chest Non Tender, Lungs Clear, No Accessory Muscle Use, No Respiratory Distress, Decreased Breath Sounds Cardiovascular: Regular Rate, Rhythm, No Edema, No Gallop, No JVD, No Murmur, Normal Peripheral Pulses, Other (2+ pitting edema BLE) Gastrointestinal: Normal Bowel Sounds, No Organomegaly, No Pulsatile Mass, Non Tender, Soft Rectal: Deferred Back: Normal Inspection, No CVA Tenderness, No Vertebral Tenderness Extremity: Normal Capillary Refill, Normal Inspection, Normal Range of Motion, Non Tender, No Calf Tenderness, Swelling (2+ pitting edema BLE) Neurologic/Psychiatric: Alert, Oriented x3, No Motor/Sensory Deficits, Normal Mood/Affect, Motor Weakness Skin: Normal Color, Warm/Dry Lymphatic: No Adenopathy Results Lab Laboratory Tests 01/05/21 12:25: Glucometer 141H 01/05/21 16:50: Glucometer 127H 01/05/21 20:32: Glucometer 148H 01/06/21 05:26: Glucometer 127H Assessment/Plan Assessment/Plan Assessment and Plan Debility - recent inpatient stay for pneumonia ROSS - CPAP HTN DM Continues to be unhappy with being in the IRF Continue PT/OT; pt should not require assistance with ambulation/ADL's D/C later this week Monitor VS/labs Problems: (1) Debility (2) Sepsis (3) Pneumonia (4) Dehydration (5) History of falling RITCHIE KLEIN MED STUDENT Jan 06, 2021 07:55
[2021-01-06] MEDS: metFORMIN 850 MG (GLUCOPHAGE) TAB PO SCH ×2 (08:28→17:14)
[2021-01-06] MEDS: CEFDINIR 300 MG (OMNICEF) CAP PO SCH ×2 (08:28→20:33)
[2021-01-06] MEDS: polyethylene glycoL POWDER 17 GM (MIRALAX) PACK PO SCH ×2 (08:30→19:34)
[2021-01-06] MEDS: DOCUSATE SODIUM 100 MG (COLACE) CAP PO SCH ×2 (08:30→19:33)
[2021-01-06] MEDS: SENNA W/DOCUSATE (SENOKOT S) TABLET PO SCH ×2 (08:31→19:34)
--- NOTE | 2021-01-06 09:08 | PM&R Progress Note ---
Subjective HPI/CC On Admission Date Seen by Provider: Jan 06, 2021 Time Seen by Provider: 09:15 Subjective/Events-last exam 01/06/21: Patient doing well DC planned for tomorrow Happy about DC Able to ambulate well with walker Incontinence noted 01/05/21: Pt did pretty well today Took shower on his own Falls a lot at home Labs are okay Incontinence is noted 01/04/21: Sleeping soundly Monitor closely Unhappy about being here at [facility] just had surgery 2.5 weeks ago and can't help him recuperate Incontinence noted 01/03/21: Can't understand why he can't go home Appears he has some underlying cognitive deficit Chair alarm on Incontinent at times 01/02/21: Patient seems upset to be here Already asking "how am I doing" of which I told him that he just arrived and we are assessing him at bedside who knows me from 2 weeks ago back surgery with Dr Branch Got up to go to bathroom on his own with his to help him and RN explained he needs to use call light IV abx will be transitioned to PO abx at his request Very difficult to manage his needs Review of Systems General: Fatigue Genitourinary: Incontinence Objective Exam Vital Signs Vital Signs Date Time Temp Pulse Resp B/P (MAP) Pulse Ox O2 Delivery O2 Flow Rate FiO2 01/06/21 20:30 Room Air 01/06/21 17:08 36.4 81 20 126/77 (93) 96 01/06/21 16:44 21 Capillary Refill : General Appearance: No Apparent Distress, WD/WN, Chronically ill, Obese HEENT: PERRL/EOMI, Normal ENT Inspection, Pharynx Normal Neck: Full Range of Motion, Normal Inspection, Non Tender, Supple Respiratory: Chest Non Tender, Lungs Clear, No Accessory Muscle Use, No Respiratory Distress, Decreased Breath Sounds Cardiovascular: Regular Rate, Rhythm, No Edema, No Gallop, No JVD, No Murmur, Normal Peripheral Pulses, Other (2+ pitting edema BLE) Gastrointestinal: Normal Bowel Sounds, No Organomegaly, No Pulsatile Mass, Non Tender, Soft Rectal: Deferred Back: Normal Inspection, No CVA Tenderness, No Vertebral Tenderness Extremity: Normal Capillary Refill, Normal Inspection, Normal Range of Motion, Non Tender, No Calf Tenderness, Swelling (2+ pitting edema BLE) Neurologic/Psychiatric: Alert, Oriented x3, No Motor/Sensory Deficits, Normal Mood/Affect, Motor Weakness Skin: Normal Color, Warm/Dry Lymphatic: No Adenopathy Results/Procedures Lab Patient resulted labs reviewed. FIM Transfers Therapy Code Descriptions/Definitions Functional [place] Measure: 0=Not Assessed/NA 4=Minimal Assistance 1=Total Assistance 5=Supervision or Setup 2=Maximal Assistance 6=Modified [place] 3=Moderate Assistance 7=Complete IndependenceSCALE: Activities may be completed with or without assistive devices. 2-Ajqydasqei-mkypbit completes the activity by him/herself with no assistance from a helper. 5-Set-up or Clean-up Assistance-helper sets up or cleans up; patient completes activity. [place] assists only prior to or following the activity. 4-Supervision or Touching Assistance-helper provides verbal cues and/or touching/steadying and/or contact guard assistance as patient completes activity. Assistance may be provided throughout the activity or intermittently. 3-Partial/Moderate Assistance-helper does LESS THAN HALF the effort. [place] lifts, holds or supports trunk or limbs, but provides less than half the effort. 2-Substantial/Maximal Assistance-helper does MORE THAN HALF the effort. [place] lifts or holds trunk or limbs and provides more than half the effort. 1-Eupjgdayu-kdnysp does ALL the effort. Patient does none of the effort to complete the activity. Or, the assistance of 2 or more helpers is required for the patient to complete the activity. If activity was not attempted, code reason: 7-Patient Refused. 9-Not Applicable-not attempted and the patient did not perform the activity before the current illness, exacerbation or injury. 10-Not Attempted due to Environmental Limitations-(lack of equipment, weather restraints, etc.). 88-Not Attempted due to Medical Conditions or Safety Concerns. Roll Left to Right (QC): 4 Sit to Lying (QC): 4 Sit to Stand (QC): 4 Chair/Ior-rp-Yogrm Xfer(QC): 4 Car Transfer (QC): 4 Gait Training Does the Patient Walk?: Yes Distance: 150', 200', 100', 150' Walk 10 feet (QC): 4 Walk 50 ft with 2 Turns(QC): 4 Walk 150 ft (QC): 4 Walking 10ft/uneven surface-QC: 4 Gait Persons Needed: 1 Gait Assistive Device: FWW Wheelchair Training Does the Pt Use a Wheelchair?: No Wheel 50 ft with 2 turns (QC): 9 Wheel 150 ft (QC): 9 Type of Wheelchair: N/A Stair Training #of Steps: 1 1 Step (curb) (QC): 4 4 Steps (QC): 88 12 Steps (QC): 88 Balance Picking up an Object (QC): 88 ADL-Treatment Eating (QC): 6 (IND) Oral Hygiene (QC): 4 (SBA standing at sink for safety, pt leaning over sink requiring cues to stand up straight.) Shower/Bathe Self (QC): 3 (Assist to wash BLE lower legs/feet and buttocks. Pt able to wash other parts seated on SC) Upper Body Dressing (QC): 3 (Min A with managing shirt down back, pt able to thread BUEs and overhead.) Lower Body Dressing (QC): 3 (Pt able to doff underwear, assist to thread BLEs into underwear, pt able to manage up, assist with managing up completely in the back. Assist to thread LLE into overalls, and assist with managing overalls up.) On/Off Footwear (QC): 2 (Max A overall to don shoes and socks after education of AE) Toileting Hygiene (QC): 4 (CGA for clothing management.) Toilet Transfer (QC): 4 Assessment/Plan Assessment and Plan Assess & Plan/Chief Complaint Assessment: Debility PNA on abx ROSS on CPAP HTN DM Falls Incontinence Plan: Abx HLIVF Monitor closely IRF protocol 01/02/21: Supportive care Abx change to PO 01/03/21: Monitor closely PO abx 01/04/21: Incontinence noted PO abx Monitor O2 01/05/21: Monitor progress Abx completing 01/06/21: DC planned Monitor closely (1) Debility (2) Sepsis Status: Acute (3) Pneumonia Status: Acute (4) Dehydration (5) History of falling Status: Acute JEANIE GALVIN DO Jan 06, 2021 09:08
--- NOTE | 2021-01-06 09:56 | Physical Therapy Daily Note ---
PT Daily Note-Current Subjective Patient reported no pain pre tx, and was seated upright in w/c. Patient also denied nausea complaints he had experienced previous day. Patient consented to PT. Appearance Patient seated upright in chair, with call button within reach and tray table placed in front of him. Mental Status Patient Orientation: Person, Place, Time, Normal For Age Transfers SCALE: Activities may be completed with or without assistive devices. 3-Ipfxwmeook-wtorgnc completes the activity by him/herself with no assistance from a helper. 5-Set-up or Clean-up Assistance-helper sets up or cleans up; patient completes activity. [place] assists only prior to or following the activity. 4-Supervision or Touching Assistance-helper provides verbal cues and/or touching/steadying and/or contact guard assistance as patient completes activity. Assistance may be provided throughout the activity or intermittently. 3-Partial/Moderate Assistance-helper does LESS THAN HALF the effort. [place] lifts, holds or supports trunk or limbs, but provides less than half the effort. 2-Substantial/Maximal Assistance-helper does MORE THAN HALF the effort. [place] lifts or holds trunk or limbs and provides more than half the effort. 2-Cffrsvafw-tjbtga does ALL the effort. Patient does none of the effort to complete the activity. Or, the assistance of 2 or more helpers is required for the patient to complete the activity. If activity was not attempted, code reason: 7-Patient Refused. 9-Not Applicable-not attempted and the patient did not perform the activity before the current illness, exacerbation or injury. 10-Not Attempted due to Environmental Limitations-(lack of equipment, weather restraints, etc.). 88-Not Attempted due to Medical Conditions or Safety Concerns. Sit to Stand (QC): 4 SBA x1 utilized. At beginning of treatment, patient donned pants and was able to maintain balance in room with required weight shift. Weight Bearing Right Lower Extremity: Right Full Weight Bearing Left Lower Extremity: Left Full Weight Bearing Gait Training Does the Patient Walk?: Yes Distance: 200' x3, 150' Walk 10 feet (QC): 4 Walk 50 ft with 2 Turns(QC): 4 Walk 150 ft (QC): 4 Gait Assistive Device: FWW SBA x1 utilized. Patient required 2 rest breaks (same amount as previous session), with ambulation and became mildly SOB after each gait attempt. Exercises NuStep Minutes: 16 NuStep Workload: 5 Treatments LE strengthening, gait training, endurance Assessment Current Status: Good Progress Patient continues to demonstrate improvement in exercise tolerance, and will continue to benefit from balance training to promote functional independence and safety with return to home. PT Short Term Goals Short Term Goals Time Frame: Jan 14, 2021 Roll Left & Right: 4 Sit to lyin Lying to sitting on side of be: 4 Sit to stand: 4 Chair/vww-rx-xcyvs transfer: 4 Toilet transfer: 4 Car transfer: 4 Walk 10 feet: 4 Walk 50 feet with two turns: 4 Walk 150 feet: 4 Walking 10ft on uneven surface: 4 1 step (curb): 4 4 steps: 4 12 steps: 9 Picking up objects: 4 Does pt use a wc or scooter: No Wheel 50ft w/2 turns: 9 Wheel 150 feet: 9 Type: N/A PT Retirement Goals Clinic Office Assistant Goals PT Retirement Goals Time Frame: Jan 31, 2021 Roll Left & Right (QC): 6 Sit to Lying (QC): 6 Lying-Sitting on Side/Bed(QC): 6 Sit to Stand (QC): 6 Chair/Dzh-sq-Ifvlq Xfer(QC): 6 Toilet Transfer (QC): 6 Car Transfer (QC): 6 Does the Patient Walk: Yes Walk 10 feet (QC): 6 Walk 50ft with 2 Turns (QC): 6 Walk 150 ft (QC): 6 Walking 10ft on Uneven Surface: 6 1 Step (curb) (QC): 6 4 Steps (QC): 6 12 Steps (QC): 9 Picking up an Object (QC): 6 (Utilizing cane for assistance) Does the Pt use WC or Scooter?: No Wheel 50 feet with 2 turns (QC: 9 Type: N/A Wheel 150 feet: 9 Type: N/A PT Plan Problem List Problem List: Activity Tolerance, Functional Strength, Safety, Balance, Gait, Transfer, Bed Mobility, ROM Treatment/Plan Treatment Plan: Continue Plan of Care Treatment Plan: Bed Mobility, Concurrent Therapy, Education, Functional Activity Rohini, Functional Strength, Group Therapy, Gait, Safety, Therapeutic Exercise, Transfers Treatment Duration: Jan 24, 2021 Frequency: At least 5 of 7 days/Wk (IRF) Estimated Hrs Per Day: 1.5 hours per day Patient and/or Family Agrees t: Yes Safety Risks/Education Patient Education: Gait Training, Transfer Techniques, Correct Positioning, Safety Issues Teaching Recipient: Patient Teaching Methods: Demonstration, Discussion Response to Teaching: Verbalize Understanding, Return Demonstration Time/GCodes Time In: 0900 Time Out: 1000 Total Billed Treatment Time: 60 Total Billed Treatment 1 visit: FA 44' EX 16' LEXX MCNALLY PT Jan 06, 2021 09:56
--- NOTE | 2021-01-06 11:13 | Occupational Ther Daily Note ---
OT Current Status-Daily Note Subjective Pt agreeable to OT tx wtih focus on ADLs. Reports no concerns wtih ability to complete ADLs upon discharge Mental Status/Objective Patient Orientation: Person, Place, Time, Situation ADL-Treatment Therapy Code Descriptions/Definitions Functional [place] Measure: 0=Not Assessed/NA 4=Minimal Assistance 1=Total Assistance 5=Supervision or Setup 2=Maximal Assistance 6=Modified [place] 3=Moderate Assistance 7=Complete IndependenceSCALE: Activities may be completed with or without assistive devices. 0-Uilazrrtvc-srrkqjw completes the activity by him/herself with no assistance from a helper. 5-Set-up or Clean-up Assistance-helper sets up or cleans up; patient completes activity. [place] assists only prior to or following the activity. 4-Supervision or Touching Assistance-helper provides verbal cues and/or touching/steadying and/or contact guard assistance as patient completes activity. Assistance may be provided throughout the activity or intermittently. 3-Partial/Moderate Assistance-helper does LESS THAN HALF the effort. [place] l ifts, holds or supports trunk or limbs, but provides less than half the effort. 2-Substantial/Maximal Assistance-helper does MORE THAN HALF the effort. [place] lifts or holds trunk or limbs and provides more than half the effort. 8-Wcfbdugvu-rtfofh does ALL the effort. Patient does none of the effort to complete the activity. Or, the assistance of 2 or more helpers is required for t he patient to complete the activity. If activity was not attempted, code reason: 7-Patient Refused. 9-Not Applicable-not attempted and the patient did not perform the activity before the current illness, exacerbation or injury. 10-Not Attempted due to Environmental Limitations-(lack of equipment, weather restraints, etc.). 88-Not Attempted due to Medical Conditions or Safety Concerns. Eating (QC): 6 (Per pt report and based on clinical judgement) Oral Hygiene (QC): 6 (seated in w/c.) Bathing Location: L Arm, R Arm, L Upper Leg, R Upper Leg, L Lower Leg (includin g foot), R Lower Leg (including foot), Chest, Abdomen, Buttocks, Perineal Area Shower/Bathe Self (QC): 6 (IND, pt able to wash/dry all parts using long handled sponge as needed. Stood at [facility] to manage pericare and wash buttocks.) Upper Body Dressing (QC): 6 (IND) Lower Body Dressing (QC): 6 (Pt able to doff/don pants/underwear using cane to assist as needed.) On/Off Footwear: 3 (Pt doffed using cane, min A with donning socks using sock aide.) Toileting Hygiene (QC): 6 (IND, pt able to manage clothing and perform hygiene.) Toilet Transfer (QC): 6 (IND on/off toilet.) Other Treatment Pt seated in w/c, used FWW to ambulate to bathroom to complete toileting. Pt doffed LE clothing at toilet, completed toileting, and then used FWW to transfer to SC. Pt completed shower, then transferred to w/c to complete oral care and shaving at sink. Pt donned clothes at w/c, min A with donning socks using sock aide. Post tx, pt seated in w/c, call light in reach and all needs met. Education OT Patient Education: Correct positioning, Modified ADL techniques, Progress toward Goal/Update tx plan, Purpose of tx/functional activities, Rehab process, Use of adapted equipment Teaching Recipient: Patient Teaching Methods: Discussion Response to Teaching: Verbalize Understanding OT Short Term Goals Short Term Goals Time Frame: Jan 15, 2021 Shower/bathe self: 4 Upper body dressin Lower body dressin OT Direct Mail Coordinator Goals Senior Living Goals Time Frame: Jan 30, 2021 Eating (QC): 6 (met) Oral Hygiene (QC): 6 (met) Toileting Hygiene (QC): 6 (met) Shower/Bathe Self (QC): 6 (met) Upper Body Dressing (QC): 6 (met) Lower Body Dressing (QC): 6 (met) On/Off Footwear (QC): 3 (met) Additional Goals: 1-Demonstrate ADL Tasks, 2-Verbalize Understanding, 3- ImproveStrength/Rohini 1=Demonstrate adherence to instructed precautions during ADL tasks. 2=Patient will verbalize/demonstrate understanding of assistive devices/modifications for ADL. 3=Patient will improve strength/tolerance for activity to enable patient to perform ADL's. OT Education/Plan Problem List/Assessment Assessment: Decreased Activ Tolerance, Decreased UE Strength, Impaired I ADL's Discharge Recommendations Plan/Recommendations: Continue POC Treatment Plan/Plan of Care Patient would benefit from OT for education, treatment and training to promote independence in ADL's, mobility, safety and/or upper extremity function for ADL's. Plan of Care: ADL Retraining, Functional Mobility, Group Exercise/Act as Ind, UE Funct Exercise/Act Treatment Duration: Jan 30, 2021 Frequency: At least 5 of 7 days/Wk (IRF) Estimated Hrs Per Day: 1.5 hours per day Rehab Potential: Good Time/GCodes Start Time: 10:00 Stop Time: 11:00 Total Time Billed (hr/min): 60 Billed Treatment Time 1, ADL 4 MELISSA ARIAS OT Jan 06, 2021 11:13
--- NOTE | 2021-01-06 13:38 | Occupational Ther Daily Note ---
OT Current Status-Daily Note Subjective Pt seated in recliner, agreeable to OT tx. ADL-Treatment Therapy Code Descriptions/Definitions Functional [place] Measure: 0=Not Assessed/NA 4=Minimal Assistance 1=Total Assistance 5=Supervision or Setup 2=Maximal Assistance 6=Modified [place] 3=Moderate Assistance 7=Complete IndependenceSCALE: Activities may be completed with or without assistive devices. 7-Lkywwubpah-jyxpevb completes the activity by him/herself with no assistance from a helper. 5-Set-up or Clean-up Assistance-helper sets up or cleans up; patient completes activity. [place] assists only prior to or following the activity. 4-Supervision or Touching Assistance-helper provides verbal cues and/or touching/steadying and/or contact guard assistance as patient completes activity. Assistance may be provided throughout the activity or intermittently. 3-Partial/Moderate Assistance-helper does LESS THAN HALF the effort. [place] lifts, holds or supports trunk or limbs, but provides less than half the effort. 2-Substantial/Maximal Assistance-helper does MORE THAN HALF the effort. [place] lifts or holds trunk or limbs and provides more than half the effort. 9-Ctlrunlsj-mnnlxp does ALL the effort. Patient does none of the effort to complete the activity. Or, the assistance of 2 or more helpers is required for the patient to complete the activity. If activity was not attempted, code reason: 7-Patient Refused. 9-Not Applicable-not attempted and the patient did not perform the activity before the current illness, exacerbation or injury. 10-Not Attempted due to Environmental Limitations-(lack of equipment, weather restraints, etc.). 88-Not Attempted due to Medical Conditions or Safety Concerns. Other Treatment OT tx with focus on increasing BUE strength and functional activity tolerance. Pt completed x15 reps, 5 exercises BUE with moderate resistance theraband. Pt required minimal skilled verbal cues for proper technique. Pt then propelled w/c around [facility] common area. He required increased time with all activities. Post tx, pt seated in w/c in room, call light in reach and all needs met. Education OT Patient Education: Correct positioning, Energy conservation, Exercise program, Modified ADL techniques, Progress toward Goal/Update tx plan, Purpose of tx/functional activities Teaching Recipient: Patient Teaching Methods: Discussion Response to Teaching: Verbalize Understanding OT Short Term Goals Short Term Goals Time Frame: Jan 15, 2021 Shower/bathe self: 4 Upper body dressin Lower body dressin OT Residential Goals Coating Machine Operator Helper Goals Time Frame: Jan 30, 2021 Eating (QC): 6 (met) Oral Hygiene (QC): 6 (met) Toileting Hygiene (QC): 6 (met) Shower/Bathe Self (QC): 6 (met) Upper Body Dressing (QC): 6 (met) Lower Body Dressing (QC): 6 (met) On/Off Footwear (QC): 3 (met) Additional Goals: 1-Demonstrate ADL Tasks, 2-Verbalize Understanding, 3- ImproveStrength/[place]oh[place] 1=Demonstrate adherence to instructed precautions during ADL tasks. 2=Patient will verbalize/demonstrate understanding of assistive devices/modifications for ADL. 3=Patient will improve strength/tolerance for activity to enable patient to perform ADL's. OT Education/Plan Problem List/Assessment Assessment: Decreased Activ Tolerance, Decreased UE Strength, Impaired I ADL's Discharge Recommendations Plan/Recommendations: Continue POC Treatment Plan/Plan of Care Patient would benefit from OT for education, treatment and training to promote independence in ADL's, mobility, safety and/or upper extremity function for ADL's. Plan of Care: ADL Retraining, Functional Mobility, Group Exercise/Act as Ind, UE Funct Exercise/Act Treatment Duration: Jan 30, 2021 Frequency: At least 5 of 7 days/Wk (IRF) Estimated Hrs Per Day: 1.5 hours per day Rehab Potential: Good Time/GCodes Start Time: 13:00 Stop Time: 13:30 Total Time Billed (hr/min): 30 Billed Treatment Time 1, EX 2 MELISSA ARIAS OT Jan 06, 2021 13:38
--- NOTE | 2021-01-06 14:29 | Physical Therapy Daily Note ---
PT Daily Note-Current Subjective Patient reported no pain pre tx, and was seated upright in w/c. Patient consented to PT. Appearance Patient seated upright in w/c, with tray table nearby and call button within reach post tx. Mental Status Patient Orientation: Person, Place, Time, Normal For Age Transfers SCALE: Activities may be completed with or without assistive devices. 3-Totxbohixs-woafbvw completes the activity by him/herself with no assistance from a helper. 5-Set-up or Clean-up Assistance-helper sets up or cleans up; patient completes activity. Moriah assists only prior to or following the activity. 4-Supervision or Touching Assistance-helper provides verbal cues and/or touching/steadying and/or contact guard assistance as patient completes activity. Assistance may be provided throughout the activity or intermittently. 3-Partial/Moderate Assistance-helper does LESS THAN HALF the effort. Moriah lifts, holds or supports trunk or limbs, but provides less than half the effort. 2-Substantial/Maximal Assistance-helper does MORE THAN HALF the effort. Moriah lifts or holds trunk or limbs and provides more than half the effort. 5-Tgmyzxtvx-ckjzwk does ALL the effort. Patient does none of the effort to complete the activity. Or, the assistance of 2 or more helpers is required for the patient to complete the activity. If activity was not attempted, code reason: 7-Patient Refused. 9-Not Applicable-not attempted and the patient did not perform the activity before the current illness, exacerbation or injury. 10-Not Attempted due to Environmental Limitations-(lack of equipment, weather restraints, etc.). 88-Not Attempted due to Medical Conditions or Safety Concerns. Roll Left & Right (QC): 6 Sit to Lying (QC): 4 Lying to Sitting/Side of Bed(Q: 4 Sit to Stand (QC): 4 Chair/Pkr-ip-Bvcbt Xfer(QC): 4 Toilet Transfer (QC): 4 Car Transfer (QC): 4 SBA x1 utilized Weight Bearing Right Lower Extremity: Right Full Weight Bearing Left Lower Extremity: Left Full Weight Bearing Gait Training Does the Patient Walk?: Yes Distance: 150', 400' Walk 10 feet (QC): 4 Walk 50 ft with 2 Turns(QC): 4 Walk 150 ft (QC): 4 Walking 10ft/uneven surface-QC: 4 Gait Persons Needed: 1 Gait Assistive Device: FWW SBA x1 utilized. Patient did not demonstrate any alexis LOB and maintained steady pace. Wheelchair Training Does the Pt Use a Wheelchair?: No Stair Training Stair Training: Handrails/: 2 handrails #of Steps: 8 1 Step (curb) (QC): 4 4 Steps (QC): 4 12 Steps (QC): 88 Stairs: Pattern: Reciprocal SBA x1 utilized. Balance Picking up an Object (QC): 6 Special Test Comments Patient able to picking tech items independently with use of technical architect. Treatments Focused on assessment of functional mobility, gait endurance, and balance. Placed cones around room and practiced turning around with patient while using walker. Patient did not lose balance with activity, and demonstrated fair pacing with turns. Assessment Current Status: Good Progress Patient continues to demonstrate functional improvements in overall gait and endurance. PT Short Term Goals Short Term Goals Time Frame: Jan 14, 2021 Roll Left & Right: 4 Sit to lyin Lying to sitting on side of be: 4 Sit to stand: 4 Chair/gkl-ed-qmmbq transfer: 4 Toilet transfer: 4 Car transfer: 4 Walk 10 feet: 4 Walk 50 feet with two turns: 4 Walk 150 feet: 4 Walking 10ft on uneven surface: 4 1 step (curb): 4 4 steps: 4 12 steps: 9 Picking up objects: 4 Does pt use a wc or scooter: No Wheel 50ft w/2 turns: 9 Wheel 150 feet: 9 Type: N/A PT Digital Marketing Analyst Goals Prison Goals PT Prison Goals Time Frame: Jan 31, 2021 Roll Left & Right (QC): 6 Sit to Lying (QC): 6 Lying-Sitting on Side/Bed(QC): 6 Sit to Stand (QC): 6 Chair/Ojb-lw-Qtbax Xfer(QC): 6 Toilet Transfer (QC): 6 Car Transfer (QC): 6 Does the Patient Walk: Yes Walk 10 feet (QC): 6 Walk 50ft with 2 Turns (QC): 6 Walk 150 ft (QC): 6 Walking 10ft on Uneven Surface: 6 1 Step (curb) (QC): 6 4 Steps (QC): 6 12 Steps (QC): 9 Picking up an Object (QC): 6 (Utilizing cane for assistance) Does the Pt use WC or Scooter?: No Wheel 50 feet with 2 turns (QC: 9 Type: N/A Wheel 150 feet: 9 Type: N/A PT Plan Problem List Problem List: Activity Tolerance, Functional Strength, Safety, Balance, Gait, Transfer, Bed Mobility, ROM Treatment/Plan Treatment Plan: Continue Plan of Care Treatment Plan: Bed Mobility, Concurrent Therapy, Education, Functional Activity Rohini, Functional Strength, Group Therapy, Gait, Safety, Therapeutic Exercise, Transfers Treatment Duration: Jan 24, 2021 Frequency: At least 5 of 7 days/Wk (IRF) Estimated Hrs Per Day: 1.5 hours per day Patient and/or Family Agrees t: Yes Safety Risks/Education Patient Education: Gait Training, Transfer Techniques, Steps, Correct Positioning, Safety Issues Teaching Recipient: Patient Teaching Methods: Demonstration, Discussion Response to Teaching: Verbalize Understanding, Return Demonstration Time/GCodes Time In: 1330 Time Out: 1400 Total Billed Treatment Time: 30 Total Billed Treatment 1 visit: FA x2: 30' LEXX MCNALLY PT Jan 06, 2021 14:29
[2021-01-06 17:08] VITALS: BP 126/77
[2021-01-06] MEDS: MELATONIN 3 MG TABLET PO PRN (20:33)
[2021-01-06] MEDS: LOSARTAN 50 MG (COZAAR) TAB PO SCH (20:33)
[2021-01-06] MEDS: ALLOPURINOL 300 MG (ZYLOPRIM) TAB PO SCH (20:33)
[2021-01-06] MEDS: HYDROCHLOROTHIAZIDE 12.5 MG (HCTZ) CAP PO SCH (20:33)
[2021-01-07] MEDS ORDERED: CEFD300C3 PO (05:34)
[2021-01-07] MEDS ORDERED: INSU100I34 SC (05:34)
--- NOTE | 2021-01-07 05:35 | D/C HH Face to Face Order ---
D/C Face to Face Orders Reconcile Patient Problems Problems Reviewed?: Yes Instructions for Patient Via [facility], Patient Instructions/FollowUp: Dr Crawford 1 week Physician to follow Patient: Ty Discharge Diet for Home: ADA Diet Patient Problems: PNA Debility Patient Data-Allergies,Ht & Wt Patient Allergies: Coded Allergies: No Known Drug Allergies (Unverified , 01/02/11) Home Health Need/Face to Face Date of Face to Face: Jan 07, 2021 Clinical Findings: Generalized weakness and fatigue, Immune-compromised, Instability, Muscle weakness, Pain with ambulation, Shortness of breath, Unsteady gait I have seen Pt lrto-su-kubg: Yes Discharged To: Home Diagnosis/Conditions: PNA Debility Patient is Homebound due to: CognItive deficits, [place] fall risk due to ins tabilty, Muscle weakness Homebound Status Due to the above stated illness, injury or surgical procedure (medical condition or diagnosis) and associated clinical findings, the patient is homebound because of his/her inability to leave home except with aid of a supportive device and/or person AND leaving the home requires a considerable and taxing effort or is medically contraindicated. Pt req the following assistanc: Walker Home Health Nursing Orders Home Health Services Order: Nursing Services, Automatic Door Mechanic-Evaluate & Treat, Physical Therapy-Evaluate & Treat Certify Stmt I certify that this patient is under my care and that I, a nurse practitioner or a physician; a library clerical assistant working with me, had a face to face encounter that - meets the physician face to face encounter requirements with this patient as dated. JEANIE GALVIN DO Jan 07, 2021 05:35
[2021-01-07] MEDS: inSUlin ASPART (NovoLOG) 1 UNIT/0.01 ML (CHARGE PER UNIT) SC SCH (05:36)
--- NOTE | 2021-01-07 05:36 | Discharge Summary ---
Diagnosis/Chief Complaint Date of Admission Jan 01, 2021 at 14:09 Date of Discharge Discharge Date: Jan 07, 2021 Discharge Diagnosis Assessment: Debility PNA on abx ROSS on CPAP HTN DM Falls Incontinence Plan: Abx HLIVF Monitor closely IRF protocol 01/02/21: Supportive care Abx change to PO 01/03/21: Monitor closely PO abx 01/04/21: Incontinence noted PO abx Monitor O2 01/05/21: Monitor progress Abx completing 01/06/21: DC planned Monitor closely (1) Debility (2) Sepsis Status: Acute (3) Pneumonia Status: Acute (4) Dehydration (5) History of falling Status: Acute Discharge Summary Discharge Physical Examination Allergies: Coded Allergies: No Known Drug Allergies (Unverified , 01/02/11) Vitals & I&Os Vital Signs Date Time Temp Pulse Resp B/P (MAP) Pulse Ox O2 Delivery O2 Flow Rate FiO2 01/07/21 10:30 36.4 85 16 145/77 98 Room Air 01/06/21 16:44 21 General Appearance: Alert, Oriented X3, Cooperative Respiratory: Clear to Auscultation Cardiovascular: Regular Rate Neuro: Normal Gait, Normal Speech, Strength at 5/5 X4 Ext Psych/Mental Status: Mental Status NL Hospital Course Was the Problem List Reviewed?: Yes Hospital course: Pt had an uneventful hospital course when he was admitted for debility following pneumonia, he was able to transition from IV antibiotics to oral antibiotics and overall he did really well in general. He was able to participate in all therapies, he finished his antibiotics except for four additional doses, PCP evaluated the Pt and he was deemed stable for discharge. Labs (last 24 hrs) Laboratory Tests 01/01/21 18:00: Glucometer 176H 01/01/21 21:24: Glucometer 185H 01/02/21 04:49: Glucometer 77 01/02/21 05:09: White Blood Count 6.6, Red Blood Count 4.24L, Hemoglobin 12.7L, Hematocrit 38L, Mean Corpuscular Volume 90, Mean Corpuscular Hemoglobin 30, Mean Corpuscular Hemoglobin Concent 33, Red Cell Distribution Width 12.9, Platelet Count 246, Mean Platelet Volume 10.0, Immature Granulocyte % (Auto) 0, Neutrophils (%) (Auto) 64, Lymphocytes (%) (Auto) 19, Monocytes (%) (Auto) 10, Eosinophils (%) (Auto) 6, Basophils (%) (Auto) 1, Neutrophils # (Auto) 4.2, Lymphocytes # (Auto) 1.2, Monocytes # (Auto) 0.6, Eosinophils # (Auto) 0.4H, Basophils # (Auto) 0.1, Immature Granulocyte # (Auto) 0.0, Sodium Level 138, Potassium Level 3.6, Chloride Level 104, Carbon Dioxide Level 22, Anion Gap 12, Blood Urea Nitrogen 17, Creatinine 1.17, Estimat Glomerular Filtration Rate > 60, BUN/Creatinine Ratio 15, Glucose Level 99, Calcium Level 8.9, Corrected Calcium 9.3, Total Bilirubin 0.9, Aspartate Amino Transf (AST/SGOT) 29, Alanine Aminotransferase (ALT/SGPT) 41, Alkaline Phosphatase 68, Total Protein 6.8, Albumin 3.5 01/02/21 11:42: Glucometer 94 01/02/21 16:17: Glucometer 160H 01/02/21 19:59: Glucometer 180H 01/03/21 05:56: Glucometer 78 01/03/21 11:03: Glucometer 126H 01/03/21 15:53: Glucometer 139H 01/03/21 20:14: Glucometer 170H 01/04/21 06:14: Glucometer 114H 01/04/21 10:51: Glucometer 195H 01/04/21 16:25: Glucometer 123H 01/04/21 20:37: Glucometer 153H 01/05/21 05:45: White Blood Count 8.2, Red Blood Count 4.34, Hemoglobin 12.9L, Hematocrit 39L, Mean Corpuscular Volume 90, Mean Corpuscular Hemoglobin 30, Mean Corpuscular Hemoglobin Concent 33, Red Cell Distribution Width 12.7, Platelet Count 366, Mean Platelet Volume 10.0, Immature Granulocyte % (Auto) 0, Neutrophils (%) (Auto) 68, Lymphocytes (%) (Auto) 18, Monocytes (%) (Auto) 6, Eosinophils (%) (Auto) 6, Basophils (%) (Auto) 1, Neutrophils # (Auto) 5.6, Lymphocytes # (Auto) 1.5, Monocytes # (Auto) 0.5, Eosinophils # (Auto) 0.5H, Basophils # (Auto) 0.1, Immature Granulocyte # (Auto) 0.0, Sodium Level 139, Potassium Level 3.7, Chloride Level 104, Carbon Dioxide Level 24, Anion Gap 11, Blood Urea Nitrogen 20H, Creatinine 1.23, Estimat Glomerular Filtration Rate 58, BUN/Creatinine Ratio 16, Glucose Level 126H, Calcium Level 9.3, Corrected Calcium 9.5, Total Bilirubin 0.8, Aspartate Amino Transf (AST/SGOT) 26, Alanine Aminotransferase (ALT/SGPT) 38, Alkaline Phosphatase 66, Total Protein 7.0, Albumin 3.7 01/05/21 12:25: Glucometer 141H 01/05/21 16:50: Glucometer 127H 01/05/21 20:32: Glucometer 148H 01/06/21 05:26: Glucometer 127H 01/06/21 11:02: Glucometer 139H 01/06/21 16:15: Glucometer 137H 01/06/21 20:34: Glucometer 137H 01/07/21 05:34: Glucometer 116H Pending Labs Laboratory Tests 01/01/21 18:00: Glucometer 176 01/01/21 21:24: Glucometer 185 01/02/21 04:49: Glucometer 77 01/02/21 05:09: White Blood Count 6.6, Red Blood Count 4.24, Hemoglobin 12.7, Hematocrit 38, Mean Corpuscular Volume 90, Mean Corpuscular Hemoglobin 30, Mean Corpuscular Hemoglobin Concent 33, Red Cell Distribution Width 12.9, Platelet Count 246, Mean Platelet Volume 10.0, Immature Granulocyte % (Auto) 0, Neutrophils (%) (Auto) 64, Lymphocytes (%) (Auto) 19, Monocytes (%) (Auto) 10, Eosinophils (%) (Auto) 6, Basophils (%) (Auto) 1, Neutrophils # (Auto) 4.2, Lymphocytes # (Auto) 1.2, Monocytes # (Auto) 0.6, Eosinophils # (Auto) 0.4, Basophils # (Auto) 0.1, Immature Granulocyte # (Auto) 0.0, Sodium Level 138, Potassium Level 3.6, Chloride Level 104, Carbon Dioxide Level 22, Anion Gap 12, Blood Urea Nitrogen 17, Creatinine 1.17, Estimat Glomerular Filtration Rate > 60, BUN/Creatinine Ratio 15, Glucose Level 99, Calcium Level 8.9, Corrected Calcium 9.3, Total Bilirubin 0.9, Aspartate Amino Transf (AST/SGOT) 29, Alanine Aminotransferase (ALT/SGPT) 41, Alkaline Phosphatase 68, Total Protein 6.8, Albumin 3.5 01/02/21 11:42: Glucometer 94 01/02/21 16:17: Glucometer 160 01/02/21 19:59: Glucometer 180 01/03/21 05:56: Glucometer 78 01/03/21 11:03: Glucometer 126 01/03/21 15:53: Glucometer 139 01/03/21 20:14: Glucometer 170 01/04/21 06:14: Glucometer 114 01/04/21 10:51: Glucometer 195 01/04/21 16:25: Glucometer 123 01/04/21 20:37: Glucometer 153 01/05/21 05:45: White Blood Count 8.2, Red Blood Count 4.34, Hemoglobin 12.9, Hematocrit 39, Mean Corpuscular Volume 90, Mean Corpuscular Hemoglobin 30, Mean Corpuscular Hemoglobin Concent 33, Red Cell Distribution Width 12.7, Platelet Count 366, Mean Platelet Volume 10.0, Immature Granulocyte % (Auto) 0, Neutrophils (%) (Auto) 68, Lymphocytes (%) (Auto) 18, Monocytes (%) (Auto) 6, Eosinophils (%) (Auto) 6, Basophils (%) (Auto) 1, Neutrophils # (Auto) 5.6, Lymphocytes # (Auto) 1.5, Monocytes # (Auto) 0.5, Eosinophils # (Auto) 0.5, Basophils # (Auto) 0.1, Immature Granulocyte # (Auto) 0.0, Sodium Level 139, Potassium Level 3.7, Chloride Level 104, Carbon Dioxide Level 24, Anion Gap 11, Blood Urea Nitrogen 20, Creatinine 1.23, Estimat Glomerular Filtration Rate 58, BUN/Creatinine Ratio 16, Glucose Level 126, Calcium Level 9.3, Corrected Calcium 9.5, Total Bilirubin 0.8, Aspartate Amino Transf (AST/SGOT) 26, Alanine Aminotransferase (ALT/SGPT) 38, Alkaline Phosphatase 66, Total Protein 7.0, Albumin 3.7 01/05/21 12:25: Glucometer 141 01/05/21 16:50: Glucometer 127 01/05/21 20:32: Glucometer 148 01/06/21 05:26: Glucometer 127 01/06/21 11:02: Glucometer 139 01/06/21 16:15: Glucometer 137 01/06/21 20:34: Glucometer 137 01/07/21 05:34: Glucometer 116 Discharge Home Medications: Active Scripts Active Cefdinir 300 Mg Capsule 300 Mg PO BID Basaglar Kwikpen U-100 (Insulin Glargine,Hum.rec.anlog) 100 Unit/1 Ml Insuln.pen 50 Units SC HS 30 Days Reported Lotemax (Loteprednol Etabonate) 5 Gm Drops.gel 1 Drop OD HS Losartan-Hctz 50-12.5 mg Tab (Losartan/Hydrochlorothiazide) 1 Each Tablet 1 Ea PO HS Metformin HCl 850 Mg Tablet 425 Mg PO BID TAKES OF AN 850MG TAB Allopurinol 300 Mg Tablet 300 Mg PO HS Atorvastatin Calcium 20 Mg Tablet 20 Mg PO HS Centrum Silver Men Tablet (Multivit-Min/FA/Lycopen/Lutein) 1 Each Tablet 1 Each PO DAILY Instructions to patient/family Please see electronic discharge instructions given to patient. Diagnosis/Problems Diagnosis/Problems (1) Debility (2) Sepsis Status: Acute (3) Pneumonia Status: Acute (4) Dehydration (5) History of falling Status: Acute JEANIE GALVIN DO Jan 07, 2021 05:36
[2021-01-07 06:41] VITALS: BP 145/77
[2021-01-07] MEDS: DOCUSATE SODIUM 100 MG (COLACE) CAP PO SCH (08:08)
[2021-01-07] MEDS: polyethylene glycoL POWDER 17 GM (MIRALAX) PACK PO SCH (08:08)
[2021-01-07] MEDS: SENNA W/DOCUSATE (SENOKOT S) TABLET PO SCH (08:08)
[2021-01-07] MEDS: CEFDINIR 300 MG (OMNICEF) CAP PO SCH (09:08)
[2021-01-07] MEDS: metFORMIN 850 MG (GLUCOPHAGE) TAB PO SCH (09:08)
[2021-01-07 10:30] VITALS: BP 145/77
--- NOTE | 2021-01-07 12:46 | Therapy Team Discharge Summary ---
Therapy Discharge Summary Discharge Recommendations Date of Discharge Physical Therapy Patient came to rehab with PNA, sepsis, dehydration. Upon evaluation patient performed bed mobility and transfers with CGA, car transfer CGA, ambulated 200' with a rolling walker with CGA (including 50' with at lest 2 turns of 90 degrees and 10' over an uneven surface), and went up and down 1 step using a rolling walker with CGA. Patient has been performing bed mobility and transfer training, balance and endurance training, functional strengthening, stair training, gait training, and education. Patient has made some progress but has not met any of his group home goals except for picking up an object from the floor. Now, patient performs bed mobility with independence, supine <-> sit with SBA, sit <-> stand with SBA, transfers and car transfer with SBA, ambulates 400' with a rolling walker with SBA (including 50' with at least 2 turns of 90 degrees and 10' over an uneven surface), and can go up and down 8 steps using 2 handrails with SBA, and can pickers material handlers an object from the floor with independence using a cereal maker. Patient is discharging from this facility today and will be discharged from PT at this time. Occupational Therapy Decreased Activ Tolerance, Decreased UE Strength, Impaired I ADL's PT Group Home Goals Oil Processing Technician Goals PT Oil Processing Technician Goals Time Frame: Jan 31, 2021 Roll Left to Right (QC): 6 Sit to Lying (QC): 6 Lying-Sitting on Side/Bed(QC): 6 Sit to Stand (QC): 6 Chair/Dfc-bs-Zcgoh Xfer(QC): 6 Car Transfer (QC): 6 Does the Patient Walk: Yes Walk 10 feet (QC): 6 Walk 10ft-Uneven Surface(QC): 6 Walk 50ft with 2 Turns (QC): 6 Walk 150 ft (QC): 6 Does the Pt use WC or Scooter?: No Wheel 50 feet with 2 turns (QC: 9 1 Step (curb) (QC): 6 4 Steps (QC): 6 12 Steps (QC): 9 Picking up an Object (QC): 6 (Utilizing cane for assistance) OT Group Home Goals Group Home Goals Time Frame: Jan 30, 2021 Eating (QC): 6 (met) Oral Hygiene (QC): 6 (met) Shower/Bathe Self (QC): 6 (met) Upper Body Dressing (QC): 6 (met) Lower Body Dressing (QC): 6 (met) On/Off Footwear (QC): 3 (met) Toileting Hygiene (QC): 6 (met) Toilet/Commode Transfer (QC): 6 Additional Goals: 1-Demonstrate ADL Tasks, 2-Verbalize Understanding, 3- ImproveStrength/Rohini 1=Demonstrate adherence to instructed precautions during ADL tasks. 2=Patient will verbalize/demonstrate understanding of assistive devices/modifications for ADL. 3=Patient will improve strength/tolerance for activity to enable patient to perform ADL's. LEXX MCNALLY PT Jan 07, 2021 12:46
--- NOTE | 2021-01-08 09:57 | Therapy Team Discharge Summary ---
Therapy Discharge Summary Discharge Recommendations Date of Discharge Jan 07, 2021 at 10:30 Therapy D/C Recommendations: Occupational Therapy Home Care Occupational Therapy Pt admitted to ARU with debility. At OF, pt was independent with most ADLs, requiring assistance with donning footwear and sometimes assist with donning overalls. Upon initial evaluation, pt was independent with feeding, required min A with oral care, showering, upper/lower body dressing, and toileting, total assist with footwear. OT txs focused on increasing safety and independence with ADLs and functional mobility, increasing BUE strength and activity tolerance, and education on AE for LE dressing. At discharge, pt was independent with feeding, oral care, [id number], upper/lower body dressing and toileting, required min A with footwear. Pt made good progress towards goals, meeting all LTGs. Pt discharged from facility, d/c from OT. Decreased Activ Tolerance, Decreased UE Strength, Impaired I ADL's PT Group Home Goals Traffic Operator Goals PT Group Home Goals Time Frame: Jan 31, 2021 Roll Left to Right (QC): 6 Sit to Lying (QC): 6 Lying-Sitting on Side/Bed(QC): 6 Sit to Stand (QC): 6 Chair/Lms-vb-Alqui Xfer(QC): 6 Car Transfer (QC): 6 Does the Patient Walk: Yes Walk 10 feet (QC): 6 Walk 10ft-Uneven Surface(QC): 6 Walk 50ft with 2 Turns (QC): 6 Walk 150 ft (QC): 6 Does the Pt use WC or Scooter?: No Wheel 50 feet with 2 turns (QC: 9 1 Step (curb) (QC): 6 4 Steps (QC): 6 12 Steps (QC): 9 Picking up an Object (QC): 6 (Utilizing cane for assistance) OT Traffic Operator Goals Group Home Goals Time Frame: Jan 30, 2021 Eating (QC): 6 (met) Oral Hygiene (QC): 6 (met) Shower/Bathe Self (QC): 6 (met) Upper Body Dressing (QC): 6 (met) Lower Body Dressing (QC): 6 (met) On/Off Footwear (QC): 3 (met) Toileting Hygiene (QC): 6 (met) Toilet/Commode Transfer (QC): 6 Additional Goals: 1-Demonstrate ADL Tasks, 2-Verbalize Understanding, 3- ImproveStrength/Rohini 1=Demonstrate adherence to instructed precautions during ADL tasks. 2=Patient will verbalize/demonstrate understanding of assistive d evices/modifications for ADL. 3=Patient will improve strength/tolerance for activity to enable patient to perform ADL's. MELISSA ARIAS OT Jan 08, 2021 09:57
== END 2021-01-07 10:30 | disposition home health service (06) | DRG 195 ==
PROVIDERS: ADMIT Internal Medicine; ATTEND Internal Medicine
DX: J18.9 Pneumonia, unspecified organism (principal); R53.1 Weakness; R53.81 Other malaise; R26.9 Unspecified abnormalities of gait and mobility; G47.33 Obstructive sleep apnea (adult) (pediatric); E11.9 Type 2 diabetes mellitus without complications; Z91.81 History of falling; R41.89 Other symptoms and signs involving cognitive functions and awareness; R32 Unspecified urinary incontinence; I10 Essential (primary) hypertension; E78.00 Pure hypercholesterolemia, unspecified; Z79.4 Long term (current) use of insulin; Z82.49 Family history of ischemic heart disease and other diseases of the circulatory system
CPT/HCPCS: 36415; 80053; 82962; 85025; 94640; 94664; 94760